=== PATIENT | female | born 1945 | race Caucasian/White ===

== ENCOUNTER 2018-01-18 20:08 | Emergency (ER) | payer MEDICARE, BC ==
[2018-01-18] MEDS ORDERED: diPHENhydraMINE IV* 50 MG/ML 1 ml VIAL (BENADRYL) IV ONE (20:34)
[2018-01-18] MEDS ORDERED: NS 0.9% 1000 ML* 1,000 ML IV ONE (20:34)
[2018-01-18] MEDS ORDERED: LORazepam INJ* 2 MG/ML 1 ML VIAL IV PUSH ONE (20:34)
[2018-01-18 21:08] LABS: ABS Basophils 0.1 10^3/ul (0-0.2); ABS Eosinophils 0.1 10^3/ul (0-0.6); ABS Lymphocytes 1.5 10^3/ul (1.0-4.8); ABS Monocytes 0.5 10^3/ul (0-0.8); ABS Neutrophils 5.7 10^3/ul (1.5-7.7); ABS Nucleated RBC 0 10^3/ul; Eosinophil % 0.8 % (0-6); Hematocrit 36 % (35-47); Hemoglobin 12.5 g/dl (12.0-16.0); Lymphocyte % 19.3 % (25-47); Mean Corpuscular HGB Conc 35 g/dl (31-36); Mean Corpuscular Hemoglobin 34 pg (27-31); Mean Corpuscular Volume 97 fL (80-97); Mean Platelet Volume 7.2 um3 (7.4-10.4); Nucleated Red Blood Cells % 0; Platelet Count 213 10^3/ul (150-450); Red Blood Count 3.68 10^6/ul (4.0-5.4); Red Cell Distribution Width 14 % (10.5-15); White Blood Count 7.8 10^3/ul (3.5-10.8)
[2018-01-18 21:24] LABS: EGFR Non-African American 44.7 (>60)
--- NOTE | 2018-01-18 22:50 | ED ---
Clarence Jones Jennifer, scribed for Masood Cesar MD on 01/18/18 at 203 . Neurological HPI - HPI Summary HPI Summary: The patient is a 72 year old female who presents with tremors for a while. The patient reports shes had tremors in her right arm, but she didnt think about it because she broke her right shoulder. However, the tremors have now spread to her left arm, legs, and entire body. She reports she was diagnosed with Parkinsons a couple months ago. She is able to walk but has been dropping things a lot. The patient denies any recent illness. - History of Current Complaint Stated Complaint: TREMORS Time Seen by Provider: 01/18/18 20:22 Hx Obtained From: Patient Onset/Duration: Gradual Onset, Still Present, Other - "for a while" Timing: Constant Onset Severity: Mild Current Severity: Mild Neurological Deficit Location: Generalized Character: Other: - Tremors Aggravating: Nothing Alleviating: Nothing Associated Signs and Symptoms: Positive: Negative - recent illness - Additional Pertinent History Primary Care Physician: CELINA - Allergy/Home Medications Allergies/Adverse Reactions: Allergies Allergy/AdvReac Type Severity Reaction Status Date / Time MS Atorvastatin Allergy Fatigue Verified 01/18/18 20:40 [Atorvastatin] High blood pressure med Allergy Unknown Unknown Uncoded 01/18/18 20:40 Reaction Details Home Medications: Home Medications Aspirin EC TAB* [Ecotrin EC Low Dose 81 MG*] 81 mg PO DAILY 01/18/18 [History Confirmed 01/18/18] Metoprolol Succinate XL TAB* [Toprol XL TAB*] 25 mg PO QAM 01/18/18 [History Confirmed 01/18/18] Valsartan/HCTZ 160/12.5(NF) [Diovan HCT 160/12.5 (NF)] 1 tab PO QAM 01/18/18 [ History Confirmed 01/18/18] metFORMIN* [Glucophage 850 MG TAB *] 850 mg PO BID 01/18/18 [History Confirmed 01/18/18] PMH/Surg Hx/FS Hx/Imm Hx Endocrine/Hematology History: Reports: Hx Diabetes Denies: Hx Anticoagulant Therapy, Hx Blood Disorders, Hx Blood Transfusions, Hx Bone Marrow Disease, Hx Systemic Lupus Erythematosus, Hx Sickle Cell Disease , Hx Thyroid Disease, Hx Anemia, Hx Unexplained Bleeding, Other Endocrine/ Hematological Disorders Cardiovascular History: Reports: Hx Hypercholesterolemia, Hx Hypertension Denies: Hx Aneurysm, Hx Angina, Hx Angioplasty, Hx Auto Implanted Cardiovert Defib, Hx Cardiac Arrest, Hx Cardiomegaly, Hx Congenital Heart Disease, Hx Congestive Heart Failure, Hx Coronary Artery Disease, Hx Deep Vein Thrombosis, Hx Embolism, Hx Hypotension, Hx Pacemaker/ICD, Hx Peripheral Vascular Disease, Hx Rheumatic Fever, Hx Syncope, Hx Valvular Heart Disease, Other Cardiovascular Problems/Disorders Respiratory History: Reports: Hx Pneumonia Denies: Hx Asthma, Hx Chronic Bronchitis, Hx Chronic Obstructive Pulmonary Disease (COPD), Hx Cystic Fibrosis, Hx Lung Cancer, Hx Pleural Effusion, Hx Pulmonary Edema, Hx Pulmonary Embolism, Hx Seasonal Allergies, Hx Sleep Apnea, Other Respiratory Problems/Disorders GI History: Denies: Hx Cirrhosis, Hx Crohn's Disease, Hx Diverticulosis, Hx Gall Bladder Disease, Hx Gastroesophageal Reflux Disease, Hx Gastrointestinal Bleed, Hx Hiatal Hernia, Hx Irritable Bowel, Hx Jaundice, Hx Obstructive Bowel, Hx Ileostomy, Hx Pyloric Stenosis, Hx Ulcer, Other GI Disorders Musculoskeletal History: Denies: Hx Arthritis Sensory History: Reports: Hx Cataracts, Hx Contacts or Glasses Denies: Hx Eye Injury, Hx Eye Prosthesis, Hx Glaucoma, Hx Legally Blind, Hx Macular Degeneration, Hx Vision Problem, Hx Deafness, Hx Hearing Aid, Hx Hearing Problem, Other Sensory Impairments Opthamlomology History: Reports: Hx Cataracts, Hx Contacts or Glasses Denies: Hx Eye Injury, Hx Eye Prosthesis, Hx Glaucoma, Hx Legally Blind, Hx Macular Degeneration, Hx Vision Problem, Other Sensory Impairments Neurological History: Reports: Other Neuro Impairments/Disorders - Parkinson's Denies: Hx Dementia, Hx Developmental Delay, Hx Headaches, Hx Migraine, Hx Nerve Disease, Hx Seizures, Hx Spinal Cord Injury, Hx Transient Ischemic Attacks (TIA) - Surgical History Surgery Procedure, Year, and Place: 2007 RIGHT shoulder repair, tonsilectomy, partial hip replacement Hx Anesthesia Reactions: No Infectious Disease History: Denies: Hx Hepatitis, Hx Human Immunodeficiency Virus (HIV), Hx of Known/ Suspected MRSA, Hx Tuberculosis - Family History Known Family History: Negative: Hypertension, Diabetes - Social History Alcohol Use: Rare Hx Substance Use: No Substance Use Type: Reports: None Hx Tobacco Use: Yes Smoking Status (MU): Heavy Every Day Tobacco Smoker Type: Cigarettes Amount Used/How Often: one pack a day Length of Time of Smoking/Using Tobacco: 40 years Have You Smoked in the Last Year: Yes Review of Systems Negative: Fever Neurological: Other - Tremors All Other Systems Reviewed And Are Negative: Yes Physical Exam - Summary Physical Exam Summary: Appearance: Well appearing, no pain distress, flat affect Skin: warm, dry, reflects adequate perfusion Head/face: flat facies Eyes: EOMI, [place] ENT: flat facies Neck: supple, non-tender Respiratory: CTA, breath sounds present Cardiovascular: RRR, pulses symmetrical Abdomen: non-tender, soft Bowel Sounds: present Musculoskeletal: normal, strength/ROM intact Neuro: Resting tremors noted mostly in RUE, mild tremor in LUE with intention, sensory motor intact, A&Ox3 Triage Information Reviewed: Yes Vital Signs On Initial Exam: Initial Vitals Temp Pulse Resp BP Pulse Ox 99 F 87 20 152/65 98 01/18/18 20:15 01/18/18 20:15 01/18/18 20:15 01/18/18 20:15 01/18/18 20:15 Vital Signs Reviewed: Yes Diagnostics - Vital Signs Vital Signs Temp Pulse Resp BP Pulse Ox 01/18/18 22:19 84 149/103 01/18/18 22:00 83 100 01/18/18 21:49 81 148/80 100 01/18/18 21:19 82 152/79 96 01/18/18 21:04 16 01/18/18 21:00 82 96 01/18/18 20:49 83 145/75 97 01/18/18 20:20 85 98 01/18/18 20:19 158/96 01/18/18 20:15 99 F 87 20 152/65 98 - Laboratory Lab Results: Lab Results 01/18/18 01/18/18 Range/Units 20:35 20:35 WBC 7.8 (3.5-10.8) 10^3/ul RBC 3.68 L (4.0-5.4) 10^6/ul Hgb 12.5 (12.0-16.0) g/dl Hct 36 (35-47) % MCV 97 (80-97) fL MCH 34 H (27-31) pg MCHC 35 (31-36) g/dl RDW 14 (10.5-15) % Plt Count 213 (150-450) 10^3/ul MPV 7.2 L (7.4-10.4) um3 Neut % (Auto) 72.9 (38-83) % Lymph % (Auto) 19.3 L (25-47) % [place] % (Auto) 6.1 (0-7) % Eos % (Auto) 0.8 (0-6) % Baso % (Auto) 0.9 (0-2) % Absolute Neuts (auto) 5.7 (1.5-7.7) 10^3/ul Absolute Lymphs (auto) 1.5 (1.0-4.8) 10^3/ul Absolute Monos (auto) 0.5 (0-0.8) 10^3/ul Absolute Eos (auto) 0.1 (0-0.6) 10^3/ul Absolute Basos (auto) 0.1 (0-0.2) 10^3/ul Absolute Nucleated RBC 0 10^3/ul Nucleated RBC % 0 Sodium 134 L (139-145) mmol/L Potassium 4.3 (3.5-5.0) mmol/L Chloride 97 L (101-111) mmol/L Carbon Dioxide 26 (22-32) mmol/L Anion Gap 11 (2-11) mmol/L BUN 27 H (6-24) mg/dL Creatinine 1.19 H (0.51-0.95) mg/dL Est GFR ( Amer) 57.5 (>60) Est GFR (Non-Af Amer) 44.7 (>60) BUN/Creatinine Ratio 22.7 H (8-20) Glucose 109 H (70-100) mg/dL Calcium 9.4 (8.6-10.3) mg/dL Result Diagrams: 01/18/18 20:35 01/18/18 20:35 Lab Statement: Any lab studies that have been ordered have been reviewed, and results considered in the medical decision making process. Re-Evaluation - Re-Evaluation First Eval Re-Evaluation Time: 21:32 Change: Improved Comment: Pt is improving, able to eat her sandwich. Course/Dx - Course Course Of Treatment: Patient with parkinsonism that is untreated as she will not take her medications due to side effects. She is here for other options. I treated her tremor with small doses of Ativan and Benadryl as well as IV hydration with success. She is feeling better. I have referred her to neurology which she states her doctor has been getting around to. Discharged to follow up with neurology, primary care physician. - Diagnoses Provider Diagnoses: Parkinsonism Discharge - Sign-Out/Discharge Documenting (check all that apply): Discharge/Admit/Transfer - Discharge Plan Condition: Improved Disposition: HOME Patient Education Materials: Parkinson Disease (ED), Tremors (ED) Referrals: Berhane Alex MD [Primary Care Provider] - Yaneth Odom MD [Medical Doctor] - Additional Instructions: Call for an appt with the neurologist in the morning. Benadryl can help, but it will make you drowsy. Talk to your doctor about other options for tremor. Modify your home with safety features to help prevent falls. Return if worse, new symptoms or other concerns. - Billing Disposition and Condition Condition: IMPROVED Disposition: HOME The documentation as recorded by the Clarence coombs Jennifer accurately reflects the service I personally performed and the decisions made by me, Masood Cesar MD.
[2018-01-18 23:19] VITALS: BP 133/72
== END 2018-01-18 23:30 | disposition home or self-care (01) ==
LOC: ED 20:08
DX: G20 Parkinson's disease (principal); Z88.8 Allergy status to other drugs, medicaments and biological substances; E11.9 Type 2 diabetes mellitus without complications; Z79.84 Long term (current) use of oral hypoglycemic drugs; I10 Essential (primary) hypertension; E78.00 Pure hypercholesterolemia, unspecified; F17.210 Nicotine dependence, cigarettes, uncomplicated
CPT/HCPCS: 36415; 80048; 85025; 96374; 96375; 99284; J1200; J2060

== ENCOUNTER 2018-05-02 02:51 | Inpatient (IN) | payer MEDICARE, BC ==
[2018-05-02] MEDS ORDERED: Tetan/Diph/Pertus SYR(Tdap)* 0.5 ML SYR(BOOSTRIX) use SYR IM ONE (03:03)
[2018-05-02] MEDS ORDERED: Acetaminophen TAB* 325 MG PO ONE ×2 (03:03→08:15)
[2018-05-02] MEDS ORDERED: NS 0.9% 1000 ML* 1,000 ML IV ONE (03:04)
[2018-05-02 03:26] LABS: ABS Basophils 0.1 10^3/ul (0-0.2); ABS Eosinophils 0.3 10^3/ul (0-0.6); ABS Lymphocytes 2.1 10^3/ul (1.0-4.8); ABS Monocytes 0.5 10^3/ul (0-0.8); ABS Neutrophils 6.3 10^3/ul (1.5-7.7); ABS Nucleated RBC 0 10^3/ul; Eosinophil % 2.9 % (0-6); Hematocrit 41 % (35-47); Hemoglobin 14.1 g/dl (12.0-16.0); Mean Corpuscular HGB Conc 35 g/dl (31-36); Mean Corpuscular Hemoglobin 34 pg (27-31); Mean Corpuscular Volume 99 fL (80-97); Mean Platelet Volume 7.7 um3 (7.4-10.4); Nucleated Red Blood Cells % 0; Platelet Count 216 10^3/ul (150-450); Red Blood Count 4.13 10^6/ul (4.00-5.40); Red Cell Distribution Width 15 % (10.5-15); White Blood Count 9.3 10^3/ul (3.5-10.8)
[2018-05-02] MEDS ORDERED: Lidocaine 2% EPI 1:200000 MPF*10-20 ML VIAL ONE (03:27)
--- NOTE | 2018-05-02 03:29 | ED ---
Head Injury - HPI Summary HPI Summary: This is corin Escamilla documenting for Dr. Ramirez Stiles MD. Pt is 72 y/o F BIBA to ED c/o head injury. She fell at home but isnt sure as to how. Notes multiple lacerations over arms and forehead. Rates her pain intensity as 3/10 in severity. Denies alcohol use. PMHx of Parkinson's Disease. - History Of Current Complaint Chief Complaint: EDHeadInjury Stated Complaint: FALL, HEAD LAC Time Seen by Provider: 05/02/18 03:01 Hx Obtained From: Patient Mechanism Of Injury: Fall From A Standing Position Onset/Duration: Started Hours Ago, Still Present Severity Currently: Mild Pain Intensity: 3 Pain Scale Used: 0-10 Numeric Location of Head Injury: Frontal - Allergies/Home Medications Allergies/Adverse Reactions: Allergies Allergy/AdvReac Type Severity Reaction Status Date / Time atorvastatin Allergy Fatigue Verified 05/02/18 03:01 High blood pressure med Allergy Unknown Unknown Uncoded 05/02/18 03:01 Reaction Details PMH/Surg Hx/FS Hx/Imm Hx Endocrine/Hematology History: Reports: Hx Diabetes Denies: Hx Anticoagulant Therapy, Hx Blood Disorders, Hx Blood Transfusions, Hx Bone Marrow Disease, Hx Systemic Lupus Erythematosus, Hx Sickle Cell Disease , Hx Thyroid Disease, Hx Anemia, Hx Unexplained Bleeding, Other Endocrine/ Hematological Disorders Cardiovascular History: Reports: Hx Hypercholesterolemia, Hx Hypertension Denies: Hx Aneurysm, Hx Angina, Hx Angioplasty, Hx Auto Implanted Cardiovert Defib, Hx Cardiac Arrest, Hx Cardiomegaly, Hx Congenital Heart Disease, Hx Congestive Heart Failure, Hx Coronary Artery Disease, Hx Deep Vein Thrombosis, Hx Embolism, Hx Hypotension, Hx Pacemaker/ICD, Hx Peripheral Vascular Disease, Hx Rheumatic Fever, Hx Syncope, Hx Valvular Heart Disease, Other Cardiovascular Problems/Disorders Respiratory History: Reports: Hx Pneumonia Denies: Hx Asthma, Hx Chronic Bronchitis, Hx Chronic Obstructive Pulmonary Disease (COPD), Hx Cystic Fibrosis, Hx Lung Cancer, Hx Pleural Effusion, Hx Pulmonary Edema, Hx Pulmonary Embolism, Hx Seasonal Allergies, Hx Sleep Apnea, Other Respiratory Problems/Disorders GI History: Denies: Hx Cirrhosis, Hx Crohn's Disease, Hx Diverticulosis, Hx Gall Bladder Disease, Hx Gastroesophageal Reflux Disease, Hx Gastrointestinal Bleed, Hx Hiatal Hernia, Hx Irritable Bowel, Hx Jaundice, Hx Obstructive Bowel, Hx Ileostomy, Hx Pyloric Stenosis, Hx Ulcer, Other GI Disorders History: Denies: Hx Renal Disease Musculoskeletal History: Denies: Hx Arthritis Sensory History: Reports: Hx Cataracts, Hx Contacts or Glasses Denies: Hx Eye Injury, Hx Eye Prosthesis, Hx Glaucoma, Hx Legally Blind, Hx Macular Degeneration, Hx Vision Problem, Hx Deafness, Hx Hearing Aid, Hx Hearing Problem, Other Sensory Impairments Opthamlomology History: Reports: Hx Cataracts, Hx Contacts or Glasses Denies: Hx Eye Injury, Hx Eye Prosthesis, Hx Glaucoma, Hx Legally Blind, Hx Macular Degeneration, Hx Vision Problem, Other Sensory Impairments Neurological History: Reports: Other Neuro Impairments/Disorders - Parkinson's Denies: Hx Dementia, Hx Developmental Delay, Hx Headaches, Hx Migraine, Hx Nerve Disease, Hx Seizures, Hx Spinal Cord Injury, Hx Transient Ischemic Attacks (TIA) Psychiatric History: Reports: Hx Panic Disorder - WITH TESTS/DRS - Surgical History Surgery Procedure, Year, and Place: 2007 RIGHT shoulder repair,. tonsilectomy, . partial hip replacement D/T FX, Hx Anesthesia Reactions: No Infectious Disease History: No Infectious Disease History: Denies: Hx Hepatitis, Hx Human Immunodeficiency Virus (HIV), Hx of Known/ Suspected MRSA, Hx Tuberculosis, Traveled Outside the [place] in Last 30 Days - Family History Known Family History: Negative: Hypertension, Diabetes - Social History Alcohol Use: Rare Hx Substance Use: No Substance Use Type: Reports: None Hx Tobacco Use: Yes Smoking Status (MU): Heavy Every Day Tobacco Smoker Type: Cigarettes Amount Used/How Often: one pack a day Length of Time of Smoking/Using Tobacco: 40 years Have You Smoked in the Last Year: Yes Review of Systems Negative: Fever Positive: Other - lacerations on arms and forehead All Other Systems Reviewed And Are Negative: Yes Physical Exam - Summary Physical Exam Summary: VITAL SIGNS: Reviewed. GENERAL: Patient is a well-developed and nourished female who is lying comfortable in the stretcher. Patient is not in any acute respiratory distress. HEAD AND FACE: 10 cm laceration over right forehead. No ecchymosis, hematomas or skull depressions. No sinus tenderness. EYES: PERRLA, EOMI x 2, No injected conjunctiva, no nystagmus. EARS: Hearing grossly intact. Ear canals and tympanic membranes are within normal limits. MOUTH: Oropharynx within normal limits. NECK: Supple, trachea is midline, no adenopathy, no JVD, no carotid bruit, no c- spine tenderness, neck with full ROM. CHEST: Symmetric, no tenderness at palpation LUNGS: Clear to auscultation bilaterally. No wheezing or crackles. CVS: Regular rate and rhythm, S1 and S2 present, no murmurs or gallops appreciated. ABDOMEN: Soft, non-tender. No signs of distention. No rebound no guarding, and no masses palpated. Bowel sounds are normal. EXTREMITIES: Multiple skin tears over both arms, tremors. FROM in all major joints, no edema, no cyanosis or clubbing. NEURO: Alert and oriented x 3. No acute neurological deficits. Speech is normal and follows commands. SKIN: Dry and warm Triage Information Reviewed: Yes Vital Signs On Initial Exam: Initial Vitals Temp Pulse Resp BP Pulse Ox 98.4 F 103 18 164/92 94 05/02/18 02:53 05/02/18 02:53 05/02/18 02:53 05/02/18 02:53 05/02/18 02:53 Vital Signs Reviewed: Yes Procedures - Laceration/Wound Repair 1 Location: face - right forehead Description: Linear Anesthesia: 2.0%, Lido Length, Depth and Shape: 10 cm Irrigated w/ Saline (ccs): 200 Laceration/Wound Explored: clean Suture Type: Nylon - 4-0 Number of Sutures: 22 Diagnostics - Vital Signs Vital Signs Temp Pulse Resp BP Pulse Ox 05/02/18 02:53 98.4 F 103 18 164/92 94 - Laboratory Result Diagrams: 05/02/18 03:14 05/02/18 03:14 Lab Statement: Any lab studies that have been ordered have been reviewed, and results considered in the medical decision making process. - Radiology CXR Radiology Interpretation Completed By: ED Physician - No acute pathology, pending official report. - CT CT Head CT Interpretation Completed By: Radiologist - IMPRESSION: Moderate volume loss and small vessel ischemic changes. No acute intracranial abnormality. Mild right frontal soft tissue swelling and punctate foci of air. ED Physician reviewed this report. CT Cervical Spine CT Interpretation Completed By: Radiologist - IMPRESSION: No acute findings. ED Physician reviewed this report. CT Maxillofacial CT Interpretation Completed By: Radiologist - IMPRESSION: No acute fracture or dislocation. Mild frontal soft tissue swelling, laceration, and foci of air. ED Physician reviewed this report. - EKG 4:12 Cardiac Rate: NL - 80 bpm EKG Rhythm: Sinus Rhythm EKG Interpretation: RBBB. Normal axis. Normal interval. No ischemic changes. Head Injury Course/Dx Course Of Treatment: Pt is 72 y/o F BIBA to ED c/o head injury. She fell at home but isnt sure as to how. Notes multiple lacerations over arms and forehead. Rates her pain intensity as 3/10 in severity. Denies alcohol use. PMHx of diabetes, HTN, and Parkinsons Disease. Physical exam revealed 10 cm laceration over right forehead, multiple skin tears over both arms, and tremors. EKG at 4:12 showed normal sinus rhythm at 80 bpm with normal axis, normal interval, no ischemic changes, and RBBB. CT Head showed moderate volume loss and small vessel ischemic changes, no acute intracranial abnormality, and mild right frontal soft tissue swelling and punctate foci of air. ED Physician reviewed this report and agrees. CT Cervical spine showed no acute findings. ED Physician reviewed this report and agrees. CT Maxillofacial shows no acute fracture or dislocation, mild frontal soft tissue swelling, laceration, and foci of air. ED Physician reviewed this report and agrees. CXR shows no acute pathology, pending official report. In ED course pt was given fluids, Boostrix, and Tylenol. Pt expressed suicidal ideation and depression, and found to be intoxicated. Pt will be evaluated by mental health when alcohol levels lower. Pt diagnosed with alcohol intoxication and depression. Pt signed out to Dr. Cortes awaiting mental health evaluation. - Diagnoses Provider Diagnoses: Alcohol intoxication, Depression Discharge - Sign-Out/Discharge Documenting (check all that apply): Sign-Out Patient Signing out patient TO: Bean Cortes - Discharge Plan Referrals: Berhane Alex MD [Primary Care Provider] -
[2018-05-02 03:37] LABS: INR 0.81 (0.77-1.02)
[2018-05-02 03:40] LABS: EGFR Non-African American 43.4 (>60)
--- OUTSIDE RECORDS SUMMARY | 2018-05-02 05:07 | XMS REPORT ---
:1945 External Reference #:[id number] Author Organization [employer] Address [address] [place] [address] [place] [address] Phone [phone] Care Team Providers Name Role Phone Berhane Alex MD Primary Care Physician Unavailable Payers Type Date Identification Numbers Payment Provider Subscriber Medicare Primary Effective: Policy Number: Medicare Radha Mckinney 2011 [id number] PayID: [id number] [address] [place] [address] Medigap Part B Effective: 2011 Policy Number: BS Merged With [facility] Radha Mckinney [id number] PayID: [id number] [address] [address] [place] [address] Medigap Part B Expires: 2013 Policy Number: BS [facility] Radha Mckinney [id number] PayID: [id number] [address] [address] [place] [address] Problems Date Description Provider Status Onset: 03/20/2016 Closed fracture of neck of femur Kasandra Pritchard M.D. Active Onset: 03/20/2016 Prosthetic arthroplasty of the hip Kasandra Pritchard M.D. Active Onset: 04/19/2018 Chronic fatigue syndrome Will Ace M.D. Active Onset: 04/19/2018 Essential tremor Will Ace M.D. Active Onset: 04/19/2018 Parkinson's disease Will Ace M.D. Active Family History Date Family Member(s) Problem(s) Comments General Diabetes General Cancer General Hypertension Father due to Diabetes () Mother due to Lung Cancer () Social History Type Date Description Comments Lives With Alone Occupation Retired Hand Dominance Left-handed ETOH Use Occasionally consumes alcohol Smoking Patient is a current smoker, smokes every day Exercise Type/Frequency Does not exercise Allergies, Adverse Reactions, Alerts Date Description Reaction Status Severity Comments 02/14/2016 Atorvastatin active 04/06/2016 Lipitor active Medications Medication Date Status Form Strength Qnty SIG Indications Ordering Provider Primidone 04/19 Active Tablets 50mg 60tab take 1 G20 s tablet Janet Ace by mouth twice a day Lovastatin Active Tablets 40mg 1 by Unknown /0000 mouth every night at bedtime Metformin HCL Active Tablets 850mg 1 by Unknown /0000 mouth twice a day Aspir-81 Active Tablets 81mg 1 by Unknown /0000 DR mouth every day Metoprolol Active Tablets 25mg Take 1 Unknown Succinate ER /0000 ER 24HR Tablet By Mouth Every Day Valsartan-Hydrochl Active Tablets 160-12.5m Take 1 Unknown orothiazide /0000 g Tablet By Mouth Every Day Chlordiazepoxide 00 Hx Capsules 25mg twice a Unknown HCL /0000 day - 04/17 Docusate Sodium 00 Hx Capsules 100mg 1 by Unknown /0000 mouth - twice a Omeprazole Hx Capsules 20mg 1 by Unknown /0000 DR mouth - every Zoloft Hx Tablets 25mg 1 by Unknown /0000 mouth - every Metoprolol Hx Tablets 25mg 1 by Unknown Tartrate /0000 mouth - twice a Vitamin D-3 Hx Capsules 1000Unit 1 by Unknown /0000 mouth - every Tamiflu Hx Capsules 75mg 1 by Unknown /0000 mouth - twice a 03/19 day x days Carbidopa-Levodopa Hx Tablets 25-100mg Take 1 Unknown /0000 Tablet - By Mouth 04/18 Twice Day Primidone Hx Tablets 50mg Take 1 Unknown /0000 Tablet - By Mouth 04/18 Every Hours Metoprolol 00 Hx Tablets 25mg Take 1 Unknown Succinate ER /0000 ER 24HR Tablet - By Mouth 04/18 Day Vital Signs Date Vital Result Comment 04/19/2018 Height 67 inches 5'7" Weight 130.00 lb Heart Rate 84 /min BP Systolic 112 mmHg BP Diastolic 78 mmHg Respiratory Rate 16 /min BMI (Body Mass Index) 20.4 kg/m2 09/14/2016 Height 67 inches 5'7" Heart Rate 83 /min BP Systolic 151 mmHg BP Diastolic 72 mmHg Pain Level 1 06/05/2016 Height 67 inches 5'7" Weight 130.00 lb Pain Level 0 BMI (Body Mass Index) 20.4 kg/m2 05/01/2016 Height 67 inches 5'7" Weight 130.00 lb Pain Level 1 BMI (Body Mass Index) 20.4 kg/m2 04/06/2016 Height 67 inches 5'7" Weight 130.00 lb Pain Level 2 BMI (Body Mass Index) 20.4 kg/m2 03/20/2016 Height 67 inches 5'7" Weight 130.00 lb Pain Level 3 BMI (Body Mass Index) 20.4 kg/m2 Results Description No Information Procedures Date CPT Code Description Status 01/19/2016 32620 Open TX Of Femoral FX,Promimal End,Neck Internal Completed Fixation 01/19/2016 30759 Open TX Of Femoral FX,Promimal End,Neck Internal Completed Fixation Encounters Type Date Location Provider CPT E/M Dx Office Visit 04/19/2018 [place] Christoph Ace M.D. 42006 G20 10:30a [facility] G25.0 R53.82 Office Visit 09/14/2016 2:45p [facility] Prit[facility] M.D. 33489 Z96.642 C.MJose Antonio T84.021D Office Visit 06/05/2016 2:00p [facility] P[facility] 94015 T84.021D Melodie Gonzales Z96.642 Office Visit 05/01/2016 2:00p [facility] 52314 T84.021D Melodie Gonzales Z96.642 Z47.1 Office Visit 04/06/2016 1:30p [facility] 91024 T84.021D Melodie Gonzales Z47.1 Z96.642 Office Visit 04/05/2016 9:59a [facility] Gisela Perry, 17874 S73.005A Assoc, Hospitalists Janet I10 Office Visit 04/04/2016 9:59a [facility] Crescencio Mart, 58393 E78.5 Hospitalists N.P. E11.9 S73.005A I10 Office Visit 02/03/2016 2:31p [facility] Jasvir Marvin M.D. 87269 E16.2 Hospitalists E11.9 S72.002D Office Visit 01/21/2016 1:49p [facility] [address], 30520 E11.9 Hospitalists Janet E78.0 S72.002A I10 Office Visit 01/20/2016 1:48p [facility] [address], [address]77 E11.9 Hospitalists Janet E78.0 S72.002A I10 Office Visit 01/19/2016 1:47p [facility] [place], [address] E11.9 Assoc, Hospitalists Janet E78.0 S72.002A I10 Office Visit 01/19/2016 7:00a [facility] [place] [address] S72.042A C.M.A. Office Visit 01/20/2010 12:45a [facility] Luigi Corcoran, 25690 780.97 Assoc, Hospitalists Janet 305.00 250.02 401.9 Office Visit 01/19/2010 3:45a [facility] Alec Zavala, 76030 305.00 Assoc, Hospitalists Janet 401.9 272.4 250.00 Plan of Care Future Appointment(s):06/07/2018 11:30 am - Will Ace M.D. at [place] [facility]04/19/2018 - Will Ace M.D.G20 Parkinson's diseaseNew Medication:Primidone 50 mgNew Xrays:MRI Brain W/OFollow up:Follow up in 6 weeksRecommendations:Call me in 4 weeks if no eqsjimT57.0 Essential ozvqrpE52.82 Chronic fatigue, unspecified
--- NOTE | 2018-05-02 07:10 | UC ---
- Progress Note Progress Note: This patient was signed out from Dr. Stiles to Dr. Cortes, awaiting MHE. Upon re- eval at 0830, the patient has a FREDERICK but is A&Ox3. She was given Toradol and Tylenol. MHE done by Dr. Benson at 0909. The patient was supposed to be discharged with dx of alcohol intoxication. Dr. Benson recommended a psychologist social consult. Patient understands and agrees. Upon re-eval at 1152 of [place] the psychologist social, the patient is very, very sad and depressed. Therefore, we will consult Dr. Benson for another re-eval of the patient for depression. Consulted Dr. Benson at 1219 who accepts the patient for admission with dx of alcohol intoxication, depression, and SI. Re-Evaluation - Re-Evaluation First Eval Re-Evaluation Time: 08:20 Change: Unchanged - Pt. is AOx3 and has a FREDERICK. She was given Toradol and Tylenol and waiting for a MHE. Course/Dx - Diagnoses Provider Diagnoses: Alcohol intoxication, Depression, Suicidal ideation Discharge - Sign-Out/Discharge Documenting (check all that apply): Patient Departure - Discharge Plan Condition: Stable Disposition: ADMITTED TO [facility] Referrals: Berhane Alex MD [Primary Care Provider] -
--- NOTE | 2018-05-02 07:40 | RAD ---
INDICATION: Fall COMPARISON: Most recent comparison chest x-rays dated January 20, 2016 TECHNIQUE: Single AP portable view of the chest was obtained. FINDINGS: Image quality is compromised due to the relative inferiority of a portable chest x-ray. The heart and mediastinum exhibit normal size and contour. The lungs are grossly clear. There is no evidence of a large pleural effusion. The right proximal humerus plate and screw fixator is anatomically aligned. There is evidence of bilateral healed rib fractures stable on the left and new on the right since the January 20, 2016 chest x-ray. IMPRESSION: 1. There are new chronic appearing rib fractures at the right posterior sixth, seventh and eighth ribs relative to the January 20, 2016 chest x-ray. 2. Otherwise no radiographic evidence for acute cardiopulmonary abnormality on this portable chest x-ray. R0
--- NOTE | 2018-05-02 07:59 | RAD ---
indication: For head laceration above the right eye after a fall COMPARISON: None A CT scan of the brain, maxillofacial bones and c-spine was performed without intravenous contrast enhancement. Contiguous axial sections were obtained from the lung apices through the vertex of the skull. BRAIN: The ventricles, cisterns and sulci exhibit symmetrical involutional changes. No significant focal abnormality or mass effect is seen. There is mild periventricular and subcortical white matter hypoattenuation most consistent with chronic microvascular disease. The austin-white differentiation is adequately maintained. There is no evidence for intracranial hemorrhage. The calvarium is intact without radiographically apparent fracture. The mastoid air cells are appropriately aerated. FACIAL BONES: There is mild infiltration and thickening of the soft tissues overlying the right frontal bone as well as several foci of gas consistent with soft tissue injury/laceration. Bones: There is no displaced fracture or dislocation. The orbital rim is intact. The zygomatic arch is intact. The pterygoid plates are intact Orbits: The globes are round. The optic nerves are symmetric. The extraocular musculature is normal. There is no post septal or intraconal inflammatory change. There is no retrobulbar hematoma. Paranasal Sinuses: There is very mild mucosal thickening of the right maxillary sinus and mild nodular mucosal thickening of the left maxillary sinus. The remaining visualized sinuses are clear. C-SPINE: On the sagittal view images the vertebral bodies and bilateral facet joints are correctly aligned. The dens is intact and the atlantoaxial interval is not widened. Degenerative changes include loss of intervertebral disc height and mild marginal osteophyte formation. The most severe degenerative changes are seen at C6/C7. There is uncovertebral hypertrophy at this same level. There is no prevertebral soft tissue swelling. There is no hyperdense material in the cervical canal to indicate hemorrhage. The visualized musculature and soft tissues are normal. There is no gross lymphadenopathy visualized. There is at least one 4 mm hypoattenuating focus in the right lobe of the thyroid. There is coarse calcification at the bilateral carotid bulbs and visualized portion of the left subclavian artery. The visualized portion of the lung apices are clear. IMPRESSION: 1. No calvarial fracture or acute intracranial hemorrhage. 2. There is evidence of superficial soft tissue injury overlying the right frontal bone without underlying facial bone fractures. 3. Degenerative changes of the cervical spine without acute fracture or dislocation. 4. Mild heterogeneity of the thyroid with 4 mm hypoattenuating in the right lobe. If clinically warranted superior characterization of the thyroid can be made with nonemergent ultrasound.
[2018-05-02] MEDS ORDERED: Ketorolac INJ* 30 MG/ML 1 ML VIAL IV PUSH ONE (08:15)
[2018-05-02 08:44] LABS: Urine Appearance Cloudy; Urine Blood Negative (Negative); Urine Color Yellow; Urine Ketones Negative (Negative); Urine Protein Negative (Negative); Urine Urobilinogen Negative (Negative)
[2018-05-02] MEDS ORDERED: Al Hydrox/Mg Hydrox/Simet LIQ* 30 ML UDC PO PRN (12:20)
[2018-05-02] MEDS ORDERED: Thiamine IV* 100 MG/ML 2 ML VIAL IM ONE (12:23)
[2018-05-02] MEDS ORDERED: LORazepam TAB(*) 1 MG PO SCH (13:00)
[2018-05-02] MEDS: Acetaminophen TAB* 325 MG PO PRN (21:09)
[2018-05-02] MEDS: metFORMIN* 850 MG TAB PO SCH (21:09)
[2018-05-02] MEDS: Aspirin EC TAB* 81 MG TAB.EC PO SCH (21:16)
[2018-05-02] MEDS: Valsartan TAB* 160 MG PO SCH (21:16)
[2018-05-02] MEDS: Metoprolol Succinate XL TAB* 25 MG PO SCH (21:16)
[2018-05-03] MEDS: Acetaminophen TAB* 325 MG PO PRN ×3 (02:15→22:54)
[2018-05-03] MEDS: Valsartan TAB* 160 MG PO SCH (08:20)
[2018-05-03] MEDS: Metoprolol Succinate XL TAB* 25 MG PO SCH (08:21)
[2018-05-03] MEDS: Hydrochlorothiazide TAB* 25 MG PO SCH (08:21)
[2018-05-03] MEDS: Thiamine TAB* 100 MG TAB PO SCH (08:22)
[2018-05-03] MEDS: Aspirin EC TAB* 81 MG TAB.EC PO SCH (08:22)
[2018-05-03] MEDS: metFORMIN* 850 MG TAB PO SCH ×2 (08:22→21:20)
[2018-05-03] MEDS: Folic Acid TAB* 1 MG PO SCH (08:23)
[2018-05-03] MEDS: Multivitamins/Minerals TAB PO SCH (08:23)
--- NOTE | 2018-05-03 13:01 | PN ---
[facility]HU: Group Therapy Note - Service Type Service Type: 68388 Group Psychotherapy - Cognitive Behavioral Group Therapy ( CBT):Patient was attentive and participatory in CBT programming this morning, and remained in good behavioral control. Patient expressed positive insights regarding relevant treatment interventions and goals.
[2018-05-03] MEDS: Primidone TAB(*) 50 MG PO SCH ×2 (13:31→21:19)
--- NOTE | 2018-05-03 15:42 | HP ---
HISTORY AND PHYSICAL: DATE OF ADMISSION: 05/02/18 PROVIDER: Brisa Pena NP in Psychiatry SUPERVISING PHYSICIAN: Fabian Benson MD * (DICTATED BY BRISA PENA NP ) JUSTIFICATION FOR ADMISSION: The patient is in need of 24-hour supervision and care secondary to suicidal ideation. CHIEF COMPLAINT: "This is all my fault. Never in a 100 years would I do anything." HISTORY OF PRESENT ILLNESS: The patient is a 72-year-old single female with no history of mental illness who arrives brought in by ambulance after falling and hitting her head and getting a large laceration on her forehead requiring 22 stitches as well as skin tears to lower left and right arms. Radha got a diagnosis of Parkinson's disease 3 months ago and since then has been drinking more and has been struggling with depression and anxiety. She states that she does not have a wish to , but she is depressed and she thinks that it is entirely linked to the diagnosis. She has not gotten any therapy for dealing with the stress of the diagnosis and she is not sure that she wants to. Another stressor is that she lives alone. She is afraid she is going to fall in the shover and not have anyone to help her get up and that she will there. She is sleeping alright. She feels guilt about coming to the hospital. She cannot concentrate here. She is a very slow walker, but I think that is to keep herself from falling. She denies suicidal ideation. PAST PSYCHIATRIC HISTORY: She denies any previous admissions. Denies previous suicide attempts or ideation. Denies access to weapons. Denies trauma. Denies TBI. Denies previous psychiatric meds. PAST MEDICAL HISTORY: Significant for this current fall and for Parkinson's disease, which she was diagnosed with by Dr. Will Ace, a Neurologist in [place], [place]. FAMILY HISTORY: She states there is no psychiatric history on either mom or dad 's side. SUBSTANCE ABUSE: She does smoke cigarettes and she does drink alcohol. She states she drinks more alcohol now that she has this diagnosis of Parkinsons, but in the past she drinks 3 to 5 drinks a week. SOCIAL HISTORY: She lives alone in [place], [place]. She denies history of abuse. She went to college for social science. She is not . 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 She has never been in , has no legal problems. REVIEW OF SYSTEMS: The patient reports feeling fatigued. She denies shortness of breath. She is cold, but the unit is chilly. She denies chest pain or abdominal pain. She has Parkinson's symptoms such as tremors and lack of balance. She denies fevers or changes in weight. It should be noted that she is quite slim with papery skin. PHYSICAL EXAMINATION On 05/03/18, at 07:44 in the morning her temperature was 97.7, pulse was 72, respirations 16, O2 sat on room air 98%, and blood pressure 149/63. For further exam data, please see emergency department records. LABORATORY DATA: Radha has elevated MCV and MCH. Lymph percentage is a little low, her sodium is low at 133, chloride is low at 98, carbon dioxide is low at 19, anion gap is high at 16, BUN is high at 31, and creatinine is high at 1.22. BUN and creatinine ratio is 25.4, glucose is 111. Hemoglobin A1c is 5.6, triglycerides 91, cholesterol 186, LDL cholesterol 93, HDL cholesterol 75.1. Urinalysis was negative toxicology. There is a presumptive positive on the barbiturates screen, which is due to her taking primidone and her serum alcohol level came back at 222. MENTAL STATUS EXAM: This is a woman who was once 5 feet 7 inches, is now shorter due to appearing to have shrunken a bit. She is quite skinny, weighing only about 130 pounds. She has white hair. She has a gash on her forehead requiring 22 stitches. She has wounds on her lower arms. She is hypokinetic. She is calm, but she is tearful. Her speech is normal rate, tone, and volume. She is dysthymic. She is crying throughout our interview. Her thought process, rate is normal and she is logical and not delusional. She is not homicidal, not suicidal. She is having no hallucinations. Her insight is good. Her judgement is good. She is alert and oriented x3. DIAGNOSES: [place] I: Adjustment disorder, depressive disorder. Rule out anxiety disorder. [place] II: Deferred. [place] III: Parkinson's and diabetes. IMPRESSION: Radha is a 72-year-old woman who has a recent diagnoses of Parkinson's disorder, which she is grieving. It appears that when she fell and was intoxicated, she made statements that indicated she might be considering suicide. In her more common movements of sobriety, she does not feel that way and would really like to leave the unit. PLAN: The patient is admitted to the Adult Behavioral Health Unit and placed on q.15 minute checks for her own safety. The patient is encouraged to participate in supportive milieu, individual, and group therapies. Estimated length of stay is 1 to 3 days. We will titrate medications to efficacy and monitor for mood and thought content. Discharge planning will include outpatient providers. BRISA PENA, AMAURY [id number]/[facility] #: [id number] VITALIY
[2018-05-04 07:57] VITALS: BP 150/66
[2018-05-04] MEDS: Folic Acid TAB* 1 MG PO SCH (09:26)
[2018-05-04] MEDS: Hydrochlorothiazide TAB* 25 MG PO SCH (09:26)
[2018-05-04] MEDS: metFORMIN* 850 MG TAB PO SCH (09:26)
[2018-05-04] MEDS: Metoprolol Succinate XL TAB* 25 MG PO SCH (09:26)
[2018-05-04] MEDS: Aspirin EC TAB* 81 MG TAB.EC PO SCH (09:26)
[2018-05-04] MEDS: Primidone TAB(*) 50 MG PO SCH (09:27)
[2018-05-04] MEDS: Thiamine TAB* 100 MG TAB PO SCH (09:27)
[2018-05-04] MEDS: Valsartan TAB* 160 MG PO SCH (09:27)
[2018-05-04] MEDS: Multivitamins/Minerals TAB PO SCH (09:27)
--- NOTE | 2018-05-05 03:51 | DS ---
DISCHARGE SUMMARY: DATE OF ADMISSION: 05/02/18 DATE OF DISCHARGE: 05/04/18 PROVIDER: Brisa Pena NP, in Psychiatry. SUPERVISING PHYSICIAN: Dr. Fabian Benson.* (DICTATED BY BRISA PENA NP ) DIAGNOSES: [place] I: Grieving and adjustment disorder. [place] II: Deferred. CONDITION AT THE TIME OF DISCHARGE: Improved. Psychiatrically cleared, stable. Participated in groups, social with peers. She has done well here psychiatrically. No new meds were started. She will attend treatment with an outpatient psychologist. MENTAL STATUS EXAM: At the time of discharge, Radha is calm, cooperative, makes good eye contact. She is alert and oriented x3. Her grooming is good. Her speech pace is normal. Thought processes are logical. She is not psychotic , delusional, and she denies AH, VH, SI, and HI. Her insight and judgment are good. She is willing to follow up. DISCHARGE INSTRUCTIONS TO THE PATIENT: A. Medications: There are no medications started but she came in on: 1. Aspirin 81 mg daily. 2. Folic acid 1 mg daily. 3. Hydrochlorothiazide 12.5 mg q.a.m. 4. Metformin 850 p.o. b.i.d. 5. Metoprolol XL 25 mg q.a.m. 6. Primidone 50 mg b.i.d. 7. Thiamine 100 mg daily. 8. Valsartan 160 mg q.a.m. B. Diet: Diabetic. C. Activities: As tolerated. She is a nonsmoker at this time. There are no studies pending at the time of discharge. D. Followup Care: She has appointments with Denise Ramírez, visiting nurse services, and Dr. Berhane Alex, her primary care physician. E. Substance abuse followup: Not indicated at this time. HOSPITAL COURSE: Part A. Chief complaint: "This is all my fault, never in one hundred years would I do anything." The patient is a 72-year-old single female with no history of mental illness, who arrived, brought in by ambulance after falling and hitting her head and getting a large laceration on her forehead requiring 22 stitches as well as skin tears to lower left and right arms. Radha got a diagnosis of Parkinson's disease 3 months ago and since then has been drinking more and has been struggling with depression and anxiety. She states that she does not have a wish to but she is depressed and she thinks that it is entirely linked to the diagnosis. She has not gotten any therapy for dealing with stress of the diagnosis and she is not sure that she wants to. Her another stressor is that she lives alone. She is afraid she is going to fall in the shower and not have anyone help her get up and that she will there. She is sleeping alright. She feels guilty about coming to the hospital. She cannot concentrate here. She is a very slow walker, but I think that is to keep herself from falling. She denies suicidal ideation. Part B. Psychiatric treatment was rendered. The patient was admitted to the adult behavioral unit and placed on 15-minute checks for safety. Radha was quite tearful throughout her visit as she did not want to be here and then once she found out that she was leaving, she was crying tears of happiness. There were no med changes made as she did not want to start any psychiatric meds. I did discuss with her the possibility of an SSRI and she said she would consider that for later. She does not have any family close by. No consults were entered. She is much improved. She still feels guilty about coming to the hospital and she feels foolish for drinking too much and falling. We did discuss her drinking and she agreed to drink less and she is happy to be having been assigned to visiting nurse services and she agrees to follow up with them. BRISA PENA, AMAURY [id number]/[facility] #: [id number] VITALIY
== END 2018-05-04 14:30 | disposition home or self-care (01) | DRG 881 ==
LOC: ED 02:51 → BSU 14:08
PROVIDERS: ADMIT Psychiatry & Neurology Psychiatry; ATTEND Psychiatry & Neurology Psychiatry
PROC: 0HQ1XZZ Repair Face Skin, External Approach (ICD-10-PCS; principal; 2018-05-02)
PROC: GZHZZZZ Group Psychotherapy (ICD-10-PCS; 2018-05-03)
DX: F43.21 Adjustment disorder with depressed mood (principal); R45.851 Suicidal ideations; G20 Parkinson's disease; E11.9 Type 2 diabetes mellitus without complications; H26.9 Unspecified cataract; E78.00 Pure hypercholesterolemia, unspecified; Y90.9 Presence of alcohol in blood, level not specified; I10 Essential (primary) hypertension; F10.929 Alcohol use, unspecified with intoxication, unspecified; Z96.649 Presence of unspecified artificial hip joint; F41.9 Anxiety disorder, unspecified; F17.210 Nicotine dependence, cigarettes, uncomplicated; S01.81XA Laceration without foreign body of other part of head, initial encounter; S51.812A Laceration without foreign body of left forearm, initial encounter; W19.XXXA Unspecified fall, initial encounter; S51.811A Laceration without foreign body of right forearm, initial encounter; I45.10 Unspecified right bundle-branch block; Z87.01 Personal history of pneumonia (recurrent); Z88.8 Allergy status to other drugs, medicaments and biological substances; Y92.009 Unspecified place in unspecified non-institutional (private) residence as the place of occurrence of the external cause; Z72.89 Other problems related to lifestyle; Z79.84 Long term (current) use of oral hypoglycemic drugs
CPT/HCPCS: 36415; 70450; 70486; 71045; 72125; 80053; 80061; 80307; 80320; 80329; 81003; 82550; 83036; 84443; 85025; 85610; 85730; 90715; 90853; 93005; 99222; 99238; 99283; A9270-GY; G0480; G8987-GO-CI; G8988-GO-CI; G8989-GO-CI; J1885

== ENCOUNTER → 2018-12-01 10:48 | Day surgery (SDC) | payer MEDICARE, BC ==
[~2018-12-01 10:48] MED LIST: Clopidogrel TAB* 300 MG PO ONE; Clopidogrel TAB* 75 MG PO SCH; Heparin 2 UNITS/ML IVPREMIX* 3,000 UNIT/1,500 ML BAG IV ONE; Heparin(*) 1000 UNIT/ML 10 ML VIAL CATH LAB IV ONE; Iodixanol 320 (CONTRAST) 100 ML SDV ONE; Ketorolac INJ* 30 MG/ML 1 ML VIAL ONE; LORazepam TAB(*) 1 MG ONE; Lidocaine 1% INJ* 10 MG/ML 30 ML SDV ONE; Midazolam* 1 MG/ML 5 ML VIAL (5 MG) ONE; fentaNYL* 50 MCG/ML 2 ML VIAL (100 MCG VIAL) ONE
[2018-12-01 12:06] LABS: ABS Basophils 0.1 10^3/ul (0-0.2); ABS Eosinophils 0.3 10^3/ul (0-0.6); ABS Lymphocytes 2.1 10^3/ul (1.0-4.8); ABS Monocytes 0.4 10^3/ul (0-0.8); ABS Neutrophils 6.2 10^3/ul (1.5-7.7); ABS Nucleated RBC 0 10^3/ul; Eosinophil % 3.5 %; Hematocrit 37 % (35-47); Hemoglobin 12.6 g/dl (12.0-16.0); Lymphocyte % 22.9 %; Mean Corpuscular HGB Conc 34 g/dl (31-36); Mean Corpuscular Hemoglobin 32 pg (27-31); Mean Corpuscular Volume 94 fL (80-97); Mean Platelet Volume 7.9 fL (7.4-10.4); Nucleated Red Blood Cells % 0.1; Platelet Count 268 10^3/ul (150-450); Red Blood Count 3.96 10^6/ul (4.00-5.40); Red Cell Distribution Width 16 % (10.5-15); White Blood Count 9.1 10^3/ul (3.5-10.8)
[2018-12-01 12:13] LABS: Activated Partial Thrombo Time 26.1 seconds (26.0-36.3); INR 0.9 (0.77-1.02)
[2018-12-01 12:22] LABS: BUN/Creatinine Ratio 34.5 (8-20); Calcium 9.7 mg/dL (8.6-10.3); EGFR Non-African American 44.6 (>60)
[2018-12-01 12:23] LABS: Potassium 5.1 mmol/L (3.5-5.0)
[2018-12-01 16:17] VITALS: BP 141/75
--- NOTE | 2018-12-01 18:05 | PN ---
Progress Note - Progress Note Date of Service: 12/01/18 SOAP: Subjective: Dougie pain or nausea. No SOB. Objective: Selected Entries 12/01/18 12/01/18 12/01/18 11:36 12:00 15:53 Temperature 99.3 F Temperature Temporal Artery Source Scan Pulse Rate Heart Rate 64 Blood Pressure 173/78 (mmHg) Blood Pressure 99 Mean O2 Sat by Pulse Oximetry 12/01/18 12/01/18 15:56 16:00 Temperature Temperature Source Pulse Rate 69 61 Heart Rate Blood Pressure 141/75 (mmHg) Blood Pressure 83 Mean O2 Sat by Pulse 97 Oximetry NAD, AAO x 3 Left groin is soft, nontender Dressing is CDI 2+ pulse at left BRICK UNLOADER TENDER 1+ pulse at left pop, DPA and THERAPY COORDINATOR Neuromuscular function of left leg and foot is grossly intact Assessment: 73 YOF with left forefoot critical limb ischemia (CLI), s/p LLE arteriogram from ipsilateral left CF arteriotomy, catheter & wire revascularization of occluded distal left SFA and balloon angioplasty of the entire left SFA and proxmial popliteal artery. Patient received loading dose of Plavix 300 mg at 1700 hours. Plan: 1. Plavix 75 mg PO daily x 3-6 months (start 12/02/18). 2. Routine IR follow will include RN call 12/04/18. 3. DAJUAN and clinic follow up in ~1 month. 4. Patient advised to adhere to strict wound care to her left forefoot. 5. Relationship between smoking and PAD/CLI was again emphasized and patient encouraged to quit.
== END | disposition home or self-care (01) ==
LOC: CHICATH 10:48
PROVIDERS: ATTEND Radiology Diagnostic Radiology
DX: I70.262 Atherosclerosis of native arteries of extremities with gangrene, left leg (principal); Z72.0 Tobacco use; E11.9 Type 2 diabetes mellitus without complications; Z79.84 Long term (current) use of oral hypoglycemic drugs; I10 Essential (primary) hypertension; G20 Parkinson's disease
CPT/HCPCS: 36415; 76937; 80048; 85025; 85347; 85610; 85730; 99156; 99157; A9270-GY; C1725; C1769; C1887; C1894; J1644; J1885; J2250; J3010

== ENCOUNTER 2019-04-12 20:39 | Emergency (ER) | payer MEDICARE, BC ==
--- OUTSIDE RECORDS SUMMARY | 2019-04-12 21:31 | XMS REPORT | Continuity of Care Document ---
:1945 External Reference #:[id number] Author Name mihaela Nola Care Team Providers Name Role Phone Berhane Moore MD Primary Care Physician Unavailable Payers Date Identification Numbers Payment Provider Subscriber Effective: 2011 Policy Number: [id number] Medicare Radha Mckinney PayID: [id number] [address] [place] [address] Effective: 2011 Policy Number: [id number] Facets Radha Mckinney PayID: [id number] [address] [address] [place] [address] Effective: 2011 Policy Number: [id number] Medicare Radha Mckinney Expires: 2018 PayID: [id number] [address] [place] [address] Expires: 2013 Policy Number: [id number] BS Of [facility] Radha Mckinney PayID: [id number] [address] [address] [place] [address] Problems Active Problems Provider Date Closed fracture of neck of femur Kasandra Pritchard M.D. Onset: 03/20/2016 Prosthetic arthroplasty of the hip Kasandra Pritcahrd M.D. Onset: 03/20/2016 Parkinson's disease Will Ace M.D. Onset: 04/19/2018 Essential tremor Will Ace M.D. Onset: 04/19/2018 Chronic fatigue syndrome Will Ace M.D. Onset: 04/19/2018 Atherosclerosis of arteries of the Abdirizak Chela Maddox M.D. Onset: 09/07/2018 extremities Family History Date Family Member(s) Observation Comments General Diabetes General Cancer General Hypertension Father due to Diabetes () Mother due to Lung Cancer () Social History Type Date Description Comments Sex Unknown Lives With Alone Occupation Retired Hand Dominance Left-handed Tobacco Use Start: Unknown current cigarette smoker Smoking Status Reviewed: 03/17/19 current cigarette smoker ETOH Use Denies alcohol use quit 04/2018 Tobacco Use Start: Unknown Patient is a current smoker, smokes every day Recreational Drug Use Denies Drug Use Exercise Type/Frequency Does not exercise Allergies, Adverse Reactions, Alerts Active Allergies Reaction Severity Comments Date Lipitor 04/06/2016 Medications Active Medications SIG Qnty Indications Ordering Provider Date Primidone take 4 tablets 240tabs G25.0 Will Ace, 03/17/2019 50mg twice a day M.D. Tablets Plavix 1 by mouth 90tabs Abdirizak Maddox, 12/02/2018 75mg Tablets every day M.D. Lovastatin 1 by mouth Unknown 40mg every night at Tablets bedtime Metformin HCL 1 by mouth Unknown 850mg twice a day Tablets Aspir-81 1 by mouth Unknown 81mg Tablets every day Metoprolol Succinate Take 1 Tablet Unknown ER By Mouth Every 25mg Tablets ER Day 24HR Valsartan-Hydrochlor Take 1 Tablet Unknown othiazide By Mouth Every 160-12.5mg Day Tablets Vitamin Deficiency once monthly at Unknown Injectable doctor's System-B12 1000mcg/ML Kit Wellbutrin SR take two Unknown 150mg tablets by Tablets ER 12HR mouth daily. Amoxicillin 1 tab twice a Unknown 125mg day for 10 days Chewtabs History Medications Daptomycin iv every day x Geremias Amaya 07/11/2018 - 500mg Solution 42 days at [facility] Janet Hyde 08/21/2018 Rec (started 07/11/18 - end date 08/21/18) Primidone take 3 tablet by 180tabs G25.0 Crescencio Mart, 06/07/2018 - 50mg Tablets mouth twice a N.P. 03/17/2019 day Primidone take 1 tablet by 60tabs G25.0 Will Ace, 04/19/2018 - 50mg Tablets mouth twice a M.D. 06/07/2018 day Chlordiazepoxide HCL twice a day Unknown - 25mg 04/17/2018 Capsules Docusate Sodium 1 by mouth twice Unknown - 100mg a day 04/17/2018 Capsules Omeprazole 1 by mouth every Unknown - 20mg Capsules DR day 04/17/2018 Zoloft 1 by mouth every Unknown - 25mg Tablets day 03/19/2016 Metoprolol Tartrate 1 by mouth twice Unknown - 25mg a day 04/18/2018 Tablets Vitamin D-3 1 by mouth every Unknown - 1000Unit day 04/17/2018 Capsules Tamiflu 1 by mouth twice Unknown - 75mg Capsules a day x 5 days 03/19/2016 Carbidopa-Levodopa Take 1 Tablet By Unknown - 25-100mg Mouth Twice A 04/18/2018 Tablets Day Primidone Take 1 Tablet By Unknown - 50mg Tablets Mouth Every 6 04/18/2018 Hours Metoprolol Succinate ER Take 1 Tablet By Unknown - Mouth Every Day 04/18/2018 25mg Tablets ER 24HR Doxycycline Hyclate Take 1 Capsule Unknown - 100mg By Mouth Twice A 07/11/2018 Capsules Day Vital Signs Date Vital Result Comment 03/17/2019 1:25pm Height 67 inches 5'7" Weight 110.00 lb Heart Rate 72 /min BP Systolic 128 mmHg BP Diastolic 70 mmHg BMI (Body Mass Index) 17.2 kg/m2 01/11/2019 10:50am Height 67 inches 5'7" Weight 110.00 lb Heart Rate 76 /min BP Systolic Sitting 130 mmHg BP Diastolic Sitting 70 mmHg Respiratory Rate 18 /min BMI (Body Mass Index) 17.2 kg/m2 11/21/2018 1:39pm Height 67 inches 5'7" Weight 108.00 lb Heart Rate 88 /min BP Systolic 126 mmHg BP Diastolic 68 mmHg BMI (Body Mass Index) 16.9 kg/m2 10/24/2018 1:52pm Height 67 inches 5'7" Weight 114.00 lb Heart Rate 84 /min BP Systolic Sitting 122 mmHg BP Diastolic Sitting 78 mmHg Respiratory Rate 14 /min Body Temperature 98.0 F BMI (Body Mass Index) 17.9 kg/m2 09/07/2018 10:41am Height 67 inches 5'7" Weight 109.00 lb Heart Rate 86 /min BP Systolic Sitting 104 mmHg BP Diastolic Sitting 76 mmHg Respiratory Rate 16 /min BMI (Body Mass Index) 17.1 kg/m2 08/22/2018 2:51pm Height 67 inches 5'7" Weight 110.00 lb Heart Rate 92 /min BP Systolic Sitting 110 mmHg BP Diastolic Sitting 62 mmHg Respiratory Rate 14 /min Body Temperature 98.1 F BMI (Body Mass Index) 17.2 kg/m2 08/19/2018 2:41pm Height 67 inches 5'7" Weight 110.00 lb BP Systolic Sitting 112 mmHg BP Diastolic Sitting 64 mmHg Respiratory Rate 16 /min Pain Level 0 BMI (Body Mass Index) 17.2 kg/m2 08/04/2018 2:21pm Height 67 inches 5'7" Weight 112.12 lb Heart Rate 84 /min BP Systolic Sitting 124 mmHg BP Diastolic Sitting 64 mmHg Respiratory Rate 14 /min Body Temperature 97.3 F BMI (Body Mass Index) 17.6 kg/m2 07/21/2018 3:14pm Height 67 inches 5'7" Weight 110.12 lb Heart Rate 84 /min BP Systolic Sitting 124 mmHg BP Diastolic Sitting 58 mmHg Respiratory Rate 14 /min Body Temperature 97.6 F BMI (Body Mass Index) 17.2 kg/m2 07/07/2018 3:07pm Height 67 inches 5'7" Weight 112.12 lb Heart Rate 92 /min BP Systolic Sitting 98 mmHg BP Diastolic Sitting 60 mmHg Respiratory Rate 14 /min Body Temperature 96.9 F BMI (Body Mass Index) 17.6 kg/m2 06/07/2018 11:34am Height 67 inches 5'7" Weight 118.00 lb Heart Rate 108 /min BP Systolic 110 mmHg BP Diastolic 66 mmHg Respiratory Rate 20 /min BMI (Body Mass Index) 18.5 kg/m2 04/19/2018 10:41am Height 67 inches 5'7" Weight 130.00 lb Heart Rate 84 /min BP Systolic 112 mmHg BP Diastolic 78 mmHg Respiratory Rate 16 /min BMI (Body Mass Index) 20.4 kg/m2 09/14/2016 3:19pm Height 67 inches 5'7" Heart Rate 83 /min BP Systolic 151 mmHg BP Diastolic 72 mmHg Pain Level 1 06/05/2016 2:05pm Height 67 inches 5'7" Weight 130.00 lb Pain Level 0 BMI (Body Mass Index) 20.4 kg/m2 05/01/2016 2:08pm Height 67 inches 5'7" Weight 130.00 lb Pain Level 1 BMI (Body Mass Index) 20.4 kg/m2 04/06/2016 1:19pm Height 67 inches 5'7" Weight 130.00 lb Pain Level 2 BMI (Body Mass Index) 20.4 kg/m2 03/20/2016 1:57pm Height 67 inches 5'7" Weight 130.00 lb Pain Level 3 BMI (Body Mass Index) 20.4 kg/m2 Results Test Date Facility Test Result H/L Range Note Laboratory test 12/01/2018 [facility] Poc Activated 172 seconds [address] [address] [phone] CBC Auto Diff 12/01/2018 [facility] White Blood 9.1 10^3/uL N 3.5-10.[address] [place] [address] [phone] Red Blood Count 3.96 10^6/uL Low 4.00-5.40 Hemoglobin 12.6 g/dL N 12.0-16.0 Hematocrit 37 % N 35-47 Mean Corpuscular Volume 94 fL N 80-97 Mean Corpuscular Hemoglobin 32 pg High 27-31 Mean Corpuscular HGB Conc 34 g/dL N 31-36 Red Cell Distribution Width 16 % High 10.5-15 Platelet Count 268 10^3/uL N 150-450 Mean Platelet Volume 7.9 fL N 7.4-10.4 Abs Neutrophils 6.2 10^3/uL N 1.5-7.7 Abs Lymphocytes 2.1 10^3/uL N 1.0-4.8 Abs Monocytes 0.4 10^3/uL N 0-0.8 Abs Eosinophils 0.3 10^3/uL N 0-0.6 Abs Basophils 0.1 10^3/uL N 0-0.2 Abs Nucleated RBC 0 10^3/uL Granulocyte % 67.9 % Lymphocyte % 22.9 % Monocyte % 4.7 % Eosinophil % 3.5 % Basophil % 1.0 % Nucleated Red Blood Cells % 0.1 Inr/Protime 12/01/2018 [facility] Inr 0.90 N 0.77-1.[address] [place] [address] [phone] Laboratory test 12/01/2018 [facility] Partial 26.1 seconds N 26.0-36.[address] [place] [address] PTT [phone] Basic Metabolic 12/01/2018 [facility] Sodium 135 mmol/L N 135- [address] [place] [address] [phone] Chloride 104 mmol/L N 101-111 Co2 Carbon Dioxide 26 mmol/L N 22-32 Glucose 129 mg/dL High 70-100 Blood Urea Nitrogen 41 mg/dL High 6-24 Creatinine 1.19 mg/dL High 0.51-0.95 BUN/Creatinine Ratio 34.5 High 8-20 Calcium 9.7 mg/dL N 8.6-10.3 Egfr Non- 44.6 >60 Egfr 54.0 >60 2 Potassium 5.1 mmol/L High 3.5-5.0 Anion Gap 5 mmol/L N 2-11 CBC Auto Diff 10/27/2018 [facility] White Blood 9.8 10^3/uL N 3.5-10.[address] [place] [address] [phone] Red Blood Count 4.00 10^6/uL N 4.00-5.40 Hemoglobin 12.8 g/dL N 12.0-16.0 Hematocrit 38 % N 35-47 Mean Corpuscular Volume 95 fL N 80-97 Mean Corpuscular Hemoglobin 32 pg High 27-31 Mean Corpuscular HGB Conc 34 g/dL N 31-36 Red Cell Distribution Width 17 % High 10.5-15 Platelet Count 252 10^3/uL N 150-450 Mean Platelet Volume 7.9 fL N 7.4-10.4 Abs Neutrophils 7.1 10^3/uL N 1.5-7.7 Abs Lymphocytes 2.0 10^3/uL N 1.0-4.8 Abs Monocytes 0.5 10^3/uL N 0-0.8 Abs Eosinophils 0.1 10^3/uL N 0-0.6 Abs Basophils 0.1 10^3/uL N 0-0.2 Abs Nucleated RBC 0 10^3/uL Granulocyte % 72.1 % Lymphocyte % 20.5 % Monocyte % 5.1 % Eosinophil % 1.4 % Basophil % 0.9 % Nucleated Red Blood Cells % 0 Inr/Protime 10/27/2018 [facility] Inr 0.86 N 0.77-1.[address] [place] [address] [phone] Laboratory test 10/27/2018 [facility] Partial 26.3 seconds N 26.0-36.[address] [place] [address] PTT [phone] Comp Metabolic 10/27/2018 [facility] Sodium 138 mmol/L N 135- [address] [place] [address] [phone] Potassium 4.9 mmol/L N 3.5-5.0 Chloride 103 mmol/L N 101-111 Co2 Carbon Dioxide 25 mmol/L N 22-32 Anion Gap 10 mmol/L N 2-11 Glucose 124 mg/dL High 70-100 Blood Urea Nitrogen 34 mg/dL High 6-24 Creatinine 1.19 mg/dL High 0.51-0.95 BUN/Creatinine Ratio 28.6 High 8-20 Calcium 9.9 mg/dL N 8.6-10.3 Total Protein 7.2 g/dL N 6.4-8.9 Albumin 4.1 g/dL N 3.2-5.2 Globulin 3.1 g/dL N 2-4 Albumin/Globulin Ratio 1.3 N 1-3 Total Bilirubin 0.20 mg/dL N 0.2-1.0 Alkaline Phosphatase 109 U/L High 34-104 Alt 31 U/L N 7-52 Ast 19 U/L N 13-39 Egfr Non- 44.6 >60 Egfr 54.0 >60 3 Basic Metabolic Panel 10/04/2018 [facility] Sodium 138 mmol/L N 135-[address] [place] [address] [phone] Chloride 106 mmol/L N 101-111 Co2 Carbon Dioxide 25 mmol/L N 22-32 Glucose 94 mg/dL N 70-100 Blood Urea Nitrogen 31 mg/dL High 6-24 Creatinine 1.26 mg/dL High 0.51-0.95 BUN/Creatinine Ratio 24.6 High 8-20 Calcium 9.7 mg/dL N 8.6-10.3 Egfr Non- 41.7 >60 Egfr 50.5 >60 4 Potassium 5.5 mmol/L High 3.5-5.0 Anion Gap 7 mmol/L N 2-11 Laboratory test 08/16/2018 [facility] Creatine 78 U/L N 10- [address] Kinase(CK) [place] [address] [phone] C Reactive Protein 13.13 mg/L High <8.01 Comp Metabolic Panel 08/16/2018 [facility] Sodium 136 mmol/L N 135-[address] [place] [address] [phone] Potassium 4.5 mmol/L N 3.5-5.0 Chloride 103 mmol/L N 101-111 Co2 Carbon Dioxide 26 mmol/L N 22-32 Anion Gap 7 mmol/L N 2-11 Glucose 109 mg/dL High 70-100 Blood Urea Nitrogen 30 mg/dL High 6-24 Creatinine 1.28 mg/dL High 0.51-0.95 BUN/Creatinine Ratio 23.4 High 8-20 Calcium 9.3 mg/dL N 8.6-10.3 Total Protein 6.9 g/dL N 6.4-8.9 Albumin 3.5 g/dL N 3.2-5.2 Globulin 3.4 g/dL N 2-4 Albumin/Globulin Ratio 1.0 N 1-3 Total Bilirubin 0.30 mg/dL N 0.2-1.0 Alkaline Phosphatase 86 U/L N 34-104 Alt 12 U/L N 7-52 Ast 16 U/L N 13-39 Egfr Non- 41.1 >60 Egfr 49.7 >60 5 CBC Auto 08/16/2018 [facility] White Blood 11.1 10^3/uL High 3.5-10.[address] [place] [address] [phone] Red Blood Count 3.49 10^6/uL Low 4.00-5.40 Hemoglobin 10.8 g/dL Low 12.0-16.0 Hematocrit 32 % Low 35-47 Mean Corpuscular Volume 91 fL N 80-97 Mean Corpuscular Hemoglobin 31 pg N 27-31 Mean Corpuscular HGB Conc 34 g/dL N 31-36 Red Cell Distribution Width 16 % High 10.5-15 Platelet Count 375 10^3/uL N 150-450 Mean Platelet Volume 7.3 fL Low 7.4-10.4 Abs Neutrophils 8.2 10^3/uL High 1.5-7.7 Abs Lymphocytes 1.9 10^3/uL N 1.0-4.8 Abs Monocytes 0.7 10^3/uL N 0-0.8 Abs Eosinophils 0.2 10^3/uL N 0-0.6 Abs Basophils 0.1 10^3/uL N 0-0.2 Abs Nucleated RBC 0 10^3/uL Granulocyte % 73.5 % N 38-83 Lymphocyte % 17.3 % Low 25-47 Monocyte % 6.0 % N 0-7 Eosinophil % 2.2 % N 0-6 Basophil % 1.0 % N 0-2 Nucleated Red Blood Cells % 0 CBC Auto 08/09/2018 [facility] White Blood 11.5 10^3/uL High 3.5-10.[address] [place] [address] [phone] Red Blood Count 3.51 10^6/uL Low 4.00-5.40 Hemoglobin 10.9 g/dL Low 12.0-16.0 Hematocrit 32 % Low 35-47 Mean Corpuscular Volume 91 fL N 80-97 Mean Corpuscular Hemoglobin 31 pg N 27-31 Mean Corpuscular HGB Conc 34 g/dL N 31-36 Red Cell Distribution Width 15 % N 10.5-15 Platelet Count 442 10^3/uL N 150-450 Mean Platelet Volume 6.7 fL Low 7.4-10.4 Abs Neutrophils 8.4 10^3/uL High 1.5-7.7 Abs Lymphocytes 2.1 10^3/uL N 1.0-4.8 Abs Monocytes 0.5 10^3/uL N 0-0.8 Abs Eosinophils 0.4 10^3/uL N 0-0.6 Abs Basophils 0.2 10^3/uL N 0-0.2 Abs Nucleated RBC 0 10^3/uL Granulocyte % 72.9 % N 38-83 Lymphocyte % 18.1 % Low 25-47 Monocyte % 4.2 % N 0-7 Eosinophil % 3.4 % N 0-6 Basophil % 1.4 % N 0-2 Nucleated Red Blood Cells % 0 Comp Metabolic Panel 08/09/2018 [facility] Sodium 139 mmol/L N 135-[address] [place] [address] [phone] Potassium 4.2 mmol/L N 3.5-5.0 Chloride 101 mmol/L N 101-111 Co2 Carbon Dioxide 29 mmol/L N 22-32 Anion Gap 9 mmol/L N 2-11 Glucose 111 mg/dL High 70-100 Blood Urea Nitrogen 21 mg/dL N 6-24 Creatinine 1.21 mg/dL High 0.51-0.95 BUN/Creatinine Ratio 17.4 N 8-20 Calcium 9.2 mg/dL N 8.6-10.3 Total Protein 6.8 g/dL N 6.4-8.9 Albumin 3.3 g/dL N 3.2-5.2 Globulin 3.5 g/dL N 2-4 Albumin/Globulin Ratio 0.9 Low 1-3 Total Bilirubin 0.20 mg/dL N 0.2-1.0 Alkaline Phosphatase 89 U/L N 34-104 Alt 10 U/L N 7-52 Ast 15 U/L N 13-39 Egfr Non- 43.9 >60 Egfr 53.1 >60 6 Laboratory test 08/09/2018 [facility] Creatine 39 U/L N 10- [address] Kinase(CK) [place] [address] [phone] C Reactive Protein 31.94 mg/L High <8.01 CBC Auto Diff 08/02/2018 [facility] White Blood 9.9 10^3/uL N 3.5-10.[address] [place] [address] [phone] Red Blood Count 3.25 10^6/uL Low 4.00-5.40 Hemoglobin 10.1 g/dL Low 12.0-16.0 Hematocrit 30 % Low 35-47 Mean Corpuscular Volume 91 fL N 80-97 Mean Corpuscular Hemoglobin 31 pg N 27-31 Mean Corpuscular HGB Conc 34 g/dL N 31-36 Red Cell Distribution Width 14 % N 10.5-15 Platelet Count 286 10^3/uL N 150-450 Mean Platelet Volume 7.7 fL N 7.4-10.4 Abs Neutrophils 7.6 10^3/uL N 1.5-7.7 Abs Lymphocytes 1.4 10^3/uL N 1.0-4.8 Abs Monocytes 0.5 10^3/uL N 0-0.8 Abs Eosinophils 0.3 10^3/uL N 0-0.6 Abs Basophils 0.1 10^3/uL N 0-0.2 Abs Nucleated RBC 0 10^3/uL Granulocyte % 77.0 % N 38-83 Lymphocyte % 14.6 % Low 25-47 Monocyte % 4.6 % N 0-7 Eosinophil % 3.2 % N 0-6 Basophil % 0.6 % N 0-2 Nucleated Red Blood Cells % 0 Comp Metabolic Panel 08/02/2018 [facility] Sodium 137 mmol/L N 135-[address] [place] [address] [phone] Potassium 4.1 mmol/L N 3.5-5.0 Chloride 102 mmol/L N 101-111 Co2 Carbon Dioxide 26 mmol/L N 22-32 Anion Gap 9 mmol/L N 2-11 Glucose 135 mg/dL High 70-100 Blood Urea Nitrogen 23 mg/dL N 6-24 Creatinine 1.27 mg/dL High 0.51-0.95 BUN/Creatinine Ratio 18.1 N 8-20 Calcium 8.9 mg/dL N 8.6-10.3 Total Protein 6.5 g/dL N 6.4-8.9 Albumin 3.2 g/dL N 3.2-5.2 Globulin 3.3 g/dL N 2-4 Albumin/Globulin Ratio 1.0 N 1-3 Total Bilirubin 0.40 mg/dL N 0.2-1.0 Alkaline Phosphatase 82 U/L N 34-104 Alt 11 U/L N 7-52 Ast 15 U/L N 13-39 Egfr Non- 41.5 >60 Egfr 50.2 >60 7 Laboratory test 08/02/2018 [facility] Creatine 123 U/L N 10- [address] Kinase(CK) [place] [address] [phone] C Reactive Protein 151.75 mg/L High <8.01 Laboratory test 07/27/2018 [facility] Creatine 196 U/L N 10- [address] Kinase(CK) [place] [address] [phone] Comp Metabolic 07/26/2018 [facility] Sodium 137 N 135-[address] mmol/[place] [address] [phone] Potassium 4.4 mmol/L N 3.5-5.0 Chloride 103 mmol/L N 101-111 Co2 Carbon Dioxide 23 mmol/L N 22-32 Anion Gap 11 mmol/L N 2-11 Glucose 124 mg/dL High 70-100 Blood Urea Nitrogen 20 mg/dL N 6-24 Creatinine 1.32 mg/dL High 0.51-0.95 BUN/Creatinine Ratio 15.2 N 8-20 Calcium 8.9 mg/dL N 8.6-10.3 Total Protein 6.3 g/dL Low 6.4-8.9 Albumin 3.4 g/dL N 3.2-5.2 Globulin 2.9 g/dL N 2-4 Albumin/Globulin Ratio 1.2 N 1-3 Total Bilirubin 0.30 mg/dL N 0.2-1.0 Alkaline Phosphatase 95 U/L N 34-104 Alt 23 U/L N 7-52 Ast 24 U/L N 13-39 Egfr Non- 39.7 >60 Egfr 48.0 >60 8 Laboratory test 07/26/2018 [facility] Creatine 236 U/L High 10 -[address] Kinase(CK) [place] [address] [phone] C Reactive Protein 6.48 mg/L N <8.01 CBC Auto Diff 07/26/2018 [facility] White Blood 9.4 10^3/uL N 3.5-10.[address] [place] [address] [phone] Red Blood Count 3.66 10^6/uL Low 4.00-5.40 Hemoglobin 11.4 g/dL Low 12.0-16.0 Hematocrit 34 % Low 35-47 Mean Corpuscular Volume 93 fL N 80-97 Mean Corpuscular Hemoglobin 31 pg N 27-31 Mean Corpuscular HGB Conc 34 g/dL N 31-36 Red Cell Distribution Width 14 % N 10.5-15 Platelet Count 324 10^3/uL N 150-450 Mean Platelet Volume 7.4 um3 N 7.4-10.4 Abs Neutrophils 6.7 10^3/uL N 1.5-7.7 Abs Lymphocytes 2.0 10^3/uL N 1.0-4.8 Abs Monocytes 0.5 10^3/uL N 0-0.8 Abs Eosinophils 0.1 10^3/uL N 0-0.6 Abs Basophils 0.1 10^3/uL N 0-0.2 Abs Nucleated RBC 0 10^3/uL Granulocyte % 71.8 % N 38-83 Lymphocyte % 21.0 % Low 25-47 Monocyte % 4.9 % N 0-7 Eosinophil % 0.9 % N 0-6 Basophil % 1.4 % N 0-2 Nucleated Red Blood Cells % 0 CBC Auto Diff 07/19/2018 [facility] White Blood 7.9 10^3/uL N 3.5-10.[address] [place] [address] [phone] Red Blood Count 3.69 10^6/uL Low 4.00-5.40 Hemoglobin 11.4 g/dL Low 12.0-16.0 Hematocrit 34 % Low 35-47 Mean Corpuscular Volume 93 fL N 80-97 Mean Corpuscular Hemoglobin 31 pg N 27-31 Mean Corpuscular HGB Conc 34 g/dL N 31-36 Red Cell Distribution Width 14 % N 10.5-15 Platelet Count 205 10^3/uL N 150-450 Mean Platelet Volume 9.9 um3 N 7.4-10.4 Abs Neutrophils 4.9 10^3/uL N 1.5-7.7 Abs Lymphocytes 2.2 10^3/uL N 1.0-4.8 Abs Monocytes 0.4 10^3/uL N 0-0.8 Abs Eosinophils 0.2 10^3/uL N 0-0.6 Abs Basophils 0.1 10^3/uL N 0-0.2 Abs Nucleated RBC 0 10^3/uL Granulocyte % 62.7 % N 38-83 Lymphocyte % 28.1 % N 25-47 Monocyte % 5.6 % N 0-7 Eosinophil % 2.4 % N 0-6 Basophil % 1.2 % N 0-2 Nucleated Red Blood Cells % 0 Comp Metabolic Panel 07/19/2018 [facility] Sodium 138 mmol/L N 135-[address] [place] [address] [phone] Potassium 4.3 mmol/L N 3.5-5.0 Chloride 104 mmol/L N 101-111 Co2 Carbon Dioxide 23 mmol/L N 22-32 Anion Gap 11 mmol/L N 2-11 Glucose 122 mg/dL High 70-100 Blood Urea Nitrogen 31 mg/dL High 6-24 Creatinine 1.30 mg/dL High 0.51-0.95 BUN/Creatinine Ratio 23.8 High 8-20 Calcium 9.0 mg/dL N 8.6-10.3 Total Protein 6.4 g/dL N 6.4-8.9 Albumin 3.2 g/dL N 3.2-5.2 Globulin 3.2 g/dL N 2-4 Albumin/Globulin Ratio 1.0 N 1-3 Total Bilirubin 0.30 mg/dL N 0.2-1.0 Alkaline Phosphatase 100 U/L N 34-104 Alt 36 U/L N 7-52 Ast 27 U/L N 13-39 Egfr Non- 40.4 >60 Egfr 48.9 >60 9 Laboratory test 07/19/2018 [facility] Creatine 29 U/L N 10- [address] Kinase(CK) [place] [address] [phone] C Reactive Protein 13.92 mg/L High <8.01 Laboratory test 07/11/2018 [facility] C Reactive 4.66 mg/L N < 8.[address] [place] [address] [phone] Creatine Kinase(CK) 17 U/L N 10-223 Comp Metabolic Panel 07/11/2018 [facility] Sodium 136 mmol/L N 135-[address] [place] [address] [phone] Potassium 4.4 mmol/L N 3.5-5.0 Chloride 104 mmol/L N 101-111 Co2 Carbon Dioxide 19 mmol/L Low 22-32 Anion Gap 13 mmol/L High 2-11 Glucose 133 mg/dL High 70-100 Blood Urea Nitrogen 77 mg/dL High 6-24 Creatinine 1.87 mg/dL High 0.51-0.95 BUN/Creatinine Ratio 41.2 High 8-20 Calcium 8.9 mg/dL N 8.6-10.3 Total Protein 5.9 g/dL Low 6.4-8.9 Albumin 3.1 g/dL Low 3.2-5.2 Globulin 2.8 g/dL N 2-4 Albumin/Globulin Ratio 1.1 N 1-3 Total Bilirubin 0.50 mg/dL N 0.2-1.0 Alkaline Phosphatase 98 U/L N 34-104 Alt 42 U/L N 7-52 Ast 29 U/L N 13-39 Egfr Non- 26.5 >60 Egfr 32.1 >60 10 CBC Auto Diff 07/11/2018 [facility] White Blood 8.4 10^3/uL N 3.5-10.[address] [place] [address] [phone] Red Blood Count 4.03 10^6/uL N 4.00-5.40 Hemoglobin 12.8 g/dL N 12.0-16.0 Hematocrit 38 % N 35-47 Mean Corpuscular Volume 93 fL N 80-97 Mean Corpuscular Hemoglobin 32 pg High 27-31 Mean Corpuscular HGB Conc 34 g/dL N 31-36 Red Cell Distribution Width 14 % N 10.5-15 Platelet Count 108 10^3/uL Low 150-450 Mean Platelet Volume 10.7 um3 High 7.4-10.4 Abs Neutrophils 5.8 10^3/uL N 1.5-7.7 Abs Lymphocytes 2.1 10^3/uL N 1.0-4.8 Abs Monocytes 0.3 10^3/uL N 0-0.8 Abs Eosinophils 0.1 10^3/uL N 0-0.6 Abs Basophils 0.1 10^3/uL N 0-0.2 Abs Nucleated RBC 0 10^3/uL Granulocyte % 68.6 % N 38-83 Lymphocyte % 25.3 % N 25-47 Monocyte % 4.0 % N 0-7 Eosinophil % 1.1 % N 0-6 Basophil % 1.0 % N 0-2 Nucleated Red Blood Cells % 0.1 Pthi 06/07/2018 [facility] Calcium (PTH Intact) 9.7 mg/dL N 8.6-10.[address] [place] [address] [phone] PTH Intact 3.0 pmol/L N 1.3-9.3 Laboratory test 06/07/2018 [facility] Calcium 4.86 mg/dL N 4.65-5.[address] [place] [address] [phone] Vitamin B12 And 04/19/2018 [facility] Vitamin B12 75 pg/mL Low 180-914 11 Folate Serum [address] [place] [address] [phone] Folic Acid (Folate) 12.00 ng/mL >3.99 12 Laboratory test 04/19/2018 [facility] TSH (Thyroid 2.68 mcIU/mL N 0.34-5.[address] Stim [place]) [place] [address] [phone] Free T4 (Free Thyroxine) 0.83 ng/dL N 0.61-1.12 14 1 Network Designer: [id number] Reference Range: 74-125 seconds 2 Because ethnic data is not always readily available, this report includes an eGFR for both -Americans and non- Americans. The National Kidney Disease Education Program (NKDEP) does not endorse the use of the MDRD equation for patients that are not between the ages of 18 and 70, are , have extremes of body size, muscle mass, or nutritional status, or are non- or non-. According to the National Kid[employer] Foundation, irrespective of diagnosis, the stage of the disease is based on the level of kidney function: Stage Description GFR(mL/min/1.73 m(2)) 1 Kidney damage with normal or decreased GFR 90 2 Kidney damage with mild decrease in GFR 60-89 3 Moderate decrease in GFR 30-59 4 Severe decrease in GFR 15-29 5 Kidney failure <15 (or dialysis) 3 Because ethnic data is not always readily available, this report includes an eGFR for both -Americans and non- Americans. The National Kidney Disease Education Program (NKDEP) does not endorse the use of the MDRD equation for patients that are not between the ages of 18 and 70, are , have extremes of body size, muscle mass, or nutritional status, or are non- or non-. According to the National Kidney Foundation, irrespective of diagnosis, the stage of the disease is based on the level of kidney function: Stage Description GFR(mL/min/1.73 m(2)) 1 Kidney damage with normal or decreased GFR 90 2 Kidney damage with mild decrease in GFR 60-89 3 Moderate decrease in GFR 30-59 4 Severe decrease in GFR 15-29 5 Kidney failure <15 (or dialysis) 4 Because ethnic data is not always readily available, this report includes an eGFR for both -Americans and non- Americans. The National Kidney Disease Education Program (NKDEP) does not endorse the use of the MDRD equation for patients that are not between the ages of 18 and 70, are , have extremes of body size, muscle mass, or nutritional status, or are non- or non-. According to the National Kidney Foundation, irrespective of diagnosis, the stage of the disease is based on the level of kidney function: Stage Description GFR(mL/min/1.73 m(2)) 1 Kidney damage with normal or decreased GFR 90 2 Kidney damage with mild decrease in GFR 60-89 3 Moderate decrease in GFR 30-59 4 Severe decrease in GFR 15-29 5 Kidney failure <15 (or dialysis) 5 Because ethnic data is not always readily available, this report includes an eGFR for both -Americans and non- Americans. The National Kidney Disease Education Program (NKDEP) does not endorse the use of the MDRD equation for patients that are not between the ages of 18 and 70, are , have extremes of body size, muscle mass, or nutritional status, or are non- or non-. According to the National Kidney Foundation, irrespective of diagnosis, the stage of the disease is based on the level of kidney function: Stage Description GFR(mL/min/1.73 m(2)) 1 Kidney damage with normal or decreased GFR 90 2 Kidney damage with mild decrease in GFR 60-89 3 Moderate decrease in GFR 30-59 4 Severe decrease in GFR 15-29 5 Kidney failure <15 (or dialysis) 6 Because ethnic data is not always readily available, this report includes an eGFR for both -Americans and non- Americans. The National Kidney Disease Education Program (NKDEP) does not endorse the use of the MDRD equation for patients that are not between the ages of 18 and 70, are , have extremes of body size, muscle mass, or nutritional status, or are non- or non-. According to the National Kidney Foundation, irrespective of diagnosis, the stage of the disease is based on the level of kidney function: Stage Description GFR(mL/min/1.73 m(2)) 1 Kidney damage with normal or decreased GFR 90 2 Kidney damage with mild decrease in GFR 60-89 3 Moderate decrease in GFR 30-59 4 Severe decrease in GFR 15-29 5 Kidney failure <15 (or dialysis) 7 Because ethnic data is not always readily available, this report includes an eGFR for both -Americans and non- Americans. The National Kidney Disease Education Program (NKDEP) does not endorse the use of the MDRD equation for patients that are not between the ages of 18 and 70, are , have extremes of body size, muscle mass, or nutritional status, or are non- or non-. According to the National Kidney Foundation, irrespective of diagnosis, the stage of the disease is based on the level of kidney function: Stage Description GFR(mL/min/1.73 m(2)) 1 Kidney damage with normal or decreased GFR 90 2 Kidney damage with mild decrease in GFR 60-89 3 Moderate decrease in GFR 30-59 4 Severe decrease in GFR 15-29 5 Kidney failure <15 (or dialysis) 8 Because ethnic data is not always readily available, this report includes an eGFR for both -Americans and non- Americans. The National Kidney Disease Education Program (NKDEP) does not endorse the use of the MDRD equation for patients that are not between the ages of 18 and 70, are , have extremes of body size, muscle mass, or nutritional status, or are non- or non-. According to the National Kidney Foundation, irrespective of diagnosis, the stage of the disease is based on the level of kidney function: Stage Description GFR(mL/min/1.73 m(2)) 1 Kidney damage with normal or decreased GFR 90 2 Kidney damage with mild decrease in GFR 60-89 3 Moderate decrease in GFR 30-59 4 Severe decrease in GFR 15-29 5 Kidney failure <15 (or dialysis) 9 Because ethnic data is not always readily available, this report includes an eGFR for both -Americans and non- Americans. The National Kidney Disease Education Program (NKDEP) does not endorse the use of the MDRD equation for patients that are not between the ages of 18 and 70, are , have extremes of body size, muscle mass, or nutritional status, or are non- or non-. According to the National Kidney Foundation, irrespective of diagnosis, the stage of the disease is based on the level of kidney function: Stage Description GFR(mL/min/1.73 m(2)) 1 Kidney damage with normal or decreased GFR 90 2 Kidney damage with mild decrease in GFR 60-89 3 Moderate decrease in GFR 30-59 4 Severe decrease in GFR 15-29 5 Kidney failure <15 (or dialysis) 10 Because ethnic data is not always readily available, this report includes an eGFR for both -Americans and non- Americans. The National Kidney Disease Education Program (NKDEP) does not endorse the use of the MDRD equation for patients that are not between the ages of 18 and 70, are , have extremes of body size, muscle mass, or nutritional status, or are non- or non-. According to the National Kidney Foundation, irrespective of diagnosis, the stage of the disease is based on the level of kidney function: Stage Description GFR(mL/min/1.73 m(2)) 1 Kidney damage with normal or decreased GFR 90 2 Kidney damage with mild decrease in GFR 60-89 3 Moderate decrease in GFR 30-59 4 Severe decrease in GFR 15-29 5 Kidney failure <15 (or dialysis) 11 Normal Range 180 to 914 Indeterminate Range 145 to 180 Deficient Range <145 12 Copy Result to: BERHANE MOORE ([id number]) 13 Copy Result to: BERHANE MOORE ([id number]) 14 Copy Result to: BERHANE MOORE ([id number]) Procedures Date Code Description Status 01/24/2019 90362 Removal Devitalization Tissue Wound Less Than Equal 20 Completed Square CM 01/10/2019 49571 Removal Devitalization Tissue Wound Less Than Equal 20 Completed Square CM 12/27/2018 08585 Removal Devitalization Tissue Wound Less Than Equal 20 Completed Square CM 12/01/2018 10466 Moderate Sedation Services; Same Phys Intl 15 Mins; PT >=5 Completed Years 12/01/2018 01914 Ultrasound Guidance For Vascular Access Completed 12/01/2018 10999 Hswue-Impsbjiyo-Rzypgmvncu Completed 12/01/2018 46990 Revascularization,Endovascular,Transluminal Angioplasty Completed 10/27/2018 44920 Moderate Sedation Services; Same Phys Intl 15 Mins; PT >=5 Completed Years 10/27/2018 74609 Ultrasound Guidance For Vascular Access Completed 10/27/2018 48149 Angio Extremity, Bilateral Completed 10/27/2018 03127 Catheter Placement Arterial System Init 3RD Order Completed Abdom/Pelv/Low 09/06/2018 74924 Removal Devitalization Tissue Wound Less Than Equal 20 Completed Square CM 08/02/2018 38340 Removal Devitalization Tissue Wound Less Than Equal 20 Completed Square CM 07/26/2018 48683 Removal Devitalization Tissue Wound Less Than Equal 20 Completed Square CM 07/08/2018 82194 Hyperbaric Oxygen Therapy By Physician Completed 07/07/2018 84847 Hyperbaric Oxygen Therapy By Physician Completed 07/07/2018 21528 Removal Devitalization Tissue Wound Less Than Equal 20 Completed Square CM 07/06/2018 36577 Hyperbaric Oxygen Therapy By Physician Completed 07/05/2018 62572 Hyperbaric Oxygen Therapy By Physician Completed 06/30/2018 30916 Removal Devitalization Tissue Wound Less Than Equal 20 Completed Square CM 06/23/2018 97012 Removal Devitalization Tissue Wound Less Than Equal 20 Completed Square CM 06/16/2018 81843 Removal Devitalization Tissue Wound Less Than Equal 20 Completed Square CM 01/19/2016 45415 Open TX Of Femoral FX,Promimal End,Neck Internal Fixation Completed 01/19/2016 68931 Open TX Of Femoral FX,Promimal End,Neck Internal Fixation Completed Encounters Type Date Location Provider Dx Diagnosis Office Visit 02/07/2019 [facility] Jayme Marin, L97.528 Non- prs chronic 1:00p AT [facility] Janet ulcer oth prt left foot with oth severity E11.621 Type 2 diabetes mellitus with foot ulcer B95.62 Methicillin resis staph infct causing diseases classd elswhr I10 Essential (primary) hypertension R09.89 Oth symptoms and signs involving the circ and resp systems Office Visit 01/11/2019 11:00a [facility] Abdirizak York I70.262 [facility] Markus Maddox M.D. arteries of extremities w gangrene, left leg Office Visit 12/13/2018 12:45p Wound Care Jayme Stone L97.512 Non-prs chronic Center AT [facility] Janet Marin ulcer oth prt right foot w fat layer exposed E11.621 Type 2 diabetes mellitus with foot ulcer B95.62 Methicillin resis staph infct causing diseases classd elswhr R09.89 Oth symptoms and signs involving the circ and resp systems M86.672 Other chronic osteomyelitis, left ankle and foot Office Visit 11/21/2018 1:45p [facility] Will Ace, G2Js [facility] Janet disease G25.0 Essential tremor Office Visit 11/15/2018 2:00p Wound Care Jayme Stone L97.513 Non-prs chronic Center AT [facility] Janet Marin ulcer oth prt right foot w necros muscle E11.621 Type 2 diabetes mellitus with foot ulcer M86.672 Other chronic osteomyelitis, left ankle and foot B95.62 Methicillin resis staph infct causing diseases classd elswhr I10 Essential (primary) hypertension Office Visit 10/25/2018 1:30p Wound Care Jayme Stone E11.621 Type 2 diabetes Center AT [facility] Janet Marin mellitus with foot ulcer B95.62 Methicillin resis staph infct causing diseases classd elswhr I10 Essential (primary) hypertension Office Visit 10/24/2018 2:00p [facility] Kate Amaya I73.9 Peripheral Infectious Janet Hyde vascular disease, Diseases unspecified E10.51 Type 1 diabetes w diabetic peripheral 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 Z71.6 Tobacco abuse counseling Office Visit 10/04/2018 1:30p Wound Care Jayme Stone L97.525 [facility]s [facility] Janet Marin oth prt l foot with msl invl w/o evd of necr E11.621 Type 2 diabetes mellitus with foot ulcer B95.62 Methicillin resis staph infct causing diseases classd elswhr I10 Essential (primary) hypertension M86.672 Other chronic osteomyelitis, left ankle and foot Office Visit 09/13/2018 2:15p Wound Care Jayme Stone L97.525 Non-prs [facility] Janet Marin oth prt l foot with msl invl w/o evd of necr E11.621 Type 2 diabetes mellitus with foot ulcer B95.62 Methicillin resis staph infct causing diseases classd elswhr I10 Essential (primary) hypertension M86.672 Other chronic osteomyelitis, left ankle and foot Office Visit 09/07/2018 11:30a [facility] Abdirizak York I70.262 [facility] Markus Maddox M.D. arteries of extremities w gangrene, left leg Office Visit 08/23/2018 2:00p Wound Care Jayme Stone E11.9 Type 2 diabetes Center AT [facility] Janet Marin mellitus without complications B95.62 Methicillin resis staph infct causing diseases classd elswhr I10 Essential (primary) hypertension Office Visit 08/22/2018 3:00p [facility] Geremias Amaya B95.62 Methicillin resis For Infectious Janet Hyde staph infct Diseases causing diseases classd elswhr M86.672 Other chronic osteomyelitis, left ankle and foot Z71.6 Tobacco abuse counseling I73.9 Peripheral vascular disease, unspecified L97.521 Non-prs chronic ulcer oth prt l foot limited to brkdwn skin E10.69 Type 1 diabetes mellitus with other specified complication E10.621 Type 1 diabetes mellitus with foot ulcer Office Visit 08/19/2018 3:00p [facility] Will Ace, G25.0 Essential Services Of Markus Gonzales tremor G20 Parkinson's disease Office Visit 08/09/2018 2:30p Wound Care Jayme Stone E11.621 Type 2 diabetes Center AT [facility] Janet Marin mellitus with foot ulcer L97.521 Non-prs chronic ulcer oth prt l foot limited to brkdwn skin B95.62 Methicillin resis staph infct causing diseases classd elswhr M86.672 Other chronic osteomyelitis, left ankle and foot I10 Essential (primary) hypertension Office Visit 08/04/2018 3:20p [facility] Kate Amaya I73.9 Peripheral Infectious Janet Hyde vascular disease, Diseases unspecified M86.672 Other chronic osteomyelitis, left ankle and foot R79.82 Elevated C-reactive protein (CRP) E10.69 Type 1 diabetes mellitus with other specified complication E10.51 Type 1 diabetes w diabetic peripheral 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 Office Visit 07/13/2018 11:30a [facility] Genaro Ray E11.621 Type 2 AT [facility] MD Shayy diabetes mellitus with foot ulcer Office Visit 07/07/2018 3:20p [facility] Geremias Amaya M86.672 Other chronic Infectious Janet Hyde osteomyelitis, Diseases left ankle and foot B95.62 Methicillin resis staph infct causing diseases classd elsr I73.9 Peripheral vascular disease, unspecified E10.69 Type 1 diabetes mellitus with other specified complication E10.621 Type 1 diabetes mellitus with foot ulcer L97.529 Non-pressure chronic ulcer oth prt left foot w unsp severity Office Visit 06/07/2018 11:30a [facility] Heaven Hillman [facility] MGiftyDGifty disease G25.0 Essential tremor R53.82 Chronic fatigue, unspecified Office Visit 04/19/2018 10:30a [facility] Heaven Hillman [facility] MGiftyDGifty disease G25.0 Essential tremor R53.82 Chronic fatigue, unspecified Office Visit 09/14/2016 2:45p [facility] Kasandra Pritchard Z96.642 Presence of left Services Of Janet artificial hip C.M.A. joint T84.021D Dislocation of internal left hip prosthesis, subs encntr Office Visit 06/05/2016 2:00p [facility]opedic Kasandra T84.021D Dislocation of Services Of Janet Pritchard internal left hip C.M.A. prosthesis, subs encntr Z96.642 Presence of left artificial hip joint Office Visit 05/01/2016 2:00p Orthopedic Kasandra T84.021D Dislocation of Services Of Janet Pritchard internal left hip C.M.A. prosthesis, subs encntr Z96.642 Presence of left artificial hip joint Z47.1 Aftercare following joint replacement surgery Office Visit 04/06/2016 1:30p Orthopedic Kasandra T84.021D Dislocation of Services Of Janet Pritchard internal left hip C.M.A. prosthesis, subs encntr Z47.1 Aftercare following joint replacement surgery Z96.642 Presence of left artificial hip joint Office Visit 04/05/2016 [facility] Gisela S73.005A Unspecified 9:59a [place] M.D. dislocation of Hospitalists left hip, initial encounter I10 Essential (primary) hypertension Office Visit 04/04/2016 [facility] Crescencio E78.5 Hyperlipidemia, 9:59a Assoc,[place] Mart N.PGifty unspecified Hospitalists E11.9 Type 2 diabetes mellitus without complications S73.005A Unspecified dislocation of left hip, initial encounter I10 Essential (primary) hypertension Office Visit 02/03/2016 [facility] Jasvir Marvin, E16.2 Hypoglycemia, 2:31p [facility] M.D. unspecified Hospitalists E11.9 Type 2 diabetes mellitus without complications S72.002D Fx unsp part of nk of l femr, subs for clos fx w routn heal Office Visit 01/21/2016 [facility] E11.9 Type 2 diabetes 1:49p [place] M.D. mellitus without Hospitalists complications E78.0 Pure hypercholesterolemia S72.002A Fracture of unsp part of neck of left femur, init I10 Essential (primary) hypertension Office Visit 01/20/2016 [facility] E11.9 Type 2 diabetes 1:48p Assoc,sonia Lane M.D. mellitus without Hospitalists complications E78.0 Pure hypercholesterolemia S72.002A Fracture of unsp part of neck of left femur, init I10 Essential (primary) hypertension Office Visit 01/19/2016 [facility] Jamaal Perez E11.9 Type 2 diabetes 1:47p Assoc,[place] AGUILAR M.D. mellitus without Hospitalists complications E78.0 Pure hypercholesterolemia S72.002A Fracture of unsp part of neck of left femur, init I10 Essential (primary) hypertension Office Visit 01/19/2016 7:00a [facility] Brook Hoang, S72.042A Disp fx of Of Melodie ROJAS base of neck of left femur, init for clos fx Office Visit 01/20/2010 12:45a [facility] Luigi Corcoran, 780.97 Altered Assoc,pc M.D. Mental Status Hospitalists 305.00 Alcohol Abuse Unspec 250.02 Diabetes Mellitus W/O Compl Type II Or Unspec Type Uncontrol 401.9 Hypertension Unspec Office Visit 01/19/2010 3:45a [facility] Alec Zavala, 305.00 Alcohol Abuse Assoc,pc M.D. Unspec Hospitalists 401.9 Hypertension Unspec 272.4 Hyperlipidemia Other Unspec 250.00 Diabetes Mellitus W/O Compl Type II Or Unspec Controlled Plan of Treatment Future Appointment(s):06/22/2019 1:45 pm - Will Ace M.D. at [facility]03/17/2019 - Will Ace M.D.G25.0 Essential tremorNew Medication:Primidone 50 mg - take 4 tablets twice a dayFollow up: Follow up in [id number] Parkinson's disease
[2019-04-12] MEDS ORDERED: NS 0.9% 1000 ML** 1,000 ML IV ONE ×2 (21:46→22:45)
[2019-04-12] MEDS ORDERED: Morphine 4 MG/ML VIAL (1 ml) 4 MG/ML VIAL IV ONE (21:47)
[2019-04-12] MEDS ORDERED: Ondansetron INJ* 2 MG/ML VIAL IV ONE (21:48)
--- NOTE | 2019-04-12 21:57 | ED ---
Abdominal Pain/Female - HPI Summary HPI Summary: Patient is a 73 year old F brought by EMS to [facility] with a chief complaint of constant abdominal pain since this morning, 04/12/19, at around 1000. Pain is rated pain 4/10 in severity, per triage. Patient reports that her abdominal area has been hurting all day across her lower abdomen since waking up. Patient reports nausea but denies vomiting. Patient denies fever and chills, per triage. Patient denies past abdomen surgeries and denies taking medications at home for symptoms. Patient reports her last bowel movement was yesterday and that she has constipation which she blames on her medications. Symptoms aggravated by nothing. Symptoms alleviated by nothing. - History of Current Complaint Chief Complaint: EDAbdPain Stated Complaint: ABD PAIN PER EMS Time Seen by Provider: 04/12/19 20:56 Hx Obtained From: Patient Onset/Duration: Sudden Onset - this morning, Still Present Timing: Constant Pain Intensity: 4 Pain Scale Used: 0-10 Numeric Aggravating Factor(s): Nothing Alleviating Factor(s): Nothing Associated Signs and Symptoms: Positive: Constipation, Nausea, Other: - negative - chills. Negative: Fever, Vomiting Allergies/Adverse Reactions: Allergies Allergy/AdvReac Type Severity Reaction Status Date / Time atorvastatin Allergy Fatigue/ Verified 04/12/19 20:50 WEAK Home Medications: Home Medications buPROPion HCl [Bupropion HCl Sr] 150 mg PO BID 04/12/19 [History Confirmed 04/12] PMH/Surg Hx/FS Hx/Imm Hx Endocrine/Hematology History: Reports: Hx Diabetes Denies: Hx Anticoagulant Therapy, Hx Blood Disorders, Hx Blood Transfusions, Hx Bone Marrow Disease, Hx Systemic Lupus Erythematosus, Hx Sickle Cell Disease , Hx Thyroid Disease, Hx Anemia, Hx Unexplained Bleeding, Other Endocrine/ Hematological Disorders Cardiovascular History: Reports: Hx Hypercholesterolemia, Hx Hypertension Denies: Hx Aneurysm, Hx Angina, Hx Angioplasty, Hx Auto Implanted Cardiovert Defib, Hx Cardiac Arrest, Hx Cardiomegaly, Hx Congenital Heart Disease, Hx Congestive Heart Failure, Hx Coronary Artery Disease, Hx Deep Vein Thrombosis, Hx Embolism, Hx Hypotension, Hx Myocardial Infarction, Hx Pacemaker/ICD, Hx Peripheral Vascular Disease, Hx Rheumatic Fever, Hx Syncope, Hx Valvular Heart Disease, Other Cardiovascular Problems/Disorders Respiratory History: Reports: Hx Pneumonia Denies: Hx Asthma, Hx Chronic Bronchitis, Hx Chronic Obstructive Pulmonary Disease (COPD), Hx Cystic Fibrosis, Hx Lung Cancer, Hx Pleural Effusion, Hx Pulmonary Edema, Hx Pulmonary Embolism, Hx Seasonal Allergies, Hx Sleep Apnea, Other Respiratory Problems/Disorders GI History: Denies: Hx Cirrhosis, Hx Crohn's Disease, Hx Diverticulosis, Hx Gall Bladder Disease, Hx Gastroesophageal Reflux Disease, Hx Gastrointestinal Bleed, Hx Hiatal Hernia, Hx Irritable Bowel, Hx Jaundice, Hx Obstructive Bowel, Hx Ileostomy, Hx Pyloric Stenosis, Hx Ulcer, Other GI Disorders History: Denies: Hx Renal Disease Musculoskeletal History: Denies: Hx Arthritis Sensory History: Reports: Hx Contacts or Glasses Denies: Hx Cataracts, Hx Eye Injury, Hx Eye Prosthesis, Hx Glaucoma, Hx Legally Blind, Hx Macular Degeneration, Hx Vision Problem, Hx Deafness, Hx Hearing Aid, Hx Hearing Problem, Other Sensory Impairments Opthamlomology History: Reports: Hx Contacts or Glasses Denies: Hx Cataracts, Hx Eye Injury, Hx Eye Prosthesis, Hx Glaucoma, Hx Legally Blind, Hx Macular Degeneration, Hx Vision Problem, Other Sensory Impairments Neurological History: Reports: Other Neuro Impairments/Disorders - Parkinson's Denies: Hx Dementia, Hx Developmental Delay, Hx Headaches, Hx Migraine, Hx Nerve Disease, Hx Seizures, Hx Spinal Cord Injury, Hx Transient Ischemic Attacks (TIA) Psychiatric History: Reports: Hx Depression Denies: Hx Panic Disorder, Hx of Violent Episodes Against Others - Surgical History Surgery Procedure, Year, and Place: 2008 RIGHT shoulder repair,. tonsilectomy, . LT hip replacement - HEMIARTHROPLASTY D/T FX, - [facility] Hx Anesthesia Reactions: No Infectious Disease History: No Infectious Disease History: Denies: Hx Hepatitis, Hx Human Immunodeficiency Virus (HIV), Hx of Known/ Suspected MRSA, Hx Tuberculosis, Traveled Outside the [place] in Last 30 Days - Family History Known Family History: Negative: Hypertension, Diabetes - Social History Alcohol Use: None Alcohol Amount: unknown Hx Substance Use: No Substance Use Type: Reports: None Hx Tobacco Use: Yes Smoking Status (MU): Former Smoker Type: Cigarettes Amount Used/How Often: one pack a day Length of Time of Smoking/Using Tobacco: 40 years Have You Smoked in the Last Year: Yes Review of Systems Negative: Fever, Chills Gastrointestinal: Other - positive - constipation Positive: Abdominal Pain, Nausea. Negative: Vomiting All Other Systems Reviewed And Are Negative: Yes Physical Exam - Summary Physical Exam Summary: VITAL SIGNS: Reviewed. GENERAL: Patient is a well-developed and nourished FEMALE who is lying comfortable in the stretcher. Patient is not in any acute respiratory distress. HEAD AND FACE: No signs of trauma. No ecchymosis, hematomas or skull depressions. No sinus tenderness. EYES: PERRLA, EOMI x 2, No injected conjunctiva, no nystagmus. EARS: Hearing grossly intact. Ear canals and tympanic membranes are within normal limits. MOUTH: Oropharynx within normal limits. NECK: Supple, trachea is midline, no adenopathy, no JVD, no carotid bruit, no c- spine tenderness, neck with full ROM CHEST: Symmetric, no tenderness at palpation LUNGS: Clear to auscultation bilaterally. No wheezing or crackles. CVS: Regular rate and rhythm, S1 and S2 present, no murmurs or gallops appreciated. ABDOMEN: abdomen distended with hypoactive bowel sounds Rectal: normal rectal tone, no masses, brown stool, send for occult blood EXTREMITIES: FROM in all major joints, no edema, no cyanosis or clubbing. NEURO: Alert and oriented x 3. No acute neurological deficits. Speech is normal and follows commands. SKIN: Dry and warm Triage Information Reviewed: Yes Vital Signs On Initial Exam: Initial Vitals Temp Pulse Resp BP Pulse Ox 98.5 F 72 16 175/84 98 04/12/19 20:47 04/12/19 20:47 04/12/19 20:47 04/12/19 20:47 04/12/19 20:47 Vital Signs Reviewed: Yes Diagnostics - Vital Signs Vital Signs Temp Pulse Resp BP Pulse Ox 04/12/19 20:47 98.5 F 72 16 175/84 98 - Laboratory Result Diagrams: 04/12/19 22:09 04/12/19 23:05 Lab Statement: Any lab studies that have been ordered have been reviewed, and results considered in the medical decision making process. - Radiology Chest X-Ray Radiology Interpretation Completed By: ED Physician Summary of Radiographic Findings: Chest X-Ray shows poor inspiratory effort and no acute process. Pending offical report. - CT Abdomen/Pelvis CTA CT Interpretation Completed By: Radiologist Summary of CT Findings: Per radiologist,. 1. There is an 2.6 cm left adrenal nodule which is incompletely characterized. on this exam. May be more accurately characterized with dedicated CT or MRI. adrenal mass protocol on a nonurgent basis. 2. There is nonobstructive left nephrolithiasis. 3. No CT signs of bowel inflammatory change or ischemia. ED physician has reviewed this imaging report. - EKG 2151 Cardiac Rate: NL - rate of 66 BPM EKG Rhythm: Sinus Rhythm Summary of EKG Findings: EKG showed sinus rhythm with rate of 66 BPM, RBBB. Abdominal Pain Fem Course/Dx - Course Course Of Treatment: Patient is a 73 year old F brought by EMS to [facility] with a chief complaint of constant abdominal pain since this morning, 04/12/19, at around 1000. Pain is rated pain 4/10 in severity, per triage. Patient reports that her abdominal area has been hurting all day across her lower abdomen since waking up. Patient reports nausea but denies vomiting. Patient denies fever and chills, per triage. Patient denies past abdomen surgeries and denies taking medications at home for symptoms. Patient reports her last bowel movement was yesterday and that she has constipation which she blames on her medications. Physical exam shows no abnormalities except for abdomen distended with hypoactive bowel sounds. Rectal exam showed normal rectal tone no masses, brown stool, and send for occult blood. Blood work shows no abnormalities except INR 3.18 H, APTT 44.6 H, Sodium 132 L, Chloride 100 L, BUN 32 H, Creatinine 1.25 H, BUN/Creatinine Ratio 25.6 H, Glucose 187 H, Albumin 3.0 L, and Albumin/Globulin Ratio 0.8 L. Urinalysis shows no abnormalities except for Urine Protein 1+ (30 mg/dl) A, Urine Ketones Trace A, and Ur Squamous Epith Cells Present A. No medications were given in the ED. Abdomen/Pelvis CTA reveals. 1. There is an 2.6 cm left adrenal nodule which is incompletely characterized. on this exam. May be more accurately characterized with dedicated CT or MRI. adrenal mass protocol on a nonurgent basis. 2. There is nonobstructive left nephrolithiasis. 3. No CT signs of bowel inflammatory change or ischemia. Chest X-Ray shows poor inspiratory effort and no acute process. EKG reveals Atrial fibrillation, 83 BPM, Non specific ST changes, and No specific changes from 01/19/19. Physician discusses discharge with patient who agrees with plan. Patient is discharged. Patient intends to follow up with primary care provider within 3 days. - Diagnoses Provider Diagnoses: Nonspecific abdominal pain Discharge - Sign-Out/Discharge Documenting (check all that apply): Patient Departure - discharge Patient Received Moderate/Deep Sedation with Procedure: No - Discharge Plan Condition: Stable Disposition: HOME Patient Education Materials: Abdominal Pain (ED) Referrals: Berhane Alex MD [Primary Care Provider] - 3 Days Additional Instructions: Follow up with primary care provider within 3 days. PLEASE RETURN TO THE ED IMMEDIATELY FOR WORSENING OR CONCERNING SYMPTOMS. - Attestation Statements Document Initiated by Scribe: Yes Documenting Scribe: Gabriella Foss Provider For Whom Ginaibe is Documenting (Include Credential): Ramirez Stiles MD Scribe Attestation: I, Gabriella Foss, scribed for Ramirez Stiles MD on 04/13/19 at 0705. Status of Scribe Document: Ready
[2019-04-12 22:15] LABS: ABS Basophils 0.1 10^3/ul (0-0.2); ABS Eosinophils 0.6 10^3/ul (0-0.6); ABS Lymphocytes 0.8 10^3/ul (1.0-4.8); ABS Monocytes 0.3 10^3/ul (0-0.8); ABS Neutrophils 8.7 10^3/ul (1.5-7.7); Eosinophil % 5.3 %; Hematocrit 36 % (35-47); Lymphocyte % 7.7 %; Mean Corpuscular HGB Conc 33 g/dL (31-36); Mean Corpuscular Hemoglobin 32 pg (27-31); Mean Corpuscular Volume 96 fL (80-97); Mean Platelet Volume 7.9 fL (7.4-10.4); Platelet Count 185 10^3/uL (150-450); Red Blood Count 3.74 10^6 /uL (3.70-4.87); Red Cell Distribution Width 16 % (10-15); White Blood Count 10.4 10^3/uL (3.5-10.8)
[2019-04-12 22:24] LABS: Activated Partial Thrombo Time 30.6 seconds (26.0-38.0); INR 0.97 (0.82-1.09)
[2019-04-12 22:32] LABS: Albumin 3.9 g/dL (3.2-5.2); Albumin/Globulin Ratio 1.3 (1-3); BUN/Creatinine Ratio 24.7 (8-20); C Reactive Protein 1.36 mg/L (<8.01); Calcium 9.7 mg/dL (8.6-10.3); EGFR African American 41.3 (>60); EGFR Non-African American 34.1 (>60); Magnesium 1.7 mg/dL (1.9-2.7); Total Bilirubin 0.3 mg/dL (0.2-1.0); Total Protein 6.9 g/dL (6.4-8.9)
[2019-04-12 22:35] LABS: Potassium 6.5 mmol/L (3.5-5.0)
[2019-04-12] MEDS ORDERED: Iodixanol* (CONTRAST) 320 MG/ML 100 ML SDV IV ONE (22:46)
[2019-04-12 23:31] LABS: BUN/Creatinine Ratio 25.4 (8-20); Calcium 8.5 mg/dL (8.6-10.3); EGFR African American 45.5 (>60); EGFR Non-African American 37.6 (>60)
[2019-04-12 23:40] LABS: Potassium 5.1 mmol/L (3.5-5.0)
[2019-04-13 01:07] VITALS: BP 141/77
[2019-04-13] MEDS ORDERED: NS 0.9% 1000 ML** 1,000 ML IV ONE (01:26)
== END 2019-04-13 02:32 | disposition home or self-care (01) ==
LOC: ED 20:39
DX: R10.9 Unspecified abdominal pain (principal); E11.9 Type 2 diabetes mellitus without complications; E78.00 Pure hypercholesterolemia, unspecified; I10 Essential (primary) hypertension; Z87.891 Personal history of nicotine dependence; Z88.8 Allergy status to other drugs, medicaments and biological substances; Z79.899 Other long term (current) drug therapy; N28.9 Disorder of kidney and ureter, unspecified; N20.0 Calculus of kidney
CPT/HCPCS: 36415; 74019; 74174; 80048; 80053; 82150; 82270; 83605; 83690; 83735; 85025; 85610; 85730; 86140; 93005; 96361; 96374; 96375; 99283; J2270; J2405; Q9967

== ENCOUNTER 2019-08-08 16:23 | Inpatient (IN) | payer MEDICARE, BC ==
--- NOTE | 2019-08-08 17:06 | ED ---
Adult Trauma - HPI Summary HPI Summary: Patient presents with right hip pain status post mechanical fall while climbing stairs. Patient also states she noticed some bleeding from her right elbow and right knee, but states she has no pain in either joint. Patient denies LOC, Head Injury, Headache, N/V, Vision Change, any other symptoms, pain or injury. Patient states she ambulated for a few steps with EMS assistance. Patient on Plavix. Medical history is DM 2, HTN, Parkinson's, HDL. - History of Current Complaint Chief Complaint: EDFall Stated Complaint: FALL-RIGHT HIP PAIN PER EMS Time Seen by Provider: 08/08/19 16:51 Hx Obtained From: Patient Mechanism of Injury: Fall Ambulatory at the Scene: Yes Loss of Consciousness: no loss of consciousness Onset Severity: Moderate Current Severity: Moderate Pain Intensity: 4 Pain Scale Used: 0-10 Numeric Location: Extremities Character: Aching Aggravating Factor(s): Movement Alleviating Factor(s): Rest Associated Signs & Symptoms: Positive: Negative - Additional Pertinent History Primary Care Physician: CELINA - Allergy/Home Medications Allergies/Adverse Reactions: Allergies Allergy/AdvReac Type Severity Reaction Status Date / Time atorvastatin Allergy Fatigue/ Verified 08/08/19 16:26 WEAK Home Medications: Home Medications Aspirin EC TAB* [Ecotrin EC Low Dose 81 MG*] 81 mg PO DAILY 08/08/19 [History Confirmed 08/08/19] Calcium Carbonate/Vitamin D3 [Calcium 600 + Vit D Tablet] 1 tab PO DAILY [History Confirmed 08/08/19] Cyanocobalamin INJ * [Vitamin B12 INJ *] 1,000 mcg IM MONTHLY 08/08/19 [History Confirmed 08/08/19] Lovastatin (NF) [Mevacor (NF)] 40 mg PO BEDTIME 08/08/19 [History Confirmed 09/14] Primidone TAB(*) [Mysoline TAB(*)] 250 mg PO BID 08/08/19 [History Confirmed 09/14] buPROPion SR TAB* [Wellbutrin SR TAB*] 150 mg PO BID 08/08/19 [History Confirmed 08/08/19] PMH/Surg Hx/FS Hx/Imm Hx Endocrine/Hematology History: Reports: Hx Diabetes Denies: Hx Anticoagulant Therapy, Hx Blood Disorders, Hx Blood Transfusions, Hx Bone Marrow Disease, Hx Systemic Lupus Erythematosus, Hx Sickle Cell Disease , Hx Thyroid Disease, Hx Anemia, Hx Unexplained Bleeding, Other Endocrine/ Hematological Disorders Cardiovascular History: Reports: Hx Hypercholesterolemia, Hx Hypertension Denies: Hx Aneurysm, Hx Angina, Hx Angioplasty, Hx Auto Implanted Cardiovert Defib, Hx Cardiac Arrest, Hx Cardiomegaly, Hx Congenital Heart Disease, Hx Congestive Heart Failure, Hx Coronary Artery Disease, Hx Deep Vein Thrombosis, Hx Embolism, Hx Hypotension, Hx Myocardial Infarction, Hx Pacemaker/ICD, Hx Peripheral Vascular Disease, Hx Rheumatic Fever, Hx Syncope, Hx Valvular Heart Disease, Other Cardiovascular Problems/Disorders Respiratory History: Reports: Hx Pneumonia Denies: Hx Asthma, Hx Chronic Bronchitis, Hx Chronic Obstructive Pulmonary Disease (COPD), Hx Cystic Fibrosis, Hx Lung Cancer, Hx Pleural Effusion, Hx Pulmonary Edema, Hx Pulmonary Embolism, Hx Seasonal Allergies, Hx Sleep Apnea, Other Respiratory Problems/Disorders GI History: Denies: Hx Cirrhosis, Hx Crohn's Disease, Hx Diverticulosis, Hx Gall Bladder Disease, Hx Gastroesophageal Reflux Disease, Hx Gastrointestinal Bleed, Hx Hiatal Hernia, Hx Irritable Bowel, Hx Jaundice, Hx Obstructive Bowel, Hx Ileostomy, Hx Pyloric Stenosis, Hx Ulcer, Other GI Disorders History: Denies: Hx Renal Disease Musculoskeletal History: Denies: Hx Arthritis Sensory History: Reports: Hx Contacts or Glasses Denies: Hx Cataracts, Hx Eye Injury, Hx Eye Prosthesis, Hx Glaucoma, Hx Legally Blind, Hx Macular Degeneration, Hx Vision Problem, Hx Deafness, Hx Hearing Aid, Hx Hearing Problem, Other Sensory Impairments Opthamlomology History: Reports: Hx Contacts or Glasses Denies: Hx Cataracts, Hx Eye Injury, Hx Eye Prosthesis, Hx Glaucoma, Hx Legally Blind, Hx Macular Degeneration, Hx Vision Problem, Other Sensory Impairments Neurological History: Reports: Other Neuro Impairments/Disorders - Parkinson's Denies: Hx Dementia, Hx Developmental Delay, Hx Headaches, Hx Migraine, Hx Nerve Disease, Hx Seizures, Hx Spinal Cord Injury, Hx Transient Ischemic Attacks (TIA) Psychiatric History: Reports: Hx Depression Denies: Hx Panic Disorder, Hx of Violent Episodes Against Others - Surgical History Surgery Procedure, Year, and Place: 2008 RIGHT shoulder repair,. tonsilectomy, . LT hip replacement - HEMIARTHROPLASTY D/T FX, - [facility] Hx Anesthesia Reactions: No Infectious Disease History: No Infectious Disease History: Denies: Hx Hepatitis, Hx Human Immunodeficiency Virus (HIV), Hx of Known/ Suspected MRSA, Hx Tuberculosis, Traveled Outside the [place] in Last 30 Days - Family History Known Family History: Negative: Hypertension, Diabetes - Social History Alcohol Use: None Alcohol Amount: unknown Hx Substance Use: No Substance Use Type: Reports: None Hx Tobacco Use: Yes Smoking Status (MU): Former Smoker Type: Cigarettes Amount Used/How Often: one pack a day Length of Time of Smoking/Using Tobacco: 40 years Have You Smoked in the Last Year: Yes Review of Systems Constitutional: Negative Eyes: Negative ENT: Negative Cardiovascular: Negative Respiratory: Negative Gastrointestinal: Negative Genitourinary: Negative Musculoskeletal: Other Skin: Other Neurological: Negative Psychological: Normal All Other Systems Reviewed And Are Negative: Yes Physical Exam - Summary Physical Exam Summary: Full range of motion of bilateral upper extremities and left lower extremity without pain. No evidence of intraoral, facial trauma. No pain with palpation of head, neck, back, chest wall, abdomen. Neuro exam normal. Full range of motion of neck and jaw. PMS intact distally on all 4 extremities. No pain with palpation of right hip. Legs of equal length bilaterally, no external or internal rotation of right foot. Patient moves right leg and small motions without apparent pain. Triage Information Reviewed: Yes Vital Signs On Initial Exam: Initial Vitals Temp Pulse Resp BP Pulse Ox 97.8 F 78 16 178/95 98 08/08/19 16:24 08/08/19 16:24 08/08/19 16:24 08/08/19 16:24 08/08/19 16:24 Vital Signs Reviewed: Yes Appearance: Positive: Well-Appearing Skin: Positive: Warm Head/Face: Positive: Normal Head/Face Inspection Eyes: Positive: Normal ENT: Positive: Normal ENT inspection Dental: Negative: Dental Fracture @, Bleeding Neck: Positive: Supple Respiratory/Lung Sounds: Positive: Clear to Auscultation Cardiovascular: Positive: Normal Abdomen Description: Positive: Nontender Musculoskeletal: Positive: Normal Neurological: Positive: Normal Psychiatric: Positive: Normal AVPU Assessment: Alert - Jamin Coma Scale Best Eye Response: 4 - Spontaneous Best Motor Response: 6 - Obeys Commands Best Verbal Response: 5 - Oriented Coma Scale Total: 15 Procedures - Sedation Patient Received Moderate/Deep Sedation with Procedure: No Diagnostics - Vital Signs Vital Signs Temp Pulse Resp BP Pulse Ox 08/08/19 16:24 97.8 F 78 16 178/95 98 - Laboratory Lab Statement: Any lab studies that have been ordered have been reviewed, and results considered in the medical decision making process. Adult Trauma Course/Dx - Course Course Of Treatment: Patient presents with right hip pain status post mechanical fall while climbing stairs. Patient also states she noticed some bleeding from her right elbow and right knee, but states she has no pain in either joint. Patient denies LOC, Head Injury, Headache, N/V, Vision Change, any other symptoms, pain or injury. Patient states she ambulated for a few steps with EMS assistance. Patient on Plavix. Medical history is DM 2, HTN, Parkinson's, HDL. Vital signs within normal limits. Positive for right lateral neck fracture. Discussed patient with orthopedics Dr. Huffman who recommended admission to hospitalist. Patient admitted to hospitalist. Dr. Macias - Diagnoses Provider Diagnoses: Closed right hip fracture Discharge ED - Sign-Out/Discharge Documenting (check all that apply): Patient Departure - Discharge Plan Condition: Stable Disposition: ADMITTED TO [facility] Referrals: Berhane Alex MD [Primary Care Provider] - - Billing Disposition and Condition Condition: STABLE Disposition: Admitted to [facility]
--- OUTSIDE RECORDS SUMMARY | 2019-08-08 17:15 | XMS REPORT | Continuity of Care Document ---
:1945 External Reference #:[id number] Author Name Abdirizak Maddox M.D. 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 Onset: 03/20/2016 Prosthetic arthroplasty of the hip Kasandra Pritchard M.D. Onset: 03/20/2016 Parkinson's disease Will Ace M.D. Onset: 04/19/2018 Essential tremor Will Ace M.D. Onset: 04/19/2018 Chronic fatigue syndrome Will Ace M.D. Onset: 04/19/2018 Atherosclerosis of arteries of the Abdirizak Maddox M.D. Onset: 09/07/2018 extremities Social History Type Date Description Comments Sex Unknown ETOH Use Denies alcohol use quit 04/2018 Recreational Drug Use Denies Drug Use Tobacco Use Start: Unknown End: Patient is a former stopped February Unknown smoker Smoking Status Reviewed: 05/31/19 Patient is a former stopped February smoker Exercise Type/Frequency Does not exercise Allergies, Adverse [...] tablets by Tablets ER 12HR mouth daily. Immunizations Description No Information Available Vital Signs Date Vital Result Comment 05/31/2019 10:55am Height 67 inches 5'7" Weight 114.00 lb with shoes Heart Rate 78 /min radial BP Systolic Sitting 142 mmHg Lue reg cuff BP Diastolic Sitting 70 mmHg Lue reg cuff BP Systolic Standing 138 mmHg Lue reg cuff BP Diastolic Standing 70 mmHg Lue reg cuff BMI (Body Mass Index) 17.9 kg/m2 03/17/2019 1:25pm Height 67 inches 5'7" Weight 110.00 lb Heart Rate 72 /min BP Systolic 128 mmHg BP Diastolic 70 mmHg BMI (Body Mass Index) 17.2 kg/m2 Results Description No Information Available Procedures Date Code Description Status 01/24/2019 13686 Removal Devitalization Tissue Wound Less Than Equal 20 Completed Square CM 01/10/2019 98848 Removal Devitalization Tissue Wound Less Than Equal 20 Completed Square CM 12/27/2018 13346 Removal Devitalization Tissue Wound Less Than Equal 20 Completed Square CM Medical Devices Description No Information Available Encounters Type Date Location Provider Dx Diagnosis Office Visit 05/31/2019 [facility] Abdirizak Maddox, I70.202 Unsp athscl 11:00a [facility] [place] arteries of extremities, left leg Office Visit 03/17/2019 [facility] Will Ace, G25.0 Essential tremor 1:30p [facility] G20 Parkinson's disease Office Visit 02/07/2019 1:00p Wound Care Jayme Stone L97.528 [place] [facility] [place] ulcer oth prt left foot with oth severity E11.621 Type 2 diabetes mellitus with foot ulcer B95.62 Methicillin resis staph infct causing diseases classd elswhr I10 Essential (primary) hypertension R09.89 Oth symptoms and signs involving the circ and resp systems Office Visit 01/11/2019 11:00a [facility] Abdirizak [place] I70.262 [facility] [place] [facility] Maddox M.D. arteries of extremities w gangrene, left leg Office Visit 12/13/2018 12:45p Wound Care Jayme Stone L97.512 [place]-pr[place] [facility] [place] ulcer oth prt right foot w fat layer exposed E11.621 Type 2 diabetes mellitus with foot ulcer B95.62 Methicillin resis staph infct causing diseases classd elswhr R09.89 Oth symptoms and signs involving the circ and resp systems M86.672 Other chronic osteomyelitis, left ankle and foot Assessments Date Code Description Provider 05/31/2019 I70.202 Unspecified atherosclerosis of [place] Abdirizak Maddox M.D. arteries of extremities, left leg 03/17/2019 G25.0 Essential tremor Will Ace M.D. 03/17/2019 G20 Parkinson's disease Will Ace M.D. 02/07/2019 L97.528 Non-prs chronic ulcer oth prt left foot Jayme Marin M.D. with oth severity 02/07/2019 E11.621 Type 2 diabetes mellitus with foot ulcer Jayme Marin M.D. 02/07/2019 B95.62 Methicillin resistant Staphylococcus aureus Jayme Marin M.D. infection as the 02/07/2019 I10 Essential (primary) hypertension Jayme Marin M.D. 02/07/2019 R09.89 Other specified symptoms and signs Jayme Marin M.D. involving the circulatory 01/24/2019 L97.521 Non-prs chronic ulcer oth prt l foot Jayme Marin M.D. limited to brkdwn skin 01/24/2019 E11.621 Type 2 diabetes mellitus with foot ulcer Jayme Marin M.D. 01/24/2019 B95.62 Methicillin resistant Staphylococcus aureus Jayme Marin M.D. infection as the 01/24/2019 M86.672 Other chronic osteomyelitis, left ankle and Jayme Marin M.D. foot 01/24/2019 R09.89 Other specified symptoms and signs Jayme Marin M.D. involving the circulatory 01/11/2019 I70.262 Atherosclerosis of [place] arteries of Abdirizak Maddox M.D. extremities with gangr 01/10/2019 L97.521 Non-prs chronic ulcer oth prt l foot Jayme Marin M.D. limited to brkdwn skin 01/10/2019 E11.621 Type 2 diabetes mellitus with foot ulcer Jayme Marin M.D. 01/10/2019 B95.62 Methicillin resistant Staphylococcus aureus Jayme Marin M.D. infection as the 01/10/2019 M86.672 Other chronic osteomyelitis, left ankle and Jayme Marin M.D. foot 01/10/2019 R09.89 Other specified symptoms and signs Jayme Marin M.D. involving the circulatory 12/27/2018 L97.522 Non-prs chronic ulcer oth prt left foot w Jayme Marin M.D. fat layer exposed 12/27/2018 E11.621 Type 2 diabetes mellitus with foot ulcer Jayme Marin M.D. 12/27/2018 B95.62 Methicillin resistant Staphylococcus aureus Jayme Marin M.D. infection as the 12/27/2018 R09.89 Other specified symptoms and signs Jayme Marin M.D. involving the circulatory 12/13/2018 L97.512 Non-prs chronic ulcer oth prt right foot w Jayme Marin M.D. fat layer exposed 12/13/2018 E11.621 Type 2 diabetes mellitus with foot ulcer Jayme Marin M.D. 12/13/2018 B95.62 Methicillin resistant Staphylococcus aureus Jayme Marin M.D. infection as the 12/13/2018 R09.89 Other specified symptoms and signs Jayme Marin M.D. involving the circulatory 12/13/2018 M86.672 Other chronic osteomyelitis, left ankle and Jayme Marin M.D. foot Plan of Treatment Future Appointment(s):06/22/2019 1:45 pm - [facility] at [facility]05/31/2019 - Abdirizak Maddox M.D.I70.202 Unspecified atherosclerosis of [place] arteries of extremities, left legComments:The following was discussed with Radha at the time of her clinic visit:The most recent DAJUAN as well as physical exam findings indicate that the previously occluded left superficial femoral artery has re-occluded since revascularization on 12/01/2018. In the interval, the left second toe wound has healed. The patient continues to not have claudication or rest pain symptoms. She has a small erythematous spot on the dorsal left fourth toe. 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 There are further endovascular options including atherectomy, drug-coated angioplasty and/or stenting that remain available should the indication exists to revascularize the left SFA a second time.The patient was advised to finish the Plavix regimen that she currently has filled and then she can stop Plavix. She was advised to walk and exercise daily.Radha was commended on 2 months without smoking and encouraged to continue tonot smoke.Routine vascular follow- up will occur late November or early December 2019, but Radha at was encouraged to contact our clinic should she develop any new foot wounds or symptoms characteristic of arterial insufficiency. Functional Status Description No Information Available Mental Status Description No Information Available Referrals Description No Information Available
--- OUTSIDE RECORDS SUMMARY | 2019-08-08 17:15 | XMS REPORT | Continuity of Care Document ---
:1945 External Reference #:[id number] Author Name Will Ace M.D. (transmitted by agent of provider James Lindo) Address [address], [place] [address] Care Team Providers Name Role Phone Berhane Alex MD - Family Medicine Care Team Information Supervisor [employer] [phone] Problems Active Problems Provider Date Closed fracture [...] stopped February Unknown smoker Smoking Status Reviewed: 06/22/19 Patient is a former stopped February smoker Exercise Type/Frequency Does not exercise Allergies, Adverse Reactions, Alerts Active Allergies Reaction Severity Comments Date Lipitor 04/06/2016 Medications Active Medications SIG Qnty Indications Ordering Provider Date Primidone 500mg 1 tab in 60tabs G25.0 Will Ace, 06/22/2019 250mg am 1 tab in pm M.D. Tablets Plavix 1 by mouth every 90tabs Abdirizak Maddox, 12/02/2018 75mg Tablets day M.D. Lovastatin 1 by mouth every Unknown 40mg night at bedtime Tablets Metformin HCL 1 by mouth twice Unknown 850mg a day Tablets Aspir-81 1 by mouth every Unknown 81mg Tablets day DR Metoprolol Succinate Take 1 Tablet By Unknown ER Mouth Every Day 25mg Tablets ER 24HR Valsartan-Hydrochlor Take 1 Tablet By Unknown othiazide Mouth Every Day 160-12.5mg Tablets Vitamin Deficiency once monthly at Unknown Injectable doctor's System-B12 1000mcg/ML Kit Wellbutrin SR take two tablets Unknown 150mg by mouth daily. Tablets ER 12HR History Medications Primidone take 4 tablets 240tabs G25.0 Will Ace, 03/17/2019 - 50mg twice a day M.DGifty 06/22/2019 Tablets Immunizations Description No Information Available Vital Signs Date Vital Result Comment 06/22/2019 1:54pm Height 67 inches 5'7" Weight 114.00 lb Heart Rate 60 /min BP Systolic 100 mmHg BP Diastolic 62 mmHg BMI (Body Mass Index) 17.9 kg/m2 05/31/2019 10:55am Height 67 inches 5'7" Weight 114.00 lb with shoes Heart Rate 78 /min radial BP Systolic Sitting 142 mmHg Lue reg cuff BP Diastolic Sitting 70 mmHg Lue reg cuff BP Systolic Standing 138 mmHg Lue reg cuff BP Diastolic Standing 70 mmHg Lue reg cuff BMI (Body Mass Index) 17.9 kg/m2 Results Description No Information Available Procedures Date Code Description Status 01/24/2019 94179 Removal Devitalization Tissue Wound Less Than Equal 20 Completed Square CM 01/10/2019 16508 Removal Devitalization Tissue Wound Less Than Equal 20 Completed Square CM 12/27/2018 69092 Removal Devitalization Tissue Wound Less Than Equal 20 Completed Square CM Medical Devices Description No Information Available Encounters Type Date Location Provider Dx Diagnosis Office Visit 06/22/2019 [facility] Will Ace G25.0 Essential tremor 1:45p [facility] G20 Parkinson's disease Office Visit 05/31/2019 [facility] Abdirizak Maddox, I70.202 Unsp athscl 11:00a [facility] [place] arteries of extremities, left leg Office Visit 03/17/2019 [facility] Solis G25.0 Essential tremor 1:30p Neurologic Janet Ace [facility] G20 Parkinson's disease Office Visit 02/07/2019 1:00p Wound Care Jayme Stone L97.528 Non-prs chronic Center [facility] [place] Janet Marin ulcer oth prt left foot with oth severity E11.621 Type 2 diabetes mellitus with foot ulcer B95.62 Methicillin resis staph infct causing diseases classd elswhr I10 Essential (primary) hypertension R09.89 Oth symptoms and signs involving the circ and resp systems Office Visit 01/11/2019 11:00a [facility] Abdirizak [place] I70.262 Ath[facility] [place] [facility] Maddox M.D. arteries of extremities w gangrene, left leg Assessments Date Code Description Provider 06/22/2019 G25.0 Essential tremor Will Ace M.D. 06/22/2019 G20 Parkinson's disease Will Ace M.D. 05/31/2019 I70.202 Unspecified atherosclerosis of [place] Abdirizak Maddox M.D. arteries of extremities, left [...] involving the circulatory 01/11/2019 I70.262 Atherosclerosis of [place] arteries of Abdirizak Maddox M.D. extremities with [...] signs Jayme Marin M.D. involving the circulatory Plan of Treatment Future Appointment(s):09/22/2019 1:45 pm - [facility] at [facility]06/22/2019 - Will Ace M.D.G25.0 Essential tremorNew Medication:Primidone 250 mg - 500mg 1 tab in am 1 tab in pmFollow up: Follow up in 3 monthsRecommendations:Look online for weighted utensils and pens. These can be found at [place] Parkinson's disease Functional Status Description No Information Available Mental Status Description No Information Available Referrals Description No Information Available
--- OUTSIDE RECORDS SUMMARY | 2019-08-08 17:15 | XMS REPORT | Summary of Care ---
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 Reason for Visit Reason Comments Follow Up pt presents for follow up Encounter Details Date Type Department Care Team Description 06/30/2019 Office Visit [facility] Berhane Alex MD Diabetic ulcer of toe of left foot associated with type 2 diabetes mellitus, with fat layer exposed (HCC) (Primary Dx); Practice [address] [facility] B12 deficiency; [address] [place] [address] Essential hypertension [place], [place] [id number] Allergies Active Allergy Reactions Severity Noted Date Comments Fosamax Rash 03/22/2013 Atorvastatin Calcium GI Reaction 04/02/2010 Losartan 05/22/2008 Nausea documented as of this encounter (statuses as of 07/02/2019) Medications Medication Sig Dispensed Refills Start Date End Date Status CALCIUM 600/VITAMIN D DAILY. 0 Active (CALCIUM 600 + D) 600-200 MG-UNIT Oral Tab ASPIRIN 81 MG Oral Tab Take 1 Tab by 0 Active mouth DAILY. primidone (MYSOLINE) 50 Take 1 Tab by 120 Tab 1 12/29/2017 Active MG Oral Tab mouth EVERY SIX HOURS. Additional information Patient taking differently: 250 mg Oral BID, Reported on 06/30/2019 1:08 PM cyanocobalamin (VITAMIN B12) Inject 1 mL within a 5 mL 0 05/26/2018 Active 1000 MCG/ML Injection Solution muscle DIRECTED for 1 dose. 1 ml a day for a week then 1 ml a week for a month then 1 a month Valsartan-hydroCHLOROthiazide TAKE 1 TABLET BY MOUTH 30 Tab 5 02/01/2019 Active 160-12.5 MG Oral Tab EVERY DAY metFORMIN (GLUCOPHAGE) 850 MG TAKE 1 TABLET BY MOUTH 60 Tab 5 02/01/2019 Active Oral Tab TWICE A DAY metoprolol succinate (TOPROL TAKE 1 TABLET BY MOUTH 30 Tab 5 02/06/2019 Active XL) 25 MG Oral TABLET SR 24 HR EVERY DAY clopidogrel (PLAVIX) 75 MG Oral Take 75 mg by mouth 0 Active Tab DAILY. 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 documented as of this encounter (statuses as of 07/02/2019) Resolved Problems Problem Noted Date Resolved Date History of High Triglycerides 05/22/2008 08/21/2014 Hypothyroidism 05/22/2008 04/02/2010 Tobacco user 06/30/2019 Overview: tobacco user Osteopenia 07/11/2013 Overview: hi risk Frax 2.4 major 36% hip 7.3% documented as of this encounter (statuses as of 07/02/2019) Immunizations Name Administration Dates Next Due Influenza (IM) Preservative Free 07/11/2013, 06/16/2011, 08/30/2008 Influenza Vaccine 65 Yrs + 06/30/2019 Influenza Vaccine High Dose 06/08/2018, 10/29/2017, 06/15/2016, 09/24/2015, 08/28/2014 PNEUMOCOCCAL POLYSACCHARIDE VACCINE 12/12/2012 Pneumococcal Conjugate(13 Valent) 06/15/2016 Vitamin B12 (1,000 mcg) 06/10/2018, 01/08/2014, 10/25/2013, 10/24/2013, 08/03/2013 dT Vaccine 09/17/2005 documented as of this encounter Social History Tobacco Use Types Packs/Day Years Used Date Former Smoker Cigarettes 0.5 50 Quit: 03/16/2019 Smokeless Tobacco: Never Used Alcohol Use Drinks/Week oz/Week Comments Yes 0 Standard drinks or equivalent 0.0 rare Sex Assigned at Date Recorded Not on file Job Start Date Occupation Industry Not on file Not on file Not on file Travel History Travel Start Travel End No recent travel history available. documented as of this encounter Last Filed Vital Signs Vital Sign Reading Time Taken Comments Blood Pressure 112/62 06/30/2019 1:09 PM EDT Pulse 70 06/30/2019 1:09 PM EDT Temperature 35.9 06/30/2019 1:09 PM EDT C (96.6 F) Respiratory Rate - - Oxygen Saturation 98% 06/30/2019 1:09 PM EDT Inhaled Oxygen Concentration - - Weight 50.2 kg (110 lb 9.6 oz) 06/30/2019 1:09 PM EDT Height 162.6 cm (5' 4") 06/30/2019 1:09 PM EDT Body Mass Index 18.98 06/30/2019 1:09 PM EDT documented in this encounter Progress Notes Berhane Alex MD - 06/30/2019 1:00 PM EDT PATIENT: Radha Mckinney : 1945 DATE OF SERVICE: 06/30/2019 CHIEF COMPLAINT: Chief Complaint Patient presents with Follow Up pt presents for follow up Subjective HISTORY OF PRESENT ILLNESS: Radha Mckinney is a 73-y.o. female. in for follow up of diabetes mellitus. She /is not checking their sugars Not eat much . Sometimesfruit and vegetables, craves candy /She denies hypoglycemic symptoms. 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 In for follow up of hypertension. Is not checking home BP . no side effects to medicines Dr Ace has not said she has Parkinsons yet , she is on B12 injectionsmonthly last one 2 weeks ago She quit smoking 3 months ago with wellbutrin , she said mood is ok but she misses the cigarettes She has cravings. She is fighting gaining weight Past Medical History: Diagnosis Date B12 deficiency Blepharitis 05/22/2008 Diabetes mellitus type II 09/15/2006 Diabetic retinopathy 09/03 arleo but 2011 exam was negative History of High Triglycerides 05/22/2008 Hyperlipidemia 05/22/2008 Hypertension 05/22/2008 Hypothyroidism 05/22/2008 appears resolved Osteopenia 2010 hi risk Frax 2.4 major 36% hip 7.3% med made ill PAD (peripheral artery disease) ([facility]) 2017 left=0.57 S/p left hip fracture 2016 repaired SHOULDER FRACTURE right ORIF vianey Tobacco user Vitamin D deficiency Family History Problem Relation Age of Onset Diabetes Father Hypertension Mother Current Outpatient Medications Medication Sig ASPIRIN 81 MG Oral Tab Take 1 Tab by mouth DAILY. buPROPion (WELLBUTRIN SR) 150 MG Oral TABLET SR 12 HR TAKE 1 TABLET BY MOUTH TWICE A DAY CALCIUM 600/VITAMIN D (CALCIUM 600 + D) 600-200 MG-UNIT Oral Tab DAILY. clopidogrel (PLAVIX) 75 MG Oral Tab Take 75 mg by mouth DAILY. cyanocobalamin (VITAMIN B12) 1000 MCG/ML Injection Solution Inject 1 mL within a muscle DIRECTED for 1 dose. 1 ml a day for a week then 1 ml a week for a month then 1 a month Lovastatin 40 MG Oral Tab TAKE 1 TABLET BY MOUTH EVERYDAY AT BEDTIME metFORMIN (GLUCOPHAGE) 850 MG Oral Tab TAKE 1 TABLET BY MOUTH TWICE A DAY metoprolol succinate (TOPROL XL) 25 MG Oral TABLET SR 24 HR TAKE 1 TABLET BY MOUTH EVERY DAY primidone (MYSOLINE) 50 MG Oral Tab Take 1 Tab by mouth EVERY SIX HOURS. (Patient taking differently: Take 250 mg by mouth TWICE DAILY.) Valsartan-hydroCHLOROthiazide 160-12.5 MG Oral Tab TAKE 1 TABLET BY MOUTH EVERY DAY No current facility-administered medications for this visit. Allergies Allergen Reactions Fosamax Rash Lipitor [Atorvastatin Calcium] GI Reaction Losartan Nausea Social History Socioeconomic History Marital status: Single Spouse name: Not on file Number of children: Not on file Years of education: Not on file Highest education level: Not on file Occupational History Not on file Social Needs Financial resource strain: Not on file Food insecurity: Worry: Not on file Inability: Not on file Transportation needs: Medical: Not on file Non-medical: Not on file Tobacco Use Smoking status: Former Smoker Packs/day: 0.50 Years: 50.00 Pack years: 25.00 Types: Cigarettes Last attempt to quit: 03/16/2019 Years since quittin.2 Smokeless tobacco: Never Used Substance and Sexual Activity Alcohol use: Yes Alcohol/week: 0.0 standard drinks Comment: rare Drug use: Not on file Sexual activity: Not on file Lifestyle Physical activity: Days per week: Not on file Minutes per session: Not on file Stress: Not on file Relationships Social connections: Talks on phone: Not on file Gets together: Not on file Attends mandaeism service: Not on file Active member of club or organization: Not on file Attends meetings of clubs or organizations: Not on file Relationship status: Not on file Intimate partner violence: Fear of current or ex partner: Not on file Emotionally abused: Not on file Physically abused: Not on file Forced sexual activity: Not on file Other Topics Concern Not on file Social History Narrative Not on file REVIEW OF SYSTEMS: ROS Objective PHYSICAL EXAM: VITALS: BP 112/62 (BP Location: Left arm, Patient Position: Sitting) | Pulse 70 | Temp 96.6 F(35.9 C) | Ht 5' 4" (1.626 m) | Wt 110 lb 9.6 oz ( 50.2 kg) | SpO2 98% | BMI 18.98 kg/m Body mass index is 18.98 kg/m. Physical Exam Vitals signs reviewed. Constitutional: Appearance: Normal appearance. HENT: Mouth/Throat: Pharynx: Oropharynx is clear. Cardiovascular: Rate and Rhythm: Normal rate and regular rhythm. Heart sounds: Normal heart sounds. Pulmonary: Effort: Pulmonary effort is normal. No respiratory distress. Breath sounds: Normal breath sounds. Musculoskeletal: Right lower leg: No edema. Left lower leg: No edema. Comments: Kyphotic Hammertoes 1 red spot on 4th toe is from rubbing, not a breakdown Psychiatric: Comments: Dress and hygiene good Good eye contact Thoughts and speech normal Affect Appropriate Mood normal ASSESSMENT / IMPRESSION: ICD-9-CM ICD-10-CM 1. Diabetic ulcer of toe of left foot associated with type 2 diabetes mellitus, with fat layer exposed (HCC) is healed but hammer toe is at risk due to friction recommend using the pad for protection and look at feet daily and assess for color change , temp change 250.80 E11.621 COMPREHENSIVE METABOLIC PANEL 707.15 L97.522 GLYCOHEMOGLOBIN A1C 2. B12 deficiency been on monthly injections , check levels see if can go q 2 mo 266.2 E53.8 [id number] / FOLATE 3. Essential hypertension 401.9 I10 BP good, try cut toprol in half Plan Flu shot today follow up 6 mo Author: Berhane Alex MD 06/30/2019 13:18 documented in this encounter Plan of Treatment Date Type Specialty Care Team Description 07/20/2019 Nurse/Clinical Support Internal Medicine 01/23/2020 Office Visit Family Practice Berhane Alex MD [address] [place] [address] [phone] Health Maintenance Due Date Last Done Comments MEDICARE ANNUAL WELLNESS 1945 VISIT MAMMOGRAM (SCREENING) 1986 ZOSTER IMMUNIZATION SERIES 1996 (1 of 2) FALL RISK ASSESSMENT 2011 HEMOGLOBIN A1C 12/30/2019 06/30/2019, 12/07/2018, 05/13/2018, Additional history exists DEPRESSION SCREENING 03/15/2020 03/15/2019 FOOT EXAM 03/29/2020 03/29/2019, 03/29/2019, 10/29/2017, Additional history exists LIPID DISORDER SCREENING 06/12/2020 06/12/2019, 12/07/2018, 12/06/2017, Additional history exists OSTEOPOROSIS SCREENING 01/08/2021 01/08/2011 Diabetic Eye Exam 06/08/2021 06/08/2019, 12/14/2017, 12/14/2017, Additional history exists COLONOSCOPY SCREENING 07/11/2023 07/11/2013 (Declined) PNEUMOCOCCAL 65+YRS Completed 06/15/2016, 12/12/2012 INFLUENZA VACCINE Completed 06/30/2019, 06/08/2018, 10/29/2017, Additional history exists HPV IMMUNIZATION SERIES Aged Out No longer eligible based on patient's age to complete this topic MENINGOCOCCAL VACCINE IMM Aged Out No longer eligible based on patient's age to complete this topic documented as of this encounter Goals Goal Patient Goal Associated Recent Patient-Stated? Author Type Problems Progress Blood Pressure Blood Pressure Hypertension 112/62 No Isai, < 140/90 (06/30/2019 MD Berhane 1:09 PM EDT) Note: Hypertension Care Plan Based on the patient's clinical history and according to JNC 8 guidelines target blood pressure goal is less than 140/90. Based on the patient's last blood pressure of BP: 160/82 mmHg the patient is at above goal. As your provider, it is important that I advise you regarding: your current medications and help you with any challenges you may face taking your medications as directed (ex. instructions, cost, side effects, and interactions). lifestyle changes: exercise, dietary sodium reduction and smoking cessation your clinical goals and how you can achieve success: exercise plan, diet improvements and smoking cessation medication management: adjusted medications as appropriate patient education/self-management tools provided: Current self-management tools adequate To successfully manage my Hypertension I will: monitor my blood pressure daily, understanding that my goal is less than 140/ 90 per my healthcare provider's recommendation. I will schedule an appointment with my provider if consistent abnormal readings greater than 160/100. take medications every day as prescribed by my healthcare provider and if unable to take them I will discuss with my provider. monitor for symptoms of chest pain, chest tightness/pressure, irregular heartbeat, persistent dizziness, radiating arm pain, and neck or jaw pain. If any of these symptoms are noticed I will seek medical attention immediately by calling 911 exercise/walk 15 minutes 4 day(s) per week. If I experience chest pain, chest tightness, or shortness of breath, I will seek medical attention immediately. follow a diet rich in fruits, vegetables, and low-fat dairy products with reduced content of saturated & total fat. I will reduce my sodium intake daily. An example is the DASH diet. To obtain more information please refer to the DASH Eating Plan listed in Educational Resources. record my blood pressure results. Qomutye is safe and secure way for you to do this in your medical record online. try to obtain an ideal body weight. My recent weight was Weight: 147 lb 3.2 oz (66.769 kg). My weight loss goal for my next office visit is zero. limit alcohol consumption. For men two drinks per day and women one drink per day. if currently smoking, will discuss how to quit smoking with my healthcare provider and work towards quitting. Educational Resources: National Heart, Lung, & Blood [place] http://nhlbi.nih.gov/hbp/index.html The DASH Diet Eating Plan http://www.nhlbi.nih.gov/health/health-topics/ topics/dash/ Academy of Nutrition & DIetetics http://eatright.org National Smoking Cessation Site http://smokefree.gov Blood Pressure < 140/90 Blood Pressure 112/62 (06/30/2019 1:09 No Berhane Alex MD PM EDT) Note: This is an individualized treatment (blood pressure) goal for Radha L Hank: Displayed above (on the left) is your goal for blood pressure control. Your most recent blood pressure is also shown above, on the right. You should try to achieve blood pressures that are lower than your goal listed above (on the left). Depression screen (PHQ-9) total score < 5 Depression No Berhane Alex MD Note: This is an individualized treatment (depression) goal for Radha Mckinney: Displayed above is your goal for a depression screening (PHQ-9) score that would indicate good control of your depression. Diabetes < 7.0 Diabetes Diabetes mellitus, 5.6 (06/30/2019 2:00 No Berhane Alex MD type 2 PM EDT) Note: Diabetes Care Plan According to current 2014 ADA guidelines the patient A1C goal is less than 7. The patient's last A1C was Lab Results Lab Results Value Date/Time GLYCO 5.3 08/28/2014 1351 GLYCO 5.4 10/17/2013 1302 The patient is:at goal . As your provider, it is important that I advise you regarding: your current medications and help you with any challenges you may face taking your medications as directed (ex. instructions, cost, side effects, and interactions). Important lifestyle changes:exercise, diet, glucose monitoring and smoking cessation your clinical goals and how you can achieve success:weight reduction, exercise plan, diet management, glucose monitoring and smoking cessation medication management: adjusted medications as appropriate patient education/self-management tools provided: Current self-management tools adequate To successfully manage my Diabetes I will: have lab work every six months if my previous A1c was 7 or less. If my results were greater than 7, I will have lab work every three months. My goal is to control my diabetes by keeping A1c below 7.0 take medications every day as prescribed by my healthcare provider and if unable to take them I will discuss with my provider. exercise/walk 30 minutes 5 day(s) per week. If I experience chest pain, chest tightness, or shortness of breath, I will seek medical attention immediately. check feet daily. If sores or irritation are noticed, will seek medical attention. follow a low carbohydrate and low fat diet. My goal is an LDL (bad cholesterol) number less than 100 when I have my routine lab work. check blood sugar as instructed and will call my healthcare provider if the results are consistently below 70 or above 300. I will monitor for symptoms of low blood sugar (feeling faint, dizzy, lig htheaded, jittery, sweaty, or hungry), if symptoms are noticed, I will eat or drink something (glucose tabs, orange juice, candy) to help raise sugar. record my blood sugar results (including dextrose sticks). Qomutye is safe and secure way for you to do this in your medical record online. try to obtain an ideal body weight. My recent weight was Weight: 134 lb ( 60.782 kg). My weight loss goal for my next office visit is 130lbs. to prevent kidney problems common to people with diabetes I will complete a yearly Microalbumin to check for protein in urine. I will talk with my healthcare provider about medications to prevent diabetic renal disease. to prevent diabetic retinopathy I will see an eye doctor yearly. A yearly dilated eye exam helps prevent blindness. if currently smoking, will discuss how to quit smoking with my healthcare provider and work towards quitting. Glycohemoglobin A1c < 7.0 Diabetes 5.6 (06/30/2019 2:00 PM Berhane Lowe MD EDT) Note: This is an individualized treatment (diabetes control, HgbA1C) goal for Radha Mckinney: Displayed above is your progress towards your HgbA1C goal. Your goal is shown above (on the left); your most recent HgbA1C is shown on the right. Note that lower numbers are better. Keep immunizations current Lifestyle No Berhane Alex MD Note: This is an individualized lifestyle goal for Radha Butcher Hank: Please be sure to keep up-to-date on recommended immunizations. For example, this would include a yearly influenza vaccine. Immunization status can be seen by looking at the Health Maintenance sections of your e[facility], Plan of Care, and any After Visit Summaries. Keep a regular sleep schedule Lifestyle No Berhane Alex MD Note: This is an individualized lifestyle goal for Radha Butcher Hank: Please maintain a regular sleep schedule. This may help with some symptoms of depression. Take all prescribed medications as directed Self-management No Berhane Alex MD Note: This is an individualized self-management goal for Radha Butcher [place]: Please take all prescribed medications as directed. 1. Do not skip doses. If you cannot afford your medications, talk with your doctor. 2. Use a pill reminder system such as a pill box if needed. Your pharmacist can help you with this. 3. Contact your Pharmacy 5 days before your medication runs out. If you cannot take your medications for any reasons, talk with your doctor. 4. Please bring all of your medication bottles and inhalers (or a list of all your medications/inhalers) with you to every visit. Potential barriers to meeting all of your care plan goals will continue to be addressed on an ongoing basis. documented as of this encounter Procedures Procedure Name Priority Date/Time Associated Comments Diagnosis VITAMIN B12 / FOLATE Routine 06/30/2019 2:00 B12 deficiency Results for this PM EDT procedure are in the results section. GLYCOHEMOGLOBIN A1C Routine 06/30/2019 2:00 Diabetic ulcer of Results for this PM EDT toe of left foot procedure are in associated with the results type 2 diabetes section. mellitus, with fat layer exposed (HCC) COMPREHENSIVE METABOLIC Routine 06/30/2019 2:00 Diabetic ulcer of Results for this PANEL PM EDT toe of left foot procedure are in associated with the results type 2 diabetes section. mellitus, with fat layer exposed (HCC) DIABETES OPH EXAM Routine 06/08/2019 documented in this encounter Results GLYCOHEMOGLOBIN A1C (06/30/2019 2:00 PM EDT) Glycohemoglobin A1C 5.6 <=5.6 % [facility] Comment: [facility] Normal*: <=5.6% Pre Diabetes* Risk: 5.7-6.4% Diabetes* Risk: >=6.5% Glycemic Goals for Adult Diabetes*: <7.0% *(Adult Ranges)[place] Diabetes Association, Standards of Medical Care in Diabetes, 2018 Specimen Blood - Blood specimen (specimen) Performing Organization Address [facility] Phone Number [facility] [address] [place] [address] VITAMIN B12 / FOLATE (06/30/2019 2:00 PM EDT) Vitamin B12 818 239 - 931 pg/ml [facility] Folate 5.8 2.8 - 20.0 ng/ml [facility] Specimen Blood - Blood specimen (specimen) Performing Organization Address [facility] Phone Number [facility] [address] [place] [address] [phone] COMPREHENSIVE METABOLIC PANEL (06/30/2019 2:00 PM EDT) Sodium 139 134 - 145 mmol/L [facility] Potassium 5.2 (H) 3.5 - 5.1 mmol/L [facility] Chloride 101 98 - 107 mmol/L [facility] CO2 24 22 - 30 mmol/L [facility] Calcium 9.6 8.3 - 10.1 mg/dl [facility] Albumin 4.2 3.5 - 5.0 g/dl [facility] BUN 33 (H) 7 - 17 mg/dl [facility] Creatinine 1.3 (H) 0.7 - 1.2 mg/dl [facility] Glucose 94 70 - 99 mg/dl [facility] Total Protein 7.9 6.3 - 8.2 g/dl [facility] Total Bilirubin 0.2 0.0 - 1.1 MG/DL [facility] AST 29 15 - 46 U/L [facility] ALT 35 9 - 52 U/L [facility] Alkaline 92 40 - 150 U/L [facility] Phosphatase [facility] eGFR 40 See Interpretation [facility] Comment: Below ml/min/1.73ml GROUP Estimated GFR Interpretation: Sq LABORATORY Above 60ml/min/1.73m2 = Normal Renal Function 30-59 ml/min/1.73m2 = Stage 3 Chronic Kidney Disease 15-29 ml/min/1.73m2 = Stage 4 Chronic Kidney Disease Less than 15 ml/min/1.73m2 = Stage 5 Chronic Kidney Disease The GFR value is calculated using the Modification of Diet in Renal Disease ( MDRD) Study Equation which can be found at: https://www.kidney.org/content/lkje-fggzw-ycizsdyx BUN/Creatinine 25 (H) 6 - 22 RATIO [facility] Anion Gap 14 (H) 3 - 11 mmol/L [facility] A/G Ratio 1.1 0.8 - 2.0 ratio [facility] Specimen Blood - Blood specimen (specimen) Performing Organization Address City/[facility]/Zipcode Phone Number [facility] [address] [place] [address] DIABETES OPH EXAM (06/08/2019) Pathologist [facility] OPHTHALMOLOGY Retinopathy (A) No retinopathy [facility] EXAM POCT Performing Organization Address City/[facility] Phone Number [facility] POCT [address] [place] [address] documented in this encounter Visit Diagnoses Diagnosis Diabetic ulcer of toe of left foot associated with type 2 diabetes mellitus, with fat layer exposed (HCC) - Primary B12 deficiency Other B-complex deficiencies Essential hypertension Unspecified essential hypertension documented in this encounter Insurance Payer Benefit Plan / Subscriber ID Effective Dates Phone Address Type Group [employer] [id number] 2014-Present [employer] Name Account Type Relation to Date of Phone Billing Patient Address Radha Mckinney Personal/Family [address] (Home) [address] [phone] [place], [place] (Work) [id number] documented as of this encounter
[2019-08-08] MEDS ORDERED: Ondansetron INJ* 2 MG/ML VIAL IV ONE ×2 (18:41→20:44)
[2019-08-08] MEDS ORDERED: Morphine 4 MG/ML VIAL (1 ml) 4 MG/ML VIAL IV ONE ×3 (18:41→22:25)
[2019-08-08] MEDS ORDERED: Acetaminophen TAB* 325 MG PO PRN (19:38)
[2019-08-08 19:50] LABS: ABS Basophils 0.1 10^3/ul (0-0.2); ABS Eosinophils 0.3 10^3/ul (0-0.6); ABS Lymphocytes 1.1 10^3/ul (1.0-4.8); ABS Monocytes 0.5 10^3/ul (0-0.8); ABS Neutrophils 8.5 10^3/ul (1.5-7.7); Eosinophil % 2.5 %; Hematocrit 34 % (35-47); Hemoglobin 11.8 g/dL (12.0-16.0); Lymphocyte % 10.9 %; Mean Corpuscular HGB Conc 35 g/dL (31-36); Mean Corpuscular Hemoglobin 34 pg (27-31); Mean Corpuscular Volume 97 fL (80-97); Mean Platelet Volume 8.1 fL (7.4-10.4); Platelet Count 134 10^3/uL (150-450); Red Blood Count 3.51 10^6 /uL (3.70-4.87); Red Cell Distribution Width 16 % (10-15); White Blood Count 10.5 10^3/uL (3.5-10.8)
[2019-08-08 19:56] LABS: INR 0.98 (0.82-1.09)
[2019-08-08 20:09] LABS: BUN/Creatinine Ratio 27.8 (8-20); Calcium 9.4 mg/dL (8.6-10.3); EGFR African American 50.5 (>60); EGFR Non-African American 41.7 (>60)
[2019-08-08 20:20] LABS: Potassium 5.7 mmol/L (3.5-5.0)
[2019-08-08] MEDS ORDERED: Dextrose 50% VIAL 50 ml IV PUSH PRN (20:45)
[2019-08-08] MEDS ORDERED: NS 0.9% 1000 ML** 1,000 ML IV SCH (21:15)
--- NOTE | 2019-08-08 23:34 | HP ---
CC: Dr. Alex; Dr. Wallis * HISTORY AND PHYSICAL: DATE OF ADMISSION: 08/08/19. PROVIDER: Meg Garcia NP. ATTENDING PHYSICIAN WHILE IN THE HOSPITAL: Dr. Isabel Blanchard * (dictated by Meg Garcia NP). CHIEF COMPLAINT: Fall, right hip pain. HISTORY OF PRESENT ILLNESS: Ms. Mckinney is a 73-year-old female with a past medical history significant for type 2 diabetes, hypertension, hyperlipidemia, history of left hip fracture, Parkinson's, and depression, who presented to the emergency room after a fall at home. The patient reports that she was walking up the stairs to go into her apartment when she lost her balance falling on her button. She denied any head injury, denies any neck pain. She denied any loss of consciousness, dizziness, due to the patient reports that she crawled and got pulled herself up into the chair and that she had pain in her hips, so she was brought to the emergency room for further evaluation. While in the emergency room, the patient had an x-ray of her hip, which showed a right subcapital fracture of the femoral neck. Due to her hip fracture, Hospital Medicine was asked to see and evaluate her for admission. The patient denies any chest pain or shortness of breath. Denies any loss of consciousness. Denies any neck pain. Denies any nausea, vomiting or diarrhea. Denies any fever or chills. Denies any urinary frequency, urgency or pain with urination. Denies any weakness or sensory loss. Denies any rashes, lesions or open sores, psychosis or anxiety. Due to her right hip fracture, she will be admitted under observation. PAST MEDICAL HISTORY: 1. Type 2 diabetes. 2. Hypertension. 3. Hyperlipidemia. 4. History of left hip fracture. 5. Parkinson's. 6. Depression. PAST SURGICAL HISTORY: ORIF of left hip, ORIF of the right shoulder and humerus , angioplasty of the left leg on 12/01/18, and tonsillectomy. HOME MEDICATIONS: Include: 1. Valsartan/hydrochlorothiazide 160/12.5 one tablet p.o. daily. 2. Primidone 250 mg p.o. b.i.d. 3. Metformin 850 mg p.o. b.i.d. 4. Metoprolol 12.5 mg p.o. daily. 5. Lovastatin 40 mg at bedtime. 6. Vitamin B12 injection 1000 mcg q.2 months. 7. Clopidogrel 75 mg p.o. daily. 8. Wellbutrin 150 mg p.o. b.i.d. 9. Aspirin 81 mg p.o. daily. ALLERGIES: ATORVASTATIN. FAMILY HISTORY: Mother had lung cancer, at the age of 96 of old age. Father was a diabetic. Maternal grandmother with an SC. SOCIAL HISTORY: The patient reports she quit smoking in February of 2019. Prior to that, she smoked a half a pack to pack a day for 50 years. She used to drink 3 to 4 glasses of alcohol daily. She quit drinking appropriately 1 year ago. She denies any current alcohol use. Denies any illicit drug use. She is single. She lives alone. Surrogate decision maker in the event she is unable to make her own decision is her cousin, Ryan Putnam. REVIEW OF SYSTEMS: A 14-point review of systems was completed. All pertinent positives were mentioned in the HPI. PHYSICAL EXAMINATION GENERAL: At this time, Ms. Mckinney is a 73-year-old female. She is alert and oriented, resting on the stretcher in the emergency room. She is tearful and upset about her fall and broken hip. She is in no acute distress. VITAL SIGNS: Blood pressure 122/71, heart rate 88, respirations 16, O2 saturation 97%, temperature was 97.8. HEENT: Head is atraumatic, normocephalic. Eyes: EOMs are intact. Sclerae anicteric, and not pale. Oral mucosa appeared to be moist. NECK: Supple. No C-spine tenderness. LUNGS: Clear to auscultation bilaterally. No wheezes, rales or rhonchi. CARDIAC: S1, S2. Regular rate and rhythm. No murmurs, rubs or gallops ABDOMEN: Soft and nontender. Bowel sounds are present x4. EXTREMITIES: She is able to move all 4 extremities. There is no clubbing or cyanosis. Pedal pulses are +2 bilaterally. NEUROLOGIC: She is awake, alert, oriented x3. There is no gross focal deficits. SKIN: Grossly intact. DIAGNOSTIC STUDIES/LAB DATA: WBCs are 10.5, RBCs 3.51, hemoglobin 11.8, hematocrit 34, platelet count 134. INR 0.98. Sodium 140, potassium 5.7, chloride 105, carbon dioxide was 28, anion gap was 7, BUN 35, creatinine 1.26, calcium was 9.4. TSH is pending. She had a hip and pelvis x-ray. Radiologist impression: Right subcapital femoral neck fracture impacted. She had electrocardiogram, which showed sinus rhythm at a rate of 91 with a right bundle-branch block consistent with prior EKGs. No ST or T wave changes. ASSESSMENT AND PLAN: Ms. Mckinney is a 73-year-old female with a past medical history significant for diabetes, high blood pressure, hyperlipidemia, Parkinson 's, and depression, who presented to the emergency room with complaints of right hip pain after a fall. She was found to have subcapital impacted right hip fracture. She will be admitted inpatient for: 1. Fall/Right hip fracture. This is a mechanical fall. The patient reports she lost her balance and fell sustaining a right subcapital hip fracture. I did speak to Dr. Wallis from Orthopedics, who will see and evaluate the patient in the morning. She will be n.p.o. after midnight for possible pinning in the OR. The patient reports that she is able to walk up stairs and carry in her groceries without the development of chest pain. She denies any associated shortness of breath with activity or chest pain with activity. She has an RCRI score of 0 giving her 3.9%, 30-day risk of , SC or cardiac arrest. The patient does have an elevated potassium level of 5.7. We will give her IV fluids of overnight and repeat a BMP in the a.m. 2. Hyperkalemia. The patient will have normal saline IV at 75 cc per hour. We will repeat a BMP in the a.m. I suspect this is related to her valsartan/ hydrochlorothiazide in combination with being a diabetic and chronic renal insufficiency. 3. Chronic kidney disease. The patient does have an elevated BUN and creatinine, which is at her baseline. We will continue to monitor her BUN and creatinine. Avoid nephrotoxic medications. 4. Diabetes. I will hold her metformin and I will place her on lispro sliding scale with Accu-Cheks a.c. 5. Hypertension. I will hold her valsartan/hydrochlorothiazide. I will continue her on metoprolol 12.5 mg p.o. daily. 6. Hyperlipidemia. She can continue lovastatin as previously prescribed. 7. FEN. She can have a regular diet. She will be n.p.o. after midnight for possible OR in the morning. 8. DVT prophylaxis. I will place her on SCDs as the patient will be going to the OR in the a.m. 9. Peripheral vascular disease. The patient has been seen by Dr. Maddox. She had an angioplasty of the left leg in November of 2018. At that time, she was placed on Plavix 75 mg po daily for 3 months and she will be on lifetime aspirin 81 mg p.o. daily. I will hold her Plavix at this time, for possible OR in the a.m. TIME SPENT: Time spent on this admission was 60 minutes, greater than half that time was spent at the bedside reviewing events leading thus far to her hospitalization, performing physical exam, and reviewing my plan of care. I have discussed this with my attending physician. MEG GARCIA, AMAURY [id number]/[facility] #: [id number]
[2019-08-09] MEDS: Primidone TAB(*) 250 MG PO SCH ×3 (00:04→21:03)
[2019-08-09] MEDS: Docusate CAP* 100 MG PO SCH ×3 (00:04→21:04)
[2019-08-09] MEDS: CMCS: Lovastatin (NF) 10 MG TAB PO SCH ×2 (00:04→21:02)
[2019-08-09] MEDS: buPROPion SR TAB.SR* 150 MG PO SCH ×4 (00:07→21:03)
[2019-08-09 01:10] LABS: Urine Appearance Clear; Urine Bilirubin Negative (Negative); Urine Blood Negative (Negative); Urine Color Yellow; Urine Glucose Negative (Negative); Urine Ketones Negative (Negative); Urine Nitrite Negative (Negative); Urine Protein Negative (Negative); Urine Specific Gravity 1.015 (1.010-1.030); Urine Urobilinogen Negative (Negative)
[2019-08-09] MEDS: Acetaminophen TAB* 325 MG PO SCH ×4 (01:15→21:05)
[2019-08-09 02:09] LABS: Urine Appearance Clear; Urine Bilirubin Negative (Negative); Urine Blood Negative (Negative); Urine Color Yellow; Urine Glucose Negative (Negative); Urine Ketones Negative (Negative); Urine Nitrite Negative (Negative); Urine Protein Negative (Negative); Urine Specific Gravity 1.014 (1.010-1.030); Urine Urobilinogen Negative (Negative)
--- NOTE | 2019-08-09 04:30 | HP ---
H&P (Free Text) History and Physical: Orthopedic Surgery Consultation H&P Date: 08/09/2019 Requesting Service: ER and hospitalist medicine Chief Complaint: Right hip pain. History: A 73-year-old female who sustained a mechanical fall while walking up the front stairs at her apartment. She denies head strike or LOC. Endorses isolated right hip pain. Denies any prior problems with the right hip. He does have a history of a left hip fracture treated with a hemiarthroplasty in 2016. She does not use any assistive ambulatory devices at baseline. The pain is located at the right hip and is constant, moderate, sharp. Pain worse with hip ROM and lessened when rested. Review of Systems: Negative for fever, recent visual changes, difficulty swallowing, chest pain, shortness of breath, abdominal pain, hematuria, easy bruising, diffuse weakness or lack of coordination, and diffuse rash. PMH: Type 2 diabetes, hypertension, hyperlipidemia, Parkinson's, depression PSH: Left hip hemiarthroplasty, right proximal humerus ORIF, left lower extremity angioplasty, tonsillectomy Medications: Valsartan/hydrochlorothiazide, primidone, metformin, metoprolol, lovastatin, Plavix, vitamin B12, baby aspirin Allergies: Atorvastatin SH: Recently quit smoking. Drinks 3-4 glasses of alcohol daily. She lives alone in an apartment. FH: Cancer, diabetes, CAD Physical Examination: Constitutional: Temp Pulse Resp BP Pulse Ox 99.2 F 99 16 100/57 96 08/09/19 04:13 08/09/19 04:13 08/09/19 04:13 08/09/19 04:13 08/09/19 04:13 General appearance is healthy and non-septic in no acute distress. Cardiovascular: Pulse examination demonstrates positive pedal pulses with brisk capillary refill. There are no varicosities. Abdomen: Soft and nontender Lymphatic: No lymphadenopathy appreciated. Skin: Bilateral upper and lower extremity examination demonstrates no ulcerative lesions. Psychiatric / Neurological: Appropriate affect. Alert and oriented to person, place and time. There is no significant abnormality in coordination appreciated. Normoreflexive deep tendon reflex of the affected extremity. Musculoskeletal: Bilateral upper extremities and contralateral lower extremity show full range of motion with no evidence of instability and no tenderness with palpation and 5 /5 strength. There is no gross deformity. RLE: Skin intact 5/5 motor strength distally with intact sensation to light touch There is no global swelling, edema, or varicosities. Pain with logroll and heel strike No TTP at knee, lower leg, ankle, foot Palpable DP pulse. Flexes and extends ankle and toes. Imaging: X-rays were obtained, and independently interpreted and shows a right valgus impacted subcapital femoral neck fracture. Left hemiarthroplasty without obvious complication. Labs: WBC 10.5 HCT 34 Platelets 134 Cr 1.26 INR 0.98 UA negative Impression and Plan: 73-year-old woman status post mechanical fall with a right valgus impacted femoral neck fracture. We discussed both nonoperative and operative treatment options. My recommendation is surgical intervention when medically cleared with closed reduction and placement of percutaneous screws. We discussed the risks/ benefits and pros/cons of both options. After this discussion, we came to the decision that we would move forward with surgery. For now, nonweightbearing in the affected extremity. NPO. Appreciate medical clearance. I recommend chemical and mechanical DVT prophylaxis. Rony Wallis MD
[2019-08-09] MEDS: Morphine INJ* 4 MG/ML 1 ML SYRINGE (NEW SYRINGE VERSION) IV PRN ×2 (05:23→12:26)
[2019-08-09 06:27] LABS: ABS Basophils 0.1 10^3/ul (0-0.2); ABS Eosinophils 0.1 10^3/ul (0-0.6); ABS Lymphocytes 1.3 10^3/ul (1.0-4.8); ABS Monocytes 0.7 10^3/ul (0-0.8); ABS Neutrophils 5.8 10^3/ul (1.5-7.7); Eosinophil % 1.3 %; Hematocrit 31 % (35-47); Lymphocyte % 16.9 %; Mean Corpuscular HGB Conc 35 g/dL (31-36); Mean Corpuscular Hemoglobin 34 pg (27-31); Mean Corpuscular Volume 97 fL (80-97); Mean Platelet Volume 7.9 fL (7.4-10.4); Platelet Count 121 10^3/uL (150-450); Red Blood Count 3.23 10^6 /uL (3.70-4.87); Red Cell Distribution Width 15 % (10-15)
[2019-08-09 06:43] LABS: BUN/Creatinine Ratio 25.2 (8-20); Calcium 8.6 mg/dL (8.6-10.3); EGFR African American 45.1 (>60); EGFR Non-African American 37.3 (>60)
[2019-08-09 06:45] LABS: Potassium 5.1 mmol/L (3.5-5.0)
[2019-08-09 07:31] LABS: TSH (Thyroid Stimulating Horm) 6.54 mcIU/mL (0.34-5.60)
[2019-08-09] MEDS: Calcium/Vitamin D TAB 250/125* TAB PO SCH (08:48)
[2019-08-09] MEDS: Metoprolol Succinate XL TAB* 25 MG PO SCH ×2 (08:48→12:25)
--- NOTE | 2019-08-09 10:40 | PN ---
Subjective Date of Service: 08/09/19 Interval History: Labs reviewed - TSH is mildly elevated Patient denies chest pain or shortness of breath. Denies abd pain, n/v/d. Denies fever or chills. Reports right hip pain is mild and controlled with pain medications Will go to the OR tomorrow for repair Family History: Unchanged from Admission Social History: Unchanged from Admission Past Medical History: Unchanged from Admission Objective Active Medications: Acetaminophen (Tylenol Tab*) 650 mg PO Q4H PRN PRN Reason: MILD PAIN or TEMP > 100.4 Acetaminophen (Tylenol Tab*) 975 mg PO TID [facility] Last Admin: 08/09/19 08:47 Dose: Not Given Bupropion HCl (Wellbutrin Sr Tab*) 150 mg PO BID [facility] Last Admin: 08/09/19 08:48 Dose: Not Given Calcium/Vitamin D (Oscal D Tab 250/125*) 2 tab PO DAILY [facility] Last Admin: 08/09/19 08:48 Dose: Not Given Dextrose (Dextrose 50% Vial 50 Ml*) 25 ml IV PUSH .FOR FS < 60 - SS PRN PRN Reason: FS < 60 Docusate Sodium (Colace Cap*) 100 mg PO BID [facility] Last Admin: 08/09/19 08:48 Dose: Not Given Heparin Sodium (Porcine) (Heparin Vial(*)) 5,000 units SUBCUT Q12H [facility] Stop: 08/09/19 23:59 Sodium Chloride (Ns 0.9% 1000 Ml) 1,000 mls @ 75 mls/hr IV PER RATE [facility] Stop: 08/09/19 10:34 Last Admin: 08/08/19 23:11 Dose: 75 mls/hr Insulin Human Lispro (Humalog*) 0 units SUBCUT AC [facility]; Protocol Lovastatin (Mevacor (Nf)) 40 mg PO BEDTIME [facility]; Protocol Last Admin: 08/09/19 00:04 Dose: 40 mg Magnesium Hydroxide (Milk Of Magnesia Liq*) 30 ml PO BID PRN PRN Reason: CONSTIPATION Metoprolol Succinate (Toprol Xl Tab*) 12.5 mg PO DAILY [facility] Last Admin: 08/09/19 08:48 Dose: Not Given Morphine Sulfate (Morphine Inj (Syringe)*) 4 mg IV Q6H PRN PRN Reason: PAIN - SEVERE Last Admin: 08/09/19 05:23 Dose: 4 mg Polyethylene Glycol/Electrolytes (Miralax*) 17 gm PO DAILY PRN PRN Reason: CONSTIPATION Primidone (Mysoline Tab(*)) 250 mg PO BID [place] Last Admin: 08/09/19 08:48 Dose: Not Given Senna (Senokot 8.6 Mg Tab*) 1 tab PO BEDTIME PRN PRN Reason: CONSTIPATION Vital Signs - 8 hr 08/09/19 08/09/19 08/09/19 04:13 05:23 06:36 Temperature 99.2 F Pulse Rate 99 Respiratory 16 18 16 Rate Blood Pressure 100/57 (mmHg) O2 Sat by Pulse 96 Oximetry 08/09/19 08/09/19 08/09/19 07:32 08:37 08:42 Temperature 98.6 F Pulse Rate 99 Respiratory 14 14 14 Rate Blood Pressure 102/60 (mmHg) O2 Sat by Pulse 95 Oximetry 08/09/19 09:31 Temperature Pulse Rate 76 Respiratory 22 Rate Blood Pressure 126/68 (mmHg) O2 Sat by Pulse Oximetry Oxygen Devices in Use Now: None Appearance: appears comfortable resting in bed, no acute distress Eyes: No Scleral Icterus Ears/Nose/Mouth/Throat: Clear Oropharnyx, Mucous Membranes Moist Neck: NL Appearance and Movements; NL JVP, Trachea Midline Respiratory: Symmetrical Chest Expansion and Respiratory Effort, Clear to Auscultation Cardiovascular: NL Sounds; No Murmurs; No JVD, No Edema Abdominal: NL Sounds; No Tenderness; No Distention Extremities: No Edema, No Clubbing, Cyanosis Skin: No Rash or Ulcers, No Nodules or Sclerosis Neurological: Alert and Oriented x 3 Nutrition: Taking PO's Result Diagrams: 08/10/19 05:46 08/10/19 05:46 Microbiology and Other Data: Microbiology 08/08/19 21:51 Nasal Screen MRSA (PCR) - Final Nasal Mrsa Not Detected Assess/Plan/Problems-Billing Assessment: Ms. Mckinney is a 73 y.o female who has a hx of Dm, HTN, HLD who presented to the emergency room with right hip pain after a fall. - Patient Problems (1) Closed right hip fracture Current Visit: Yes Status: Acute Code(s): S72.001A - FRACTURE OF UNSP PART OF NECK OF RIGHT FEMUR, INIT SNOMED Code(s): 980201409 Comment: Management per ortho -Will go to the OR tomorrow for repair. - pain management (2) HTN (hypertension) Current Visit: No Status: Acute Code(s): I10 - ESSENTIAL (PRIMARY) HYPERTENSION SNOMED Code(s): 93232016 Comment: Will hold the HCTZ and losartan for now - continue metoprolol. (3) Hyperlipidemia Current Visit: No Status: Acute Code(s): E78.5 - HYPERLIPIDEMIA, UNSPECIFIED SNOMED Code(s): 97990813 Comment: continue lovastatin (4) Type II diabetes mellitus Current Visit: No Status: Acute Comment: FS AC- lispro sliding scale - hold metformin (5) Thrombocytopenia Current Visit: Yes Status: Acute Code(s): D69.6 - THROMBOCYTOPENIA, UNSPECIFIED SNOMED Code(s): 734438576 Comment: plt count 107 today down from 134 on admission - will continue to monitor - plavix on hold for surgery - heparin for DVT prop [id number] (6) DVT prophylaxis Current Visit: No Status: Acute Code(s): EUL3312 - SNOMED Code(s): 957821066 Comment: - SCDs- continue SCd' s - will start heparin as per ortho, dosing Q12 hours (7) Full code status Current Visit: No Status: Acute Code(s): Z78.9 - OTHER SPECIFIED HEALTH STATUS SNOMED Code(s): 833774922 Status and Disposition: inpatient
[2019-08-09 12:18] LABS: Activated Partial Thrombo Time 16.6 seconds (26.0-38.0); INR 0.93 (0.82-1.09)
[2019-08-09 12:24] LABS: EGFR African American 45.1 (>60); EGFR Non-African American 37.3 (>60)
[2019-08-09] MEDS: Heparin VIAL(*) 5000 UNITS/ML VIAL (FIVE THOUSAND) SUBCUT SCH (12:25)
[2019-08-09] MEDS: Insulin LISPRO* 1 UNITS UNIT SUBCUT SCH ×2 (12:27→16:58)
[2019-08-09 12:51] LABS: Hematocrit 32 % (35-47); Mean Corpuscular HGB Conc 34 g/dL (31-36); Mean Corpuscular Hemoglobin 34 pg (27-31); Mean Corpuscular Volume 98 fL (80-97); Red Blood Count 3.26 10^6 /uL (3.70-4.87); Red Cell Distribution Width 15 % (10-15); White Blood Count 9.3 10^3/uL (3.5-10.8)
[2019-08-09 12:52] LABS: ABS Basophils 0.1 10^3/ul (0-0.2); ABS Eosinophils 0.1 10^3/ul (0-0.6); ABS Lymphocytes 1.3 10^3/ul (1.0-4.8); ABS Monocytes 0.7 10^3/ul (0-0.8); ABS Neutrophils 7.1 10^3/ul (1.5-7.7); Eosinophil % 1.2 %; Lymphocyte % 13.7 %; Platelet Count 107 10^3/uL (150-450)
[2019-08-09] MEDS ORDERED: Docusate CAP* 100 MG PO SCH (21:00)
[2019-08-10] MEDS: Heparin VIAL(*) 5000 UNITS/ML VIAL (FIVE THOUSAND) SUBCUT SCH (00:30)
[2019-08-10] MEDS ORDERED: DiMENhydriNATE IV* 50 MG/ML VIAL IV PUSH PRN (06:06)
[2019-08-10] MEDS ORDERED: HYDROmorphone INJ1* 1 MG/ML SYRINGE IV PRN (06:06)
[2019-08-10] MEDS ORDERED: fentaNYL* 50 MCG/ML 2 ML VIAL (100 MCG VIAL) IV PRN (06:06)
[2019-08-10] MEDS ORDERED: Naloxone* 0.4 MG/ML 1 ML VIAL IV PRN (06:06)
[2019-08-10] MEDS ORDERED: oxyCODONE/Acetamin 5/325 MG* TAB PO PRN (06:06)
[2019-08-10] MEDS ORDERED: PROCHLORPERAZINE INJ 5 MG/ML 2 ML VIAL IV PRN (06:06)
[2019-08-10 06:14] LABS: Hematocrit 31 % (35-47); Hemoglobin 10.7 g/dL (12.0-16.0); Mean Corpuscular HGB Conc 35 g/dL (31-36); Mean Corpuscular Hemoglobin 34 pg (27-31); Mean Corpuscular Volume 98 fL (80-97); Mean Platelet Volume 8.2 fL (7.4-10.4); Platelet Count 108 10^3/uL (150-450); Red Blood Count 3.15 10^6 /uL (3.70-4.87); Red Cell Distribution Width 16 % (10-15); White Blood Count 6.5 10^3/uL (3.5-10.8)
[2019-08-10 06:15] LABS: INR 1.01 (0.82-1.09)
[2019-08-10 06:26] LABS: BUN/Creatinine Ratio 22.8 (8-20); Calcium 8.8 mg/dL (8.6-10.3); EGFR Non-African American 35.5 (>60); Potassium 4.7 mmol/L (3.5-5.0)
[2019-08-10] MEDS: Morphine INJ* 4 MG/ML 1 ML SYRINGE (NEW SYRINGE VERSION) IV PRN (07:15)
[2019-08-10] MEDS: Insulin LISPRO* 1 UNITS UNIT SUBCUT SCH ×3 (07:30→18:04)
[2019-08-10] MEDS ORDERED: Famotidine IV* 10 MG/ML 2 ML (20 mg) IV ONE (08:00)
[2019-08-10] MEDS: buPROPion SR TAB.SR* 150 MG PO SCH ×2 (08:19→21:33)
[2019-08-10] MEDS: Metoprolol Succinate XL TAB* 25 MG PO SCH (08:20)
[2019-08-10] MEDS: Primidone TAB(*) 250 MG PO SCH ×2 (08:22→21:33)
[2019-08-10] MEDS: Acetaminophen TAB* 325 MG PO SCH ×3 (08:25→21:32)
[2019-08-10] MEDS: Docusate CAP* 100 MG PO SCH ×2 (08:30→21:33)
[2019-08-10] MEDS: Calcium/Vitamin D TAB 250/125* TAB PO SCH (08:33)
[2019-08-10] MEDS ORDERED: NS 0.9% 1000 ML** 1,000 ML IV SCH (09:15)
[2019-08-10] MEDS: NS 0.9% 1000 ML** 1,000 ML IV SCH ×2 (09:32→22:51)
--- NOTE | 2019-08-10 10:58 | PN ---
Subjective Date of Service: 08/10/19 Interval History: No complaints overnight Mancini feel out yesterday evening unable to place new catheter, voiding without difficulty. Denies chest pain or shortness of breath. denies abd pain n/v/d. denies fever or chills Pending surgery this afternoon. Family History: Unchanged from Admission Social History: Unchanged from Admission Past Medical History: Unchanged from Admission Objective Active Medications: Acetaminophen (Tylenol Tab*) 650 mg PO Q4H PRN PRN Reason: MILD PAIN or TEMP > 100.4 Acetaminophen (Tylenol Tab*) 975 mg PO TID [facility] Last Admin: 08/10/19 08:25 Dose: 975 mg Bupropion HCl (Wellbutrin Sr Tab*) 150 mg PO BID [facility] Last Admin: 08/10/19 08:19 Dose: 150 mg Calcium/Vitamin D (Oscal D Tab 250/125*) 2 tab PO DAILY [facility] Last Admin: 08/10/19 08:33 Dose: Not Given Dextrose (Dextrose 50% Vial 50 Ml*) 25 ml IV PUSH .FOR FS < 60 - SS PRN PRN Reason: FS < 60 Dimenhydrinate (Dramamine Iv*) 12.5 mg IV PUSH ONCE PRN PRN Reason: NAUSEA/VOMITING Docusate Sodium (Colace Cap*) 100 mg PO BID [facility] Last Admin: 08/10/19 08:30 Dose: 100 mg Fentanyl Citrate (Fentanyl*) 25 mcg IV Q5M PRN PRN Reason: PAIN - MODERATE Hydromorphone HCl (Dilaudid Inj1s*) 0.1 mg IV Q5M PRN PRN Reason: PAIN - SEVERE Sodium Chloride (Ns 0.9% 1000 Ml) 1,000 mls @ 125 mls/hr IV PER RATE [facility] Last Admin: 08/10/19 09:32 Dose: 125 mls/hr Insulin Human Lispro (Humalog*) 0 units SUBCUT AC [facility]; Protocol Last Admin: 08/10/19 07:30 Dose: Not Given Lovastatin (Mevacor (Nf)) 40 mg PO BEDTIME [facility]; Protocol Last Admin: 08/09/19 21:02 Dose: 40 mg Magnesium Hydroxide (Milk Of Magnesia Liq*) 30 ml PO BID PRN PRN Reason: CONSTIPATION Metoprolol Succinate (Toprol Xl Tab*) 12.5 mg PO DAILY [facility] Last Admin: 08/10/19 08:20 Dose: 12.5 mg Morphine Sulfate (Morphine Inj (Syringe)*) 4 mg IV Q6H PRN PRN Reason: PAIN - SEVERE Last Admin: 08/10/19 07:15 Dose: 4 mg Naloxone HCl (Narcan*) 0.08 mg IV Q2M PRN PRN Reason: severe induced resp depression Oxycodone/Acetaminophen (Percocet 5/325 Tab*) 1 tab PO ONCE PRN PRN Reason: PAIN - MODERATE Polyethylene Glycol/Electrolytes (Miralax*) 17 gm PO DAILY PRN PRN Reason: CONSTIPATION Primidone (Mysoline Tab(*)) 250 mg PO BID [facility] Last Admin: 08/10/19 08:22 Dose: 250 mg Prochlorperazine Edisylate (Compazine Inj*) 2.5 mg IV ONCE PRN PRN Reason: NAUSEA/VOMITING Senna (Senokot 8.6 Mg Tab*) 1 tab PO BEDTIME PRN PRN Reason: CONSTIPATION Vital Signs - 8 hr 08/10/19 08/10/19 08/10/19 03:21 07:15 08:00 Temperature 98 F 99.0 F Pulse Rate 86 90 Respiratory 16 18 15 Rate Blood Pressure 128/55 120/58 (mmHg) O2 Sat by Pulse 96 95 Oximetry 08/10/19 08/10/19 08:05 08:45 Temperature 98.5 F Pulse Rate 97 Respiratory 16 16 Rate Blood Pressure 134/63 (mmHg) O2 Sat by Pulse 95 Oximetry Oxygen Devices in Use Now: None Appearance: appears comfortable resting in bed, no acute distess Eyes: No Scleral Icterus Ears/Nose/Mouth/Throat: NL Teeth, Lips, Gums, Mucous Membranes Moist Neck: NL Appearance and Movements; NL JVP, Trachea Midline Respiratory: Symmetrical Chest Expansion and Respiratory Effort, Clear to Auscultation Cardiovascular: NL Sounds; No Murmurs; No JVD, No Edema Abdominal: NL Sounds; No Tenderness; No Distention Extremities: No Edema, No Clubbing, Cyanosis Skin: No Rash or Ulcers, - - abrasion to right knee, minimal amount of redness Neurological: Alert and Oriented x 3 Nutrition: Taking PO's Result Diagrams: 08/10/19 05:46 08/10/19 05:46 Microbiology and Other Data: Microbiology 11/12/19 21:51 Nasal Screen MRSA (PCR) - Final Nasal Mrsa Not Detected Assess/Plan/Problems-Billing Assessment: Ms. Mckinney is a 73 y.o female who has a hx of Dm, HTN, HLD who presented to the emergency room with right hip pain after a fall. - Patient Problems (1) Closed right hip fracture Current Visit: Yes Status: Acute Code(s): S72.001A - FRACTURE OF UNSP PART OF NECK OF RIGHT FEMUR, INIT SNOMED Code(s): 047215328 Comment: Management per ortho -Will go to the OR today for repair. - continue with current pain management - bowel medications as needed for constipation (2) HTN (hypertension) Current Visit: No Status: Acute Code(s): I10 - ESSENTIAL (PRIMARY) HYPERTENSION SNOMED Code(s): 87860698 Comment: Will hold the HCTZ and losartan for now - continue metoprolol. (3) Hyperlipidemia Current Visit: No Status: Acute Code(s): E78.5 - HYPERLIPIDEMIA, UNSPECIFIED SNOMED Code(s): 43841977 Comment: continue lovastatin (4) Type II diabetes mellitus Current Visit: No Status: Acute Comment: FS AC- lispro sliding scale - hold metformin (5) Thrombocytopenia Current Visit: Yes Status: Acute Code(s): D69.6 - THROMBOCYTOPENIA, UNSPECIFIED SNOMED Code(s): 779104200 Comment: plt count 108 today down from 134 on admission - will continue to monitor - plavix on hold for surgery - heparin for DVT prop [id number] (6) DVT prophylaxis Current Visit: No Status: Acute Code(s): OLY8134 - SNOMED Code(s): 467991936 Comment: - SCDs- continue SCd' s - will start heparin as per ortho, dosing Q12 hours (7) Full code status Current Visit: No Status: Acute Code(s): Z78.9 - OTHER SPECIFIED HEALTH STATUS SNOMED Code(s): 598386107 Status and Disposition: inpatient
[2019-08-10] MEDS ORDERED: ceFAZolin 2 GM in NS PREMIX(*) 2 GM/100 ML BAG IVPB ONE (13:10)
[2019-08-10] MEDS ORDERED: Famotidine IV* 10 MG/ML 2 ML (20 mg) ONE (15:06)
[2019-08-10] MEDS ORDERED: fentaNYL* 50 MCG/ML 2 ML VIAL (100 MCG VIAL) ONE ×2 (15:15→17:32)
[2019-08-10] MEDS ORDERED: KETAMINE HCL* 50 MG/ML 10 ML VIAL ONE (15:15)
[2019-08-10] MEDS ORDERED: Midazolam* 1 MG/ML 2 ML VIAL (2 MG) ONE (15:15)
[2019-08-10] MEDS ORDERED: Bupivacaine 0.5%* 50 ML MDV VIAL ONE (16:16)
[2019-08-10] MEDS ORDERED: Propofol* 10 MG/ML 20 ML BTL ONE (16:41)
[2019-08-10] MEDS ORDERED: Phenylephrine 40 MCG/ML SYRINGE ONE (16:41)
[2019-08-10] MEDS ORDERED: Lidocaine 2% PF * 5 ML VIAL ONE (16:41)
[2019-08-10] MEDS ORDERED: Flumazenil* 0.1 MG/ML 5 ML MDV ONE (16:41)
[2019-08-10] MEDS ORDERED: Dexamethasone IV* 4 MG/ML 1 ML (4 MG) ONE (16:42)
[2019-08-10] MEDS ORDERED: Ondansetron INJ* 2 MG/ML VIAL ONE (16:42)
--- NOTE | 2019-08-10 16:43 | OP ---
Operative Report - Blank - Operative Report Date of Operation: 08/10/19 Note: PATIENT: Radha Mckinney DATE OF : 1945 DATE OF SURGERY: 08/10/2019 SURGEON: Rony Wallis MD EXPERIMENTAL WELDER: JENN Wylie, whos assistance was necessary for positioning, retraction, help with instrumentation, and closure. ANESTHESIOLOGIST: Dr. Anna PREOPERATIVE DIAGNOSIS: Right valgus impacted femoral neck hip fracture. POSTOPERATIVE DIAGNOSIS: Right valgus impacted femoral neck hip fracture. PROCEDURE: Closed reduction and internal fixation of the right femoral neck hip fracture with cannulated screws. ANESTHESIA: GETA IMPLANTS: Three Synthes 7.3mm cannulated screws ESTIMATED BLOOD LOSS: 25cc SPECIMENS: None. DRAIN: None TOURNIQUET TIME: None. COMPLICATIONS: None. STATUS: Stable from the operating room to the recovery room and then readmitted to the floor. INDICATIONS FOR PROCEDURE: Radha sustained a fall with the above-mentioned injury. Both operative and non operative treatment alternatives were reviewed. Further, the nature and risks of surgery were reviewed in careful detail. Our discussions regarding the risks of surgery included, but were not limited to, bleeding, need for blood transfusion, infection, wound problems, malunion, nonunion, AVN, nerve injury, neuroma, RSD, persistent symptoms, need for further surgery and even the remote chance of catastrophic complication, including loss of limb or . DESCRIPTION OF PROCEDURE: The patient was seen in the preoperative holding unit and informed written consent was obtained. The appropriate extremity was marked. The patient was then brought to the operating room anesthesia was induced. The patient was then carefully positioned on the fracture table and all bony prominences were padded with great care. We fluoroscopically assessed the fracture. A chlorhexidine-based pre-scrub was performed followed by prep and drape in standard sterile fashion with ChloraPrep. A surgical safety pause was then conducted in which we confirmed the appropriate patient, extremity, planned procedure, availability of equipment, indication and administration of prophylactic antibiotics, and DVT prophylaxis in the form of a compression boot on the non-surgical extremity. I utilized fluoroscopy to nusrat out my lateral hip incision. An approximately 3 cm longitudinal incision was made. I incised through the iliotibial band to get down to the lateral femur. I used fluoroscopy to drive a guidewire up the inferior aspect of the femoral neck. Placement of the guidewire was confirmed on both AP and lateral views. I then utilized a parallel aiming guide to place 2 more guidewires superiorly up the femoral neck, anteriorly and posteriorly. The length and placement of the wires were confirmed on both AP and lateral fluoroscopic views. The length of the wires were measured with a depth gauge. The outer cortex of the femur was then over-drilled for the 3 wires. Three Synthes 7.3 mm partially threaded cannulated screws were then placed over the guidewires into the proximal femur/hip. Final placement of the screws was then confirmed on AP and lateral fluoroscopic images. I irrigated copiously and closed in layers utilizing 0 Vicryl for the iliotibial band, 3-0 Monocryl, and evelia for the skin. A sterile dressing was then applied. At this point, the patient was carefully transitioned off of the fracture table and awakened from anesthesia. There were no complications. All needle and sponge counts were correct at the end of the case. ATTESTATION: I attest I was present and scrubbed and performed the critical parts of the procedure myself. POSTOPERATIVE PLAN: The patient will be admitted back to the medical service postoperatively and may be weightbearing as tolerated and will work with physical therapy. Chemical DVT prophylaxis is recommended for 1 month postoperatively.
[2019-08-10] MEDS: CMCS: Lovastatin (NF) 10 MG TAB PO SCH (21:33)
[2019-08-10] MEDS: Polyethylene Glycol 3350* 17 GM PACKET PO PRN (21:42)
[2019-08-10] MEDS: Senna TAB 8.6 mg* TAB PO PRN (21:42)
[2019-08-11] MEDS: ceFAZolin 1 GM* X 3 DOSES POST-OP Q8H (AddVan) IVPB SCH ×6 (00:21→15:41)
[2019-08-11] MEDS: oxyCODONE TAB* 5 MG TAB PO PRN (04:45)
[2019-08-11] MEDS: Insulin LISPRO* 1 UNITS UNIT SUBCUT SCH ×3 (07:29→16:50)
[2019-08-11] MEDS: Enoxaparin(*) 30 MG/0.3 ML SYR SUBCUT SCH (08:20)
[2019-08-11] MEDS: Docusate CAP* 100 MG PO SCH ×2 (08:20→22:02)
[2019-08-11] MEDS: buPROPion SR TAB.SR* 150 MG PO SCH ×2 (08:20→22:04)
[2019-08-11] MEDS: Primidone TAB(*) 250 MG PO SCH ×2 (08:20→22:02)
[2019-08-11] MEDS: Metoprolol Succinate XL TAB* 25 MG PO SCH (08:20)
[2019-08-11] MEDS: Calcium/Vitamin D TAB 250/125* TAB PO SCH (08:20)
[2019-08-11] MEDS: Acetaminophen TAB* 325 MG PO SCH ×3 (08:41→22:03)
--- NOTE | 2019-08-11 09:42 | PN ---
Subjective Date of Service: 08/11/19 Interval History: Patient seen and examined at bedside. Ms. Mckinney is a 73 yo female, s/p surgical repair of right hip fracture. She is seen sitting up in her chair this morning. Reports her pain is well controlled. She expresses anxiety over her discharge plan, stating she doesn't feel safe to go home at this time and thinks she needs more help with rehab. Would be open to [facility], dislikes [facility], unsure about [facility] [place]. Denies fever/chills, CP , SOB, abd pain, n/v. Tolerating PO. No other concerns. Family History: Unchanged from Admission Social History: Unchanged from Admission Past Medical History: Unchanged from Admission Objective Active Medications: Acetaminophen (Tylenol Tab*) 650 mg PO Q4H PRN PRN Reason: MILD PAIN or TEMP > 100.4 Acetaminophen (Tylenol Tab*) 975 mg PO TID [facility] Last Admin: 08/11/19 08:41 Dose: 975 mg Bupropion HCl (Wellbutrin Sr Tab*) 150 mg PO BID [facility] Last Admin: 08/11/19 08:20 Dose: 150 mg Calcium/Vitamin D (Oscal D Tab 250/125*) 2 tab PO DAILY [facility] Last Admin: 08/11/19 08:20 Dose: 2 tab Dextrose (Dextrose 50% Vial 50 Ml*) 25 ml IV PUSH .FOR FS < 60 - SS PRN PRN Reason: FS < 60 Docusate Sodium (Colace Cap*) 100 mg PO BID [facility] Last Admin: 08/11/19 08:20 Dose: 100 mg Enoxaparin Sodium (Lovenox(*)) 30 mg SUBCUT Q24H [facility] Last Admin: 08/11/19 08:20 Dose: 30 mg Sodium Chloride (Ns 0.9% 1000 Ml) 1,000 mls @ 125 mls/hr IV PER RATE [facility] Last Admin: 08/10/19 22:51 Dose: 125 mls/hr Cefazolin Sodium 1 gm/ Sodium (Chloride) 50 mls @ 200 mls/hr IVPB Q8H [facility] Stop: 08/11/19 16:14 Last Admin: 08/11/19 08:21 Dose: 200 mls/hr Insulin Human Lispro (Humalog*) 0 units SUBCUT [facility]; Protocol Last Admin: 08/11/19 07:29 Dose: Not Given Lovastatin (Mevacor (Nf)) 40 mg PO BEDTIME [facility]; Protocol Last Admin: 08/10/19 21:33 Dose: 40 mg Magnesium Hydroxide (Milk Of Magnbernabe Liq*) 30 ml PO BID PRN PRN Reason: CONSTIPATION Metoprolol Succinate (Toprol Xl Tab*) 12.5 mg PO DAILY [facility] Last Admin: 08/11/19 08:20 Dose: 12.5 mg Morphine Sulfate (Morphine Inj (Syringe)*) 4 mg IV Q6H PRN PRN Reason: PAIN - SEVERE Last Admin: 08/10/19 07:15 Dose: 4 mg Oxycodone HCl (Roxycodone Tab*) 5 mg PO Q4H PRN PRN Reason: PAIN - SEVERE Last Admin: 08/11/19 04:45 Dose: 5 mg Polyethylene Glycol/Electrolytes (Miralax*) 17 gm PO DAILY PRN PRN Reason: CONSTIPATION Last Admin: 08/10/19 21:42 Dose: 17 gm Primidone (Mysoline Tab(*)) 250 mg PO BID [facility] Last Admin: 08/11/19 08:20 Dose: 250 mg Senna (Senokot 8.6 Mg Tab*) 1 tab PO BEDTIME PRN PRN Reason: CONSTIPATION Last Admin: 08/10/19 21:42 Dose: 1 tab Vital Signs - 8 hr 08/11/19 08/11/19 08/11/19 03:18 04:45 07:29 Temperature 97.9 F Pulse Rate 83 Respiratory 17 16 16 Rate Blood Pressure 127/55 (mmHg) O2 Sat by Pulse 100 Oximetry 08/11/19 08:33 Temperature 99.2 F Pulse Rate 111 Respiratory 16 Rate Blood Pressure 104/50 (mmHg) O2 Sat by Pulse 97 Oximetry Oxygen Devices in Use Now: None Appearance: 73 yo female, OOB to chair, pleasant, conversive, NAD Eyes: No Scleral Icterus, PERRLA Ears/Nose/Mouth/Throat: Clear Oropharnyx, Mucous Membranes Moist Neck: NL Appearance and Movements; NL JVP Respiratory: Symmetrical Chest Expansion and Respiratory Effort, Clear to Auscultation Cardiovascular: NL Sounds; No Murmurs; No JVD, RRR Abdominal: NL Sounds; No Tenderness; No Distention Lymphatic: No Cervical Adenopathy Extremities: No Edema, No Clubbing, Cyanosis, - - DP 2+ and symmetric Skin: No Rash or Ulcers Neurological: Alert and Oriented x 3, NL Muscle Strength and Tone Lines/Tubes/Other Access: Clean, Dry and Intact Peripheral IV Nutrition: Taking PO's Result Diagrams: 08/10/19 05:46 08/10/19 05:46 Microbiology and Other Data: Microbiology 08/08/19 21:51 Nasal Screen MRSA (PCR) - Final Nasal Mrsa Not Detected Assess/Plan/Problems-Billing Assessment: Ms. Mckinney is a 73 y.o female with a PMH significant for DM, HTN, HLD who presented to the emergency room on 08/08/19 with right hip pain after a fall and was found to have a right femoral neck fracture. - Patient Problems (1) Closed right hip fracture Code(s): S72.001A - FRACTURE OF UNSP PART OF NECK OF RIGHT FEMUR, INIT Comment : POD #1, management per ortho Continue with pain management, bowel medications as needed for constipation PT/OT PMRU referral (2) HTN (hypertension) Code(s): I10 - ESSENTIAL (PRIMARY) HYPERTENSION Comment: Under good control, BP on the softer side Continue metoprolol Hold HCTZ and losartan; note creatinine mildly elevated, appears to have CKD at baseline Continue to follow BMP (3) Hyperlipidemia Code(s): E78.5 - HYPERLIPIDEMIA, UNSPECIFIED Comment: Continue lovastatin. (4) Type II diabetes mellitus Comment: Under good control FSBG AC- Lispro sliding scale Hold metformin; continue monitor renal function. (5) Thrombocytopenia Current Visit: Yes Status: Acute Code(s): D69.6 - THROMBOCYTOPENIA, UNSPECIFIED SNOMED Code(s): 998335516 Comment: Continue to follow CBC Clopidogrel on hold post operatively On Lovenox for DVT prophylaxis (6) DVT prophylaxis Code(s): KKY7306 - Comment: Per ortho SCDs and Lovenox 30 mg SQ (7) Full code status Code(s): Z78.9 - OTHER SPECIFIED HEALTH STATUS Status and Disposition: Inpatient. PMRU referral made today. Consider other [facility] options as well.
--- NOTE | 2019-08-11 11:14 | PN ---
Progress Note - Progress Note Date of Service: 08/11/19 SOAP: Subjective: Seen today sitting up in chair while having breakfast. Reports her pain is well controlled. She expresses anxiety over her discharge plan, stating she doesn't feel safe to go home at this time and thinks she needs more help with rehab. Would be open to [facility], dislikes [facility], unsure about [facility]. Denies fever/chills, CP, SOB, abd pain, n/v. Objective: [General: Pt is alert and oriented x3. NAD. MSK: Right hip dressing is c/d/i. Calves are soft and non tender. + df/pf. NVI. ] Vital Signs Temp 99.2 F 08/11/19 08:33 Pulse 111 08/11/19 08:33 Resp 16 08/11/19 08:33 BP 104/50 08/11/19 08:33 Pulse Ox 97 08/11/19 08:33 Intake & Output 08/10/19 08/11/19 08/11/19 18:59 06:59 18:59 Intake Total 265 1150 Output Total 550 600 200 Balance -285 550 -200 Weight 114 lb Intake: IV Fluids 265 600 NS (0.9%) 265 600 Oral 550 Output: Urine 550 600 200 Other: Estimated Void Small # Voids 1 Assessment: [Closed reduction and internal fixation of the right femoral neck hip fracture with cannulated screws. ] Plan: [Continue with PT, and current WB Current pain medication Will await placement at this point. ]
[2019-08-11] MEDS: NS 0.9% 1000 ML** 1,000 ML IV SCH (14:47)
[2019-08-11] MEDS: CMCS: Lovastatin (NF) 10 MG TAB PO SCH (22:04)
[2019-08-12] MEDS: NS 0.9% 1000 ML** 1,000 ML IV SCH (01:25)
[2019-08-12 04:48] LABS: ABS Eosinophils 0.2 10^3/ul (0-0.6); ABS Lymphocytes 1.1 10^3/ul (1.0-4.8); ABS Monocytes 0.4 10^3/ul (0-0.8); ABS Neutrophils 3.7 10^3/ul (1.5-7.7); Eosinophil % 4.4 %; Hematocrit 26 % (35-47); Hemoglobin 8.9 g/dL (12.0-16.0); Lymphocyte % 19.7 %; Mean Corpuscular HGB Conc 34 g/dL (31-36); Mean Corpuscular Hemoglobin 33 pg (27-31); Mean Corpuscular Volume 97 fL (80-97); Mean Platelet Volume 8.1 fL (7.4-10.4); Platelet Count 120 10^3/uL (150-450); Red Blood Count 2.67 10^6 /uL (3.70-4.87); Red Cell Distribution Width 16 % (10-15); White Blood Count 5.5 10^3/uL (3.5-10.8)
[2019-08-12 05:03] LABS: BUN/Creatinine Ratio 20.7 (8-20); Calcium 7.9 mg/dL (8.6-10.3); EGFR African American 52.9 (>60); EGFR Non-African American 43.7 (>60); Potassium 4.2 mmol/L (3.5-5.0)
[2019-08-12] MEDS: Insulin LISPRO* 1 UNITS UNIT SUBCUT SCH ×3 (08:35→18:17)
[2019-08-12] MEDS: Calcium/Vitamin D TAB 250/125* TAB PO SCH (08:40)
[2019-08-12] MEDS: Enoxaparin(*) 30 MG/0.3 ML SYR SUBCUT SCH (08:40)
[2019-08-12] MEDS: Docusate CAP* 100 MG PO SCH ×2 (08:40→21:12)
[2019-08-12] MEDS: buPROPion SR TAB.SR* 150 MG PO SCH ×2 (08:40→21:12)
[2019-08-12] MEDS: Primidone TAB(*) 250 MG PO SCH ×2 (08:41→21:15)
[2019-08-12] MEDS: Metoprolol Succinate XL TAB* 25 MG PO SCH (08:41)
[2019-08-12] MEDS: Acetaminophen TAB* 325 MG PO SCH ×3 (10:14→21:11)
--- NOTE | 2019-08-12 14:38 | PN ---
Progress Note - Progress Note Date of Service: 08/12/19 SOAP: Subjective: [Patient seen lying in bed. Patient states she feels well. She is awaiting placement, PMRU denied. Probably will go subacute on Wednesday. She denies any CP, SOB, f/c, n/v or calf pain. She has been doing well with PT. Pain is well controlled on meds. ] Objective: [General: NAD, A&Ox3 RLE: Dressing changed today, incision is C/D/I with no erythema, ecchymosis or swelling. Thigh soft and nontender. She is able to DF/PF ankle with 5/5 strength. Calf soft and nontender with no palpable cords. NVI distally. Assessment: [POD#2 right hip fx with cannulated screws] Plan: [Awaiting placement, probably will go subacute on Wednesday Continue PT/OT Continue pain meds as needed Continue Lovenox 30mg sq for DVT ppx Vital Signs Temp Pulse Resp BP Pulse Ox 98.3 F 84 16 134/63 99 08/12/19 11:25 08/12/19 11:25 08/12/19 11:25 08/12/19 11:25 08/12/19 11:25 Laboratory Last Values WBC 5.5 10^3/uL (3.5-10.8) 08/12/19 04:37 RBC 2.67 10^6 /uL (3.70-4.87) L 08/12/19 04:37 Hgb 8.9 g/dL (12.0-16.0) L 08/12/19 04:37 Hct 26 % (35-47) L 08/12/19 04:37 MCV 97 fL (80-97) 08/12/19 04:37 MCH 33 pg (27-31) H 08/12/19 04:37 MCHC 34 g/dL (31-36) 08/12/19 04:37 RDW 16 % (10-15) H 08/12/19 04:37 Plt Count 120 10^3/uL (150-450) L 08/12/19 04:37 MPV 8.1 fL (7.4-10.4) 08/12/19 04:37 Neut % (Auto) 67.0 % 08/12/19 04:37 Lymph % (Auto) 19.7 % 08/12/19 04:37 [place] % (Auto) 8.1 % 08/12/19 04:37 Eos % (Auto) 4.4 % 08/12/19 04:37 Baso % (Auto) 0.8 % 08/12/19 04:37 Absolute Neuts (auto) 3.7 10^3/ul (1.5-7.7) 08/12/19 04:37 Absolute Lymphs (auto) 1.1 10^3/ul (1.0-4.8) 08/12/19 04:37 Absolute Monos (auto) 0.4 10^3/ul (0-0.8) 08/12/19 04:37 Absolute Eos (auto) 0.2 10^3/ul (0-0.6) 08/12/19 04:37 Absolute Basos (auto) 0.0 10^3/ul (0-0.2) 08/12/19 04:37 Absolute Nucleated RBC 0.0 10^3/ul 08/12/19 04:37 Nucleated RBC % 0.0 08/12/19 04:37 INR (Anticoag Therapy) 1.01 (0.82-1.09) 08/10/19 05:46 APTT 16.6 seconds (26.0-38.0) L 08/09/19 11:55 Sodium 139 mmol/L (135-145) 08/12/19 04:37 Potassium 4.2 mmol/L (3.5-5.0) 08/12/19 04:37 Chloride 109 mmol/L (101-111) 08/12/19 04:37 Carbon Dioxide 24 mmol/L (22-32) 08/12/19 04:37 Anion Gap 6 mmol/L (2-11) 08/12/19 04:37 BUN 25 mg/dL (6-24) H 08/12/19 04:37 Creatinine 1.21 mg/dL (0.51-0.95) H 08/12/19 04:37 Est GFR ( Amer) 52.9 (>60) 08/12/19 04:37 Est GFR (Non-Af Amer) 43.7 (>60) 08/12/19 04:37 BUN/Creatinine Ratio 20.7 (8-20) H 08/12/19 04:37 Glucose 101 mg/dL (70-100) H 08/12/19 04:37 POC Glucose (mg/dL) 122 mg/dL (70-100) H 08/12/19 08:15 Calcium 7.9 mg/dL (8.6-10.3) L 08/12/19 04:37 TSH 6.54 mcIU/mL (0.34-5.60) H 08/09/19 06:14 Urine Color Yellow 08/09/19 01:55 Urine Appearance Clear 08/09/19 01:55 Urine pH 7.0 (5-9) 08/09/19 01:55 Ur Specific [place] 1.014 (1.010-1.030) 08/09/19 01:55 Urine Protein Negative (Negative) 08/09/19 01:55 Urine Ketones Negative (Negative) 08/09/19 01:55 Urine Blood Negative (Negative) 08/09/19 01:55 Urine Nitrate Negative (Negative) 08/09/19 01:55 Urine Bilirubin Negative (Negative) 08/09/19 01:55 Urine Urobilinogen Negative (Negative) 08/09/19 01:55 Ur Leukocyte Esterase Negative (Negative) 08/09/19 01:55 Urine Glucose Negative (Negative) 08/09/19 01:55 Blood Type A Positive 08/10/19 05:46 Antibody Screen Negative 08/10/19 05:46 ]
--- NOTE | 2019-08-12 17:40 | PN ---
Subjective Date of Service: 08/12/19 Interval History: Patient seen and examined. No acute overnight events. Feeling well. States her hip feels sore when ambulating, but pain is tolerable. Dougie SOB, no chest pain , no abd pain, no fevers or chills. Family History: Unchanged from Admission Social History: Unchanged from Admission Past Medical History: Unchanged from Admission Objective Active Medications: Acetaminophen (Tylenol Tab*) 650 mg PO Q4H PRN PRN Reason: MILD PAIN or TEMP > 100.4 Last Admin: 08/11/19 17:42 Dose: 650 mg Acetaminophen (Tylenol Tab*) 975 mg PO TID [facility] Last Admin: 08/12/19 14:36 Dose: 975 mg Bupropion HCl (Wellbutrin Sr Tab*) 150 mg PO BID [facility] Last Admin: 08/12/19 08:40 Dose: 150 mg Calcium/Vitamin D (Oscal D Tab 250/125*) 2 tab PO DAILY [facility] Last Admin: 08/12/19 08:40 Dose: 2 tab Dextrose (Dextrose 50% Vial 50 Ml*) 25 ml IV PUSH .FOR FS < 60 - SS PRN PRN Reason: FS < 60 Docusate Sodium (Colace Cap*) 100 mg PO BID [facility] Last Admin: 08/12/19 08:40 Dose: 100 mg Enoxaparin Sodium (Lovenox(*)) 30 mg SUBCUT Q24H [facility] Last Admin: 08/12/19 08:40 Dose: 30 mg Insulin Human Lispro (Humalog*) 0 units SUBCUT AC [facility]; Protocol Last Admin: 08/12/19 13:35 Dose: 2 unit Lovastatin (Mevacor (Nf)) 40 mg PO BEDTIME [facility]; Protocol Last Admin: 08/11/19 22:04 Dose: 40 mg Magnesium Hydroxide (Milk Of Magnesia Liq*) 30 ml PO BID PRN PRN Reason: CONSTIPATION Metoprolol Succinate (Toprol Xl Tab*) 12.5 mg PO DAILY [facility] Last Admin: 08/12/19 08:41 Dose: 12.5 mg Morphine Sulfate (Morphine Inj (Syringe)*) 4 mg IV Q6H PRN PRN Reason: PAIN - SEVERE Last Admin: 08/10/19 07:15 Dose: 4 mg Oxycodone HCl (Roxycodone Tab*) 5 mg PO Q4H PRN PRN Reason: PAIN - SEVERE Last Admin: 08/11/19 04:45 Dose: 5 mg Polyethylene Glycol/Electrolytes (Miralax*) 17 gm PO DAILY PRN PRN Reason: CONSTIPATION Last Admin: 08/10/19 21:42 Dose: 17 gm Primidone (Mysoline Tab(*)) 250 mg PO BID [place] Last Admin: 08/12/19 08:41 Dose: 250 mg Senna (Senokot 8.6 Mg Tab*) 1 tab PO BEDTIME PRN PRN Reason: CONSTIPATION Last Admin: 08/10/19 21:42 Dose: 1 tab Vital Signs - 8 hr 08/12/19 08/12/19 11:25 15:34 Temperature 98.3 F 97.9 F Pulse Rate 84 98 Respiratory 16 18 Rate Blood Pressure 134/63 138/58 (mmHg) O2 Sat by Pulse 99 100 Oximetry Oxygen Devices in Use Now: None Appearance: alert, NAD Eyes: PERRLA Ears/Nose/Mouth/Throat: Mucous Membranes Moist Neck: NL Appearance and Movements; NL JVP Respiratory: Symmetrical Chest Expansion and Respiratory Effort, Clear to Auscultation Cardiovascular: NL Sounds; No Murmurs; No JVD, RRR, No Edema Abdominal: NL Sounds; No Tenderness; No Distention Extremities: No Edema, No Clubbing, Cyanosis Skin: No Rash or Ulcers, - - dressing CDI Neurological: Alert and Oriented x 3 Nutrition: Taking PO's Result Diagrams: 08/12/19 04:37 08/12/19 04:37 Microbiology and Other Data: Microbiology 08/08/19 21:51 Nasal Screen MRSA (PCR) - Final Nasal Mrsa Not Detected Assess/Plan/Problems-Billing Assessment: Ms. Mckinney is a 73 y.o female with a PMH significant for DM, HTN, HLD who presented to the emergency room on 08/08/19 with right hip pain after a fall and was found to have a right femoral neck fracture. - Patient Problems (1) Closed right hip fracture Code(s): S72.001A - FRACTURE OF UNSP PART OF NECK OF RIGHT FEMUR, INIT SNOMED Code(s): 822084776 Comment: - POD2, management per ortho - Continue with pain management, bowel regimen - PT/OT - PMRU declined, will go to [facility] (2) Elevated serum creatinine Code(s): R79.89 - OTHER SPECIFIED ABNORMAL FINDINGS OF BLOOD CHEMISTRY SNOMED Code(s): 773170537 Comment: - Hx of CKD? - Follow BMP, should have outpatient follow up after DC from rehab (3) HTN (hypertension) Code(s): I10 - ESSENTIAL (PRIMARY) HYPERTENSION SNOMED Code(s): 33247688 Comment: - Continue metoprolol - Hold HCTZ and losartan; note creatinine mildly elevated, appears to have CKD at baseline (4) Type II diabetes mellitus Comment: - FSBG AC- Lispro sliding scale - Hold metformin; continue monitor renal function (5) DVT prophylaxis Code(s): BIQ2363 - SNOMED Code(s): 771201219 Comment: - SCDs and Lovenox 30 mg SQ (6) Full code status Code(s): Z78.9 - OTHER SPECIFIED HEALTH STATUS SNOMED Code(s): 980317781 Status and Disposition: Inpatient. DC to [facility] when bed available.
[2019-08-12] MEDS: CMCS: Lovastatin (NF) 10 MG TAB PO SCH (21:12)
[2019-08-13] MEDS: Insulin LISPRO* 1 UNITS UNIT SUBCUT SCH ×3 (07:32→18:26)
[2019-08-13] MEDS: Docusate CAP* 100 MG PO SCH ×2 (08:46→21:16)
[2019-08-13] MEDS: Primidone TAB(*) 250 MG PO SCH ×2 (08:46→21:15)
[2019-08-13] MEDS: Metoprolol Succinate XL TAB* 25 MG PO SCH (08:46)
[2019-08-13] MEDS: Calcium/Vitamin D TAB 250/125* TAB PO SCH (08:46)
[2019-08-13] MEDS: buPROPion SR TAB.SR* 150 MG PO SCH ×2 (08:46→21:14)
[2019-08-13] MEDS: Acetaminophen TAB* 325 MG PO SCH ×3 (08:47→21:16)
[2019-08-13] MEDS: Enoxaparin(*) 30 MG/0.3 ML SYR SUBCUT SCH (08:55)
--- NOTE | 2019-08-13 09:08 | PN ---
Progress Note - Progress Note Date of Service: 08/13/19 SOAP: Subjective: [Patient seen OOB sitting in chair. She has already gotten up today and walked down the hallway without issue. She states she is feeling well. Pain is well controlled with meds. She expresses concern for where she will go for rehab, as she does not like certain places. She denies CP, SOB, f/c, n/v or calf pain.] Objective: [Gen: NAD, A&Ox3 RLE: Dressing is C/D/I. Thigh is soft and nontender. + DF/PF of the ankle with 5 /5 strength. Calf is soft and nontender without palpable cords. NVI distally.] Assessment: [POD#3 s/p right hip fx with cannulated screws] Plan: [Awaiting placement, probably will go subacute on Wednesday Continue PT/OT Continue pain meds as needed Continue Lovenox 30mg sq for DVT ppx Vital Signs Temp Pulse Resp BP Pulse Ox 98.6 F 82 18 138/65 96 08/13/19 07:14 08/13/19 07:14 08/13/19 07:34 08/13/19 07:14 08/13/19 07:14 Laboratory Last Values WBC 5.5 10^3/uL (3.5-10.8) 08/12/19 04:37 RBC 2.67 10^6 /uL (3.70-4.87) L 08/12/19 04:37 Hgb 8.9 g/dL (12.0-16.0) L 08/12/19 04:37 Hct 26 % (35-47) L 08/12/19 04:37 MCV 97 fL (80-97) 08/12/19 04:37 MCH 33 pg (27-31) H 08/12/19 04:37 MCHC 34 g/dL (31-36) 08/12/19 04:37 RDW 16 % (10-15) H 08/12/19 04:37 Plt Count 120 10^3/uL (150-450) L 08/12/19 04:37 MPV 8.1 fL (7.4-10.4) 08/12/19 04:37 Neut % (Auto) 67.0 % 08/12/19 04:37 Lymph % (Auto) 19.7 % 08/12/19 04:37 [place] % (Auto) 8.1 % 08/12/19 04:37 Eos % (Auto) 4.4 % 08/12/19 04:37 Baso % (Auto) 0.8 % 08/12/19 04:37 Absolute Neuts (auto) 3.7 10^3/ul (1.5-7.7) 08/12/19 04:37 Absolute Lymphs (auto) 1.1 10^3/ul (1.0-4.8) 08/12/19 04:37 Absolute Monos (auto) 0.4 10^3/ul (0-0.8) 08/12/19 04:37 Absolute Eos (auto) 0.2 10^3/ul (0-0.6) 08/12/19 04:37 Absolute Basos (auto) 0.0 10^3/ul (0-0.2) 08/12/19 04:37 Absolute Nucleated RBC 0.0 10^3/ul 08/12/19 04:37 Nucleated RBC % 0.0 08/12/19 04:37 INR (Anticoag Therapy) 1.01 (0.82-1.09) 08/10/19 05:46 APTT 16.6 seconds (26.0-38.0) L 08/09/19 11:55 Sodium 139 mmol/L (135-145) 08/12/19 04:37 Potassium 4.2 mmol/L (3.5-5.0) 08/12/19 04:37 Chloride 109 mmol/L (101-111) 08/12/19 04:37 Carbon Dioxide 24 mmol/L (22-32) 08/12/19 04:37 Anion Gap 6 mmol/L (2-11) 08/12/19 04:37 BUN 25 mg/dL (6-24) H 08/12/19 04:37 Creatinine 1.21 mg/dL (0.51-0.95) H 08/12/19 04:37 Est GFR ( Amer) 52.9 (>60) 08/12/19 04:37 Est GFR (Non-Af Amer) 43.7 (>60) 08/12/19 04:37 BUN/Creatinine Ratio 20.7 (8-20) H 08/12/19 04:37 Glucose 101 mg/dL (70-100) H 08/12/19 04:37 POC Glucose (mg/dL) 120 mg/dL (70-100) H 08/13/19 07:28 Calcium 7.9 mg/dL (8.6-10.3) L 08/12/19 04:37 TSH 6.54 mcIU/mL (0.34-5.60) H 08/09/19 06:14 Urine Color Yellow 08/09/19 01:55 Urine Appearance Clear 08/09/19 01:55 Urine pH 7.0 (5-9) 08/09/19 01:55 Ur Specific [place] 1.014 (1.010-1.030) 08/09/19 01:55 Urine Protein Negative (Negative) 08/09/19 01:55 Urine Ketones Negative (Negative) 08/09/19 01:55 Urine Blood Negative (Negative) 08/09/19 01:55 Urine Nitrate Negative (Negative) 08/09/19 01:55 Urine Bilirubin Negative (Negative) 08/09/19 01:55 Urine Urobilinogen Negative (Negative) 08/09/19 01:55 Ur Leukocyte Esterase Negative (Negative) 08/09/19 01:55 Urine Glucose Negative (Negative) 08/09/19 01:55 Blood Type A Positive 08/10/19 05:46 Antibody Screen Negative 08/10/19 05:46
--- NOTE | 2019-08-13 11:07 | PN ---
Subjective Date of Service: 08/13/19 Interval History: Patient seen and examined. No acute overnight events. Tolerating weight-bearing , does seem forgetful. No complaints of fever, SOB or chest pain. No calf tenderness. Family History: Unchanged from Admission Social History: Unchanged from Admission Past Medical History: Unchanged from Admission Objective Active Medications: Acetaminophen (Tylenol Tab*) 650 mg PO Q4H PRN PRN Reason: MILD PAIN or TEMP > 100.4 Last Admin: 08/11/19 17:42 Dose: 650 mg Acetaminophen (Tylenol Tab*) 975 mg PO TID [facility] Last Admin: 08/13/19 08:47 Dose: 975 mg Bupropion HCl (Wellbutrin Sr Tab*) 150 mg PO BID [facility] Last Admin: 08/13/19 08:46 Dose: 150 mg Calcium/Vitamin D (Oscal D Tab 250/125*) 2 tab PO DAILY [facility] Last Admin: 08/13/19 08:46 Dose: 2 tab Dextrose (Dextrose 50% Vial 50 Ml*) 25 ml IV PUSH .FOR FS < 60 - SS PRN PRN Reason: FS < 60 Docusate Sodium (Colace Cap*) 100 mg PO BID [facility] Last Admin: 08/13/19 08:46 Dose: 100 mg Enoxaparin Sodium (Lovenox(*)) 30 mg SUBCUT Q24H [facility] Last Admin: 08/13/19 08:55 Dose: 30 mg Insulin Human Lispro (Humalog*) 0 units SUBCUT AC [facility]; Protocol Last Admin: 08/13/19 07:32 Dose: Not Given Lovastatin (Mevacor (Nf)) 40 mg PO BEDTIME [facility]; Protocol Last Admin: 08/12/19 21:12 Dose: 40 mg Magnesium Hydroxide (Milk Of Magnesia Liq*) 30 ml PO BID PRN PRN Reason: CONSTIPATION Metoprolol Succinate (Toprol Xl Tab*) 12.5 mg PO DAILY [facility] Last Admin: 08/13/19 08:46 Dose: 12.5 mg Morphine Sulfate (Morphine Inj (Syringe)*) 4 mg IV Q6H PRN PRN Reason: PAIN - SEVERE Last Admin: 08/10/19 07:15 Dose: 4 mg Oxycodone HCl (Roxycodone Tab*) 5 mg PO Q4H PRN PRN Reason: PAIN - SEVERE Last Admin: 08/11/19 04:45 Dose: 5 mg Polyethylene Glycol/Electrolytes (Miralax*) 17 gm PO DAILY PRN PRN Reason: CONSTIPATION Last Admin: 08/10/19 21:42 Dose: 17 gm Primidone (Mysoline Tab(*)) 250 mg PO BID [place] Last Admin: 08/13/19 08:46 Dose: 250 mg Senna (Senokot 8.6 Mg Tab*) 1 tab PO BEDTIME PRN PRN Reason: CONSTIPATION Last Admin: 08/10/19 21:42 Dose: 1 tab Vital Signs - 8 hr 08/13/19 08/13/19 08/13/19 03:32 07:14 07:34 Temperature 97.9 F 98.6 F Pulse Rate 79 82 Respiratory 17 17 18 Rate Blood Pressure 140/61 138/65 (mmHg) O2 Sat by Pulse 98 96 Oximetry Oxygen Devices in Use Now: None Appearance: alert, NAD Eyes: No Scleral Icterus Ears/Nose/Mouth/Throat: Mucous Membranes Moist Neck: NL Appearance and Movements; NL JVP Respiratory: Symmetrical Chest Expansion and Respiratory Effort, Clear to Auscultation Cardiovascular: NL Sounds; No Murmurs; No JVD, RRR Abdominal: NL Sounds; No Tenderness; No Distention Extremities: No Edema, No Clubbing, Cyanosis Skin: No Rash or Ulcers, - - hip dressing CDI Neurological: Alert and Oriented x 3 Nutrition: Taking PO's Result Diagrams: 08/12/19 04:37 08/12/19 04:37 Microbiology and Other Data: Microbiology 08/08/19 21:51 Nasal Screen MRSA (PCR) - Final Nasal Mrsa Not Detected Assess/Plan/Problems-Billing Assessment: Ms. Mckinney is a 73 y.o female with a PMH significant for DM, HTN, HLD who presented to the emergency room on 08/08/19 with right hip pain after a fall and was found to have a right femoral neck fracture. - Patient Problems (1) Closed right hip fracture Code(s): S72.001A - FRACTURE OF UNSP PART OF NECK OF RIGHT FEMUR, INIT SNOMED Code(s): 149615391 Comment: - POD3, management per ortho - Continue with pain management, bowel regimen - PT/OT - PMRU declined, will go to [facility] likely Wednesday (2) Elevated serum creatinine Code(s): R79.89 - OTHER SPECIFIED ABNORMAL FINDINGS OF BLOOD CHEMISTRY SNOMED Code(s): 749636456 Comment: - Hx of CKD? - Follow BMP, should have outpatient follow up after DC from rehab (3) HTN (hypertension) Code(s): I10 - ESSENTIAL (PRIMARY) HYPERTENSION SNOMED Code(s): 69489289 Comment: - Continue metoprolol - Hold HCTZ and losartan; note creatinine mildly elevated, appears to have CKD at baseline (4) Type II diabetes mellitus Comment: - FSBG AC- Lispro sliding scale - Hold metformin; continue monitor renal function (5) DVT prophylaxis Code(s): AZV6642 - SNOMED Code(s): 441289077 Comment: - SCDs and Lovenox 30 mg SQ (6) Full code status Code(s): Z78.9 - OTHER SPECIFIED HEALTH STATUS SNOMED Code(s): 437757323 Status and Disposition: Inpatient. DC to [facility] when bed available.
[2019-08-13] MEDS: Polyethylene Glycol 3350* 17 GM PACKET PO PRN ×2 (15:29→21:12)
[2019-08-13] MEDS: CMCS: Lovastatin (NF) 10 MG TAB PO SCH (21:14)
[2019-08-13] MEDS: Senna TAB 8.6 mg* TAB PO PRN (21:15)
[2019-08-13] MEDS: Magnesium Hydroxide LIQ* 30 ML UDC PO PRN (21:17)
[2019-08-13] MEDS: oxyCODONE TAB* 5 MG TAB PO PRN (22:47)
[2019-08-14] MEDS: oxyCODONE TAB* 5 MG TAB PO PRN ×4 (02:42→23:34)
[2019-08-14] MEDS ORDERED: Ondansetron INJ* 2 MG/ML VIAL IV ONE (03:10)
[2019-08-14] MEDS: Morphine INJ* 4 MG/ML 1 ML SYRINGE (NEW SYRINGE VERSION) IV PRN (05:28)
[2019-08-14 06:25] LABS: Hematocrit 26 % (35-47); Hemoglobin 8.7 g/dL (12.0-16.0); Mean Corpuscular HGB Conc 34 g/dL (31-36); Mean Corpuscular Hemoglobin 33 pg (27-31); Mean Corpuscular Volume 98 fL (80-97); Mean Platelet Volume 7.3 fL (7.4-10.4); Platelet Count 163 10^3/uL (150-450); Red Blood Count 2.62 10^6 /uL (3.70-4.87); Red Cell Distribution Width 15 % (10-15); White Blood Count 5.6 10^3/uL (3.5-10.8)
[2019-08-14 06:41] LABS: BUN/Creatinine Ratio 24.5 (8-20); Calcium 8.3 mg/dL (8.6-10.3); EGFR African American 59.1 (>60); EGFR Non-African American 48.8 (>60); Potassium 4.5 mmol/L (3.5-5.0)
[2019-08-14] MEDS: Insulin LISPRO* 1 UNITS UNIT SUBCUT SCH ×3 (07:21→17:01)
[2019-08-14] MEDS: Calcium/Vitamin D TAB 250/125* TAB PO SCH (08:47)
[2019-08-14] MEDS: Docusate CAP* 100 MG PO SCH ×2 (08:47→23:08)
[2019-08-14] MEDS: Metoprolol Succinate XL TAB* 25 MG PO SCH (08:47)
[2019-08-14] MEDS: Enoxaparin(*) 30 MG/0.3 ML SYR SUBCUT SCH (08:47)
[2019-08-14] MEDS: Acetaminophen TAB* 325 MG PO SCH ×3 (08:47→22:07)
[2019-08-14] MEDS: buPROPion SR TAB.SR* 150 MG PO SCH ×2 (08:47→22:07)
[2019-08-14] MEDS: Primidone TAB(*) 250 MG PO SCH ×2 (08:48→22:07)
[2019-08-14] MEDS: Magnesium Hydroxide LIQ* 30 ML UDC PO PRN (11:09)
[2019-08-14] MEDS ORDERED: Bisacodyl SUPP* 10 MG SUPP PR ONE (11:34)
--- NOTE | 2019-08-14 11:48 | PN ---
Progress Note - Progress Note Date of Service: 08/14/19 Note: POD #4 s/p right hip cannulated screws: Patient is ambulating with a walker when I arrive. Her pain is well controlled and she is awaiting discharge to rehab. She has not had a bowel movement yet. She denies CP, SOB or calf pain. She actively DF/PF with intact sensation and 2+ DP pulse. Her dressing is changed today. Incision is well approximated with intact evelia without signs of infection. I will order a suppository. Wound care and follow-up instruction entered in chart for discharge when medically appropriate. Orthopedically stable for discharge.
--- NOTE | 2019-08-14 13:37 | DS ---
CC: Dr. Berhane Alex; Dr. Rony Wallis * DATE OF ADMISSION: 08/08/2019. DATE OF DISCHARGE: 08/14/2019. ATTENDING PHYSICIAN: Dr. Jef Lakhani * (dictated by Marychuy Chang NP). PRIMARY CARE PHYSICIAN: Dr. Berhane Alex. HOSPITAL COURSE: Please refer to admitting history and physical on 08/08/2019. In short, Ms. Mckinney is a 73-year-old female patient with a past medical history significant for hypertension, diabetes mellitus type 2, hyperlipidemia, left hip fracture with ORIF, Parkinson's disease, and depression who presented to the emergency department after sustaining a mechanical fall with an inability to ambulate. She complained of right hip pain. Imaging in the emergency department revealed a right subcapital fracture of the femoral neck and right hip. She was admitted by Medicine for intervention. Orthopedics was consulted. She was seen by Dr. Rony Wallis who recommended open reduction and internal fixation of the right hip. The patient underwent the procedure on 08/10/2019 which involved cannulated screws. Her medical comorbid conditions, including hypertension, hyperlipidemia, type 2 diabetes and CKD were managed. She had an uneventful postoperative course. Her pain was well-controlled. For DVT prophylaxis, she has remained on renally dosed Lovenox at 30 mg subcu q.24 hours at the recommendation of Orthopedics. In terms of her ambulation status, physical therapy and orthopedics is recommending weightbearing as tolerated; however, it was determined that she would benefit from rehab. She was not a candidate for PMRU; referrals were made for short- term rehab. On 08/14/2019, she has received a bed offer from [facility]. The patient is medically stable for discharge to that facility today. DISCHARGE DIAGNOSES: 1. Closed right hip fracture, status post ORIF. 2. CKD, at baseline. 3. Hypertension. 4. Diabetes mellitus type 2 without insulin dependence. 5. Hyperlipidemia. 6. History of Parkinson's disease. 7. History of depression. DISCHARGE MEDICATIONS: 1. Metoprolol Succinate XL 12.5 mg p.o. daily. 2. Valsartan Hydrochlorothiazide 160/12.5 one tablet p.o. daily. 3. Primidone 250 mg p.o. b.i.d. 4. Metformin 850 mg p.o. b.i.d. 5. Lovastatin 40 mg p.o. at bedtime. 6. Vitamin B12 injections 1,000 mcg intramuscularly monthly. 7. Plavix 75 mg p.o. daily. 8. Wellbutrin SR 150 mg p.o. b.i.d. New medications and changes include: 1. Senna 8.6 mg p.o. daily at bedtime as needed. 2. Lovenox 30 mg subcu q.24 hours. 3. Tylenol 650 mg q.4 hours as needed for mild pain. 4. Oxycodone 5 mg p.o. q.4 hours as needed for moderate to severe pain. 5. MiraLax 17 gm p.o. daily as needed for constipation. 6. Do no restart aspirin while on Lovenox. REVIEW OF SYMPTOMS ON THE DAY OF DISCHARGE: The patient denies any fever, fatigue, or chills. No shortness of breath. No chest pain, no nausea, no vomiting, no abdominal pain, no urinary complaints. Her surgical pain is rated a 4/10. She does have some tenderness over the hip. She denies any further arthralgias or myalgias and no further constitutional complaints. PHYSICAL EXAMINATION: General: Frail, but otherwise well-appearing woman in no acute distress. Vital Signs: Blood pressure 141/64, heart rate 70, respiratory rate 16, O2 saturation 97 percent on room air with a temperature of 97.5. HEENT: Patient is atraumatic, normocephalic. PERRLA. Nonicteric sclerae. Oral mucosa is moist. Tongue is midline. Neck: Supple, nontender. No JVD noted. No carotid bruit auscultated. Cardiovascular: S1, S2 present. No murmurs, gallops, or rubs noted. Rate and rhythm are regular. Lungs: Clear bilaterally to auscultation with no wheezing, rhonchi or rales. Abdomen: Soft, nontender, nondistended. Positive bowel sounds all four quadrants. : Deferred. Musculoskeletal: No clubbing, no cyanosis, no edema. She has some tenderness over the right hip in the tisha-incisional area. The dressing is clean, dry, and intact. There is no erythema noted around the incision. She has gross motor and sensation intact. Neurologic: Grossly intact with no focal deficits. She can be forgetful at times, but is easily reoriented. Psychiatric: She is cooperative and appropriate. LABORATORY DATA: WBC 5.6, RBC 2.62, hemoglobin 8.7, hematocrit 26, platelets 163; sodium 138, potassium 4.5, chloride 107, CO2 26, BUN 27, creatinine 1.10, GFR 48.8, glucose 102, calcium 8.3. IMAGING STUDIES: Initial x-ray of the hip on 08/08/2019 shows impacted right subcapital femoral neck fracture. DISPOSITION: The patient will be discharged to [facility]. CONDITION ON DISCHARGE: She is in stable condition. DIET: Heart-healthy, diabetic as tolerated. ACTIVITY: Weightbearing as tolerated. Physical therapy with no restrictions. FOLLOW-UP: The patient was instructed to follow-up with Dr. Wallis in two weeks for a wound check. WOUND CARE: Dry, sterile dressing changes daily. It should be noted that the patient must remain on Lovenox renally dosed at 30 mg daily times four weeks postoperatively for prophylaxis. TIME SPENT: Forty minutes on discharge planning. MARYCHUY CHANG NP [id number]/CPS #: [id number] ADDENDUM 08/15/2019: Patient was unable to leave yesterday, as rehab facility refused admission because patient did not have a bowel movement. Per RN on floor, patient had bowel movement last night and remains stable for discharge this morning. VITALIY
[2019-08-14] MEDS ORDERED: Sodium Phosphate ADULT ENEMA* 118 ml bottle PR ONE (15:00)
[2019-08-14] MEDS: CMCS: Lovastatin (NF) 10 MG TAB PO SCH (22:07)
[2019-08-15] MEDS: oxyCODONE TAB* 5 MG TAB PO PRN ×2 (03:36→09:22)
[2019-08-15 07:32] VITALS: BP 138/64
[2019-08-15] MEDS: Insulin LISPRO* 1 UNITS UNIT SUBCUT SCH (08:40)
[2019-08-15] MEDS: Calcium/Vitamin D TAB 250/125* TAB PO SCH (09:15)
[2019-08-15] MEDS: Metoprolol Succinate XL TAB* 25 MG PO SCH (09:15)
[2019-08-15] MEDS: Acetaminophen TAB* 325 MG PO SCH (09:15)
[2019-08-15] MEDS: Enoxaparin(*) 30 MG/0.3 ML SYR SUBCUT SCH (09:15)
[2019-08-15] MEDS: Primidone TAB(*) 250 MG PO SCH (09:16)
[2019-08-15] MEDS: buPROPion SR TAB.SR* 150 MG PO SCH (09:16)
[2019-08-15] MEDS: Docusate CAP* 100 MG PO SCH (09:21)
== END 2019-08-15 10:05 | DRG 482 ==
LOC: ED 16:23 → SSU 19:38
PROVIDERS: ADMIT Student in an Organized Health Care Education/Training Program; ATTEND Internal Medicine
PROC: 0QS634Z Reposition Right Upper Femur with Internal Fixation Device, Percutaneous Approach (ICD-10-PCS; principal; 2019-08-10 16:15)
DX: S72.011A Unspecified intracapsular fracture of right femur, initial encounter for closed fracture (principal); W10.8XXA Fall (on) (from) other stairs and steps, initial encounter; E11.22 Type 2 diabetes mellitus with diabetic chronic kidney disease; E11.42 Type 2 diabetes mellitus with diabetic polyneuropathy; G20 Parkinson's disease; I12.9 Hypertensive chronic kidney disease with stage 1 through stage 4 chronic kidney disease, or unspecified chronic kidney disease; N18.9 Chronic kidney disease, unspecified; E78.5 Hyperlipidemia, unspecified; F32.9 Major depressive disorder, single episode, unspecified; E87.5 Hyperkalemia; I45.10 Unspecified right bundle-branch block; R79.89 Other specified abnormal findings of blood chemistry; Z96.642 Presence of left artificial hip joint; Y92.038 Other place in apartment as the place of occurrence of the external cause; Z79.84 Long term (current) use of oral hypoglycemic drugs; Z79.02 Long term (current) use of antithrombotics/antiplatelets; Z79.82 Long term (current) use of aspirin; Z79.899 Other long term (current) drug therapy; Z88.8 Allergy status to other drugs, medicaments and biological substances; Z87.891 Personal history of nicotine dependence; Z83.3 Family history of diabetes mellitus; Z82.49 Family history of ischemic heart disease and other diseases of the circulatory system; Z80.1 Family history of malignant neoplasm of trachea, bronchus and lung; D69.6 Thrombocytopenia, unspecified
CPT/HCPCS: 36415; 80048; 81003; 82565; 84443; 84520; 85025; 85027; 85610; 85730; 86850; 86900; 86901; 87641; 93005; 96374; 96375; 97530; 99284; A9270-GY; C1713; C1776; G8978-GP-CK; G8979-GP-CI; J0690; J1100; J1644; J1650; J2250; J2270; J2405; J2704; J3010; J3490

== ENCOUNTER 2019-09-08 13:35 | Emergency (ER) | payer MEDICARE, BC ==
--- OUTSIDE RECORDS SUMMARY | 2019-09-08 14:31 | XMS REPORT ---
:1945 Author Organization [facility] Care Team Providers Name Role Phone Unavailable Unavailable Unavailable Problems This patient has no known problems. Allergies, Adverse Reactions, Alerts Allergy Allergy Status Severity Reaction(s) Onset Inactive Treating Comments Name Type Date Date Clinician Lipitor Unknown Active Unknown weakness 2018-04 Veronica -Manuel Miranda [id number] Medications Ordered Filled Start Stop Current Ordering Indication Dosage Frequency Signature Comments Components Medication Medication Date Date Medication? Clinician (SIG) Name Name No Known No Known No None None None Medications Medications For This For This Patient Patient Procedures This patient has no known procedures. Results This patient has no known results.
--- OUTSIDE RECORDS SUMMARY | 2019-09-08 14:31 | XMS REPORT | Continuity of Care Document ---
:1945 External Reference #:[id number] Author Name Rony Wallis MD (transmitted by agent of provider Lexie Saldana) Address [address] [place] [id number] Care Team Providers Name Role Phone Berhane Alex MD - Family Medicine Care Team Information Coke Drawer Hand [phone] Problems Active Problems Provider Date Closed fracture [...] stopped February Unknown smoker Smoking Status Reviewed: 08/23/19 Patient is a former stopped February smoker Exercise Type/Frequency Exercises sporadically Allergies, Adverse Reactions, Alerts Active Allergies Reaction Severity Comments Date Lipitor 04/06/2016 Medications Active Medications SIG Qnty Indications Ordering Date Provider Primidone 1 tab in am 1 tab 60tabs G25.0 Crescencio 06/22/2019 250mg Tablets in pm Barron, N.P. Plavix 1 by mouth every 90tabs Abdirizak York 12/02/2018 75mg Tablets radha Maddox M.D. Magnesium Citrate Unknown Docusate Sodium 1 tab every 12 Unknown 100mg hours as needed for Capsules constipation Acetaminophen 2 tabs by mouth Unknown 325mg every 6 hours (max Tablets 3000mg qd) Oxycodone HCL 1 - 2 tabs by mouth Unknown 5mg every 12 hours as Capsules needed pain Polyethylene Glycol please take 17 Unknown 3350 grams with one [id number] Powder glass full 8 oz. water in am and at bedtime. Milk Of Magnesia 30 milliliters by Unknown mouth every day as 400mg/5ML Suspension needed Enoxaparin Sodium every day Unknown 30mg/0.3ML Solution Mucus Relief 1 by mouth twice a Unknown 400mg day Tablets Calcium 500 + D 1 by mouth every Unknown day [id number] Tablets Bisacodyl insert 1 Unknown 10mg suppository Suppository rectally every 24 hours as needed for constipation, insert ideally after breakfast Wellbutrin SR take two tablets by Unknown 150mg mouth daily. Tablets ER 12HR Vitamin Deficiency once monthly at Unknown Injectable System-B12 doctor's 1000mcg/ML Kit Valsartan-Hydrochloro Take 1 Tablet By Unknown thiazide Mouth Every Day 160-12.5mg Tablets Metoprolol Succinate Take 1 Tablet By Unknown ER Mouth Every Day 25mg Tablets ER 24HR Aspir-81 1 by mouth every Unknown 81mg Tablets day DR Metformin HCL 1 by mouth twice a Unknown 850mg day Tablets Lovastatin 1 by mouth every Unknown 40mg Tablets night at bedtime History Medications Primidone take 4 tablets 240tabs G25.0 Will Ace, 03/17/2019 - 50mg twice a day M.D. 06/22/2019 Tablets Immunizations Description No Information Available Vital Signs Date Vital Result Comment 08/23/2019 10:03am Height 67 inches 5'7" Weight 113.00 lb Heart Rate 80 /min BP Systolic 126 mmHg BP Diastolic 72 mmHg Respiratory Rate 16 /min Body Temperature 98.1 F Pain Level 5 BMI (Body Mass Index) 17.7 kg/m2 06/22/2019 1:54pm Height 67 inches 5'7" Weight 114.00 lb Heart Rate 60 /min BP Systolic 100 mmHg BP Diastolic 62 mmHg BMI (Body Mass Index) 17.9 kg/m2 Results Test Acquired Date Facility Test Result H/L Range Note CBC Auto 08/08/2019 [facility] White Blood 10.5 10^3/uL Normal 3.5-10.[address] [place] [address] [phone] Red Blood Count 3.51 10^6/uL Low 3.70-4.87 Hemoglobin 11.8 g/dL Low 12.0-16.0 Hematocrit 34 % Low 35-47 Mean Corpuscular Volume 97 fL Normal 80-97 Mean Corpuscular Hemoglobin 34 pg High 27-31 Mean Corpuscular HGB Conc 35 g/dL Normal 31-36 Red Cell Distribution Width 16 % High 10-15 Platelet Count 134 10^3/uL Low 150-450 Mean Platelet Volume 8.1 fL Normal 7.4-10.4 Abs Neutrophils 8.5 10^3/uL High 1.5-7.7 Abs Lymphocytes 1.1 10^3/uL Normal 1.0-4.8 Abs Monocytes 0.5 10^3/uL Normal 0-0.8 Abs Eosinophils 0.3 10^3/uL Normal 0-0.6 Abs Basophils 0.1 10^3/uL Normal 0-0.2 Abs Nucleated RBC 0.0 10^3/uL Granulocyte % 80.9 % Lymphocyte % 10.9 % Monocyte % 5.0 % Eosinophil % 2.5 % Basophil % 0.7 % Nucleated Red Blood Cells % 0.0 Inr/Protime 08/08/2019 [facility] Inr 0.98 Normal 0.82-1.[address] [place] [address] [phone] Basic Metabolic 08/08/2019 [facility] Sodium 140 mmol/L Normal 135-145 Panel [address] [place] [address] [phone] Chloride 105 mmol/L Normal 101-111 Co2 Carbon Dioxide 28 mmol/L Normal 22-32 Glucose 95 mg/dL Normal 70-100 Blood Urea Nitrogen 35 mg/dL High 6-24 Creatinine 1.26 mg/dL High 0.51-0.95 BUN/Creatinine Ratio 27.8 High 8-20 Calcium 9.4 mg/dL Normal 8.6-10.3 Egfr Non- 41.7 >60 Egfr 50.5 >60 2 Potassium 5.7 mmol/L High 3.5-5.0 Anion Gap 7 mmol/L Normal 2-11 1 Standard intensity warfarin therapeutic range: 2.0-3.0 High intensity warfarin therapeutic range: 2.5-3.5 2 Because ethnic data is not always [...] 15-29 5 Kidney failure <15 (or dialysis) Procedures Date Code Description Status 08/10/2019 51103 Percutaneous TX Of Femoral FX Completed 08/10/2019 51089 Percutaneous TX Of Femoral FX Completed Medical Devices Description No Information Available Encounters Type Date Location Provider Dx Diagnosis Office Visit 08/14/2019 [facility] S72.001A Fracture of unsp 10:33a Assoc,sonia Chang, part of neck of Hospitalists ARCHITECTURAL ASSOCIATE right femur, init E11.22 Type 2 diabetes mellitus w diabetic chronic kidney disease I12.9 Hypertensive chronic kidney disease w stg 1-4/unsp chr kdny N18.9 Chronic kidney disease, unspecified E78.5 Hyperlipidemia, unspecified Office Visit 08/13/2019 10:33a [facility] S72.001A Fracture of Assoc,pc Kurt Doto, unsp part of Hospitalists ARCHITECTURAL ASSOCIATE neck of right femur, init R79.89 Other specified abnormal findings of blood chemistry I10 Essential (primary) hypertension E11.9 Type 2 diabetes mellitus without complications Office Visit 08/12/2019 10:32a [facility] S72.001A Fracture of Assoc,pc Kurt Chang, unsp part of Hospitalists ARCHITECTURAL ASSOCIATE neck of right femur, init R79.89 Other specified abnormal findings of blood chemistry I10 Essential (primary) hypertension E11.9 Type 2 diabetes mellitus without complications Office Visit 08/11/2019 [facility] S72.001A Fracture of 10:31a Assoc,pc [place], ARCHITECTURAL ASSOCIATE unsp part of Hospitalists neck of right femur, init I10 Essential (primary) hypertension E78.5 Hyperlipidemia, unspecified E11.9 Type 2 diabetes mellitus without complications D69.6 Thrombocytopenia, unspecified Office Visit 08/10/2019 [facility] S72.001A Fracture of 10:31a Assoc,pc Radha, ARCHITECTURAL ASSOCIATE unsp part of Hospitalists neck of right femur, init I10 Essential (primary) hypertension E78.5 Hyperlipidemia, unspecified E11.9 Type 2 diabetes mellitus without complications D69.6 Thrombocytopenia, unspecified Office Visit 08/09/2019 [facility] S72.001A Fracture of 10:30a Assoc,pc Radha, ARCHITECTURAL ASSOCIATE unsp part of Hospitalists neck of right femur, init I10 Essential (primary) hypertension E78.5 Hyperlipidemia, unspecified E11.9 Type 2 diabetes mellitus without complications D69.6 Thrombocytopenia, unspecified Office Visit 08/09/2019 10:46a [facility] Rony Wallis, S72.041A Disp fx of at [place] ROJAS base of neck of right femur, init for clos fx W19.xxxA Unspecified fall, initial encounter Office Visit 08/08/2019 [facility] S72.001A Fracture of 10:30a Assoc,pc Radha, ARCHITECTURAL ASSOCIATE unsp part of Hospitalists neck of right femur, init W19.xxxA Unspecified fall, initial encounter E87.5 Hyperkalemia E11.22 Type 2 diabetes mellitus w diabetic chronic kidney disease I12.9 Hypertensive chronic kidney disease w stg 1-4/unsp chr kdny N18.9 Chronic kidney disease, unspecified E78.5 Hyperlipidemia, unspecified Office Visit 06/22/2019 1:45p [facility] Will Ace, G25.0 [facility] tremor G20 Parkinson's disease Office Visit 05/31/2019 [facility] Abdirizak Maddox, I70.202 Unsp athscl 11:00a [facility] Janet [place] arteries of extremities, left leg Office Visit 03/17/2019 Luigi Solis G25.0 Essential tremor 1:30p Neurologic Janet Ace [facility] G20 Parkinson's disease Assessments Date Code Description Provider 08/23/2019 S72.001A Fracture of unspecified part of neck of Rony Wallis MD right femur, initial encounter for closed fracture 08/14/2019 S72.001A Fracture of unspecified part of neck of Christy Mendezo, ARCHITECTURAL ASSOCIATE right femur, initial encounter for closed fracture 08/14/2019 E11.22 Type 2 diabetes mellitus with diabetic Christy Kurt Bernardo, ARCHITECTURAL ASSOCIATE chronic kidney disease 08/14/2019 I12.9 Hypertensive chronic kidney disease [facility] Bernardo, ARCHITECTURAL ASSOCIATE with stage 1 through stage 4 chronic kidney disease, or unspecified chronic kidney disease 08/14/2019 N18.9 Chronic kidney disease, unspecified Christy Hicks Doto, ARCHITECTURAL ASSOCIATE 08/14/2019 E78.5 Hyperlipidemia, unspecified Christy Hicks Doto, ARCHITECTURAL ASSOCIATE 08/13/2019 S72.001A Fracture of unspecified part of neck of Christy Mendezo, ARCHITECTURAL ASSOCIATE right femur, initial encounter for closed fracture 08/13/2019 R79.89 Other specified abnormal findings of Christy Hicks Doto , ARCHITECTURAL ASSOCIATE blood chemistry 08/13/2019 I10 Essential (primary) hypertension Christy Hicks Doto, ARCHITECTURAL ASSOCIATE 08/13/2019 E11.9 Type 2 diabetes mellitus without Christy Kurt Doto, ARCHITECTURAL ASSOCIATE complications 08/12/2019 S72.001A Fracture of unspecified part of neck of Christy Mendezo, ARCHITECTURAL ASSOCIATE right femur, initial encounter for closed fracture 08/12/2019 R79.89 Other specified abnormal findings of Christy Hicks Doto , ARCHITECTURAL ASSOCIATE blood chemistry 08/12/2019 I10 Essential (primary) hypertension Christy Kurt Doto, ARCHITECTURAL ASSOCIATE 08/12/2019 E11.9 Type 2 diabetes mellitus without Christy Kurt Doto, ARCHITECTURAL ASSOCIATE complications 08/11/2019 S72.001A Fracture of unspecified part of neck of Amanda Garza , ARCHITECTURAL ASSOCIATE right femur, initial encounter for closed fracture 08/11/2019 I10 Essential (primary) hypertension Amanda Touchton, ARCHITECTURAL ASSOCIATE 08/11/2019 E78.5 Hyperlipidemia, unspecified Amanda Touchton, ARCHITECTURAL ASSOCIATE 08/11/2019 E11.9 Type 2 diabetes mellitus without Amanda Touchton, ARCHITECTURAL ASSOCIATE complications 08/11/2019 D69.6 Thrombocytopenia, unspecified Amanda Touchton, ARCHITECTURAL ASSOCIATE 08/10/2019 S72.001A Fracture of unspecified part of neck of Meg Sasser , ARCHITECTURAL ASSOCIATE right femur, initial encounter for closed fracture 08/10/2019 S72.034A Nondisplaced midcervical fracture of Lacy Reed, RPA-C right femur, initial encounter for closed fracture 08/10/2019 I10 Essential (primary) hypertension Meg Sasser, ARCHITECTURAL ASSOCIATE 08/10/2019 S72.034A Nondisplaced midcervical fracture of Rony Wallis MD right femur, initial encounter for closed fracture 08/10/2019 E78.5 Hyperlipidemia, unspecified Meg Sasser, ARCHITECTURAL ASSOCIATE 08/10/2019 E11.9 Type 2 diabetes mellitus without Meg Radha, ARCHITECTURAL ASSOCIATE complications 08/10/2019 D69.6 Thrombocytopenia, unspecified Meg Radha, ARCHITECTURAL ASSOCIATE 08/09/2019 S72.001A Fracture of unspecified part of neck of Meg Sasser , ARCHITECTURAL ASSOCIATE right femur, initial encounter for closed fracture 08/09/2019 S72.041A Displaced fracture of base of neck of Rony Wallis MD right femur, initial encounter for closed fracture 08/09/2019 I10 Essential (primary) hypertension Meg Radha, ARCHITECTURAL ASSOCIATE 08/09/2019 W19.xxxA Unspecified fall, initial encounter Rony Wallis MD 08/09/2019 E78.5 Hyperlipidemia, unspecified Meg Radha, ARCHITECTURAL ASSOCIATE 08/09/2019 E11.9 Type 2 diabetes mellitus without Meg Sasser, ARCHITECTURAL ASSOCIATE complications 08/09/2019 D69.6 Thrombocytopenia, unspecified Meg Sasser, ARCHITECTURAL ASSOCIATE 08/08/2019 S72.001A Fracture of unspecified part of neck of Meg Sasser , ARCHITECTURAL ASSOCIATE right femur, initial encounter for closed fracture 08/08/2019 W19.xxxA Unspecified fall, initial encounter Meg Sasser, ARCHITECTURAL ASSOCIATE 08/08/2019 E87.5 Hyperkalemia Meg Radha, ARCHITECTURAL ASSOCIATE 08/08/2019 E11.22 Type 2 diabetes mellitus with diabetic Meggunnar Garcia NP chronic kidney disease 08/08/2019 I12.9 Hypertensive chronic kidney disease Meg Garcia NP with stage 1 through stage 4 chronic kidney disease, or unspecified chronic kidney disease 08/08/2019 N18.9 Chronic kidney disease, unspecified Meg Sasser, AMAURY 08/08/2019 E78.5 Hyperlipidemia, unspecified Meg Garcia, AMAURY 06/22/2019 G25.0 Essential tremor Will Ace M.D. 06/22/2019 G20 Parkinson's disease Will Ace M.D. 05/31/2019 I70.202 Unspecified atherosclerosis of [place] Abdirizak Chela Maddox M.D. arteries of extremities, left leg 03/17/2019 G25.0 Essential tremor Will Ace M.D. 03/17/2019 G20 Parkinson's disease Will Ace M.D. Plan of Treatment Future Appointment(s):09/29/2019 2:45 pm - Rony Wallis MD at [facility] at [facility]/22/2019 1:45 pm - Will Ace M.D. at [facility]08/23/2019 - Rony Wallis, MDS72.001A Fracture of unspecified part of neck of right femur, initial encounter for closed fractureNew Xrays:Hip Right 2 Views And Pelvis [id number] - [id number], Ordered: Follow up:Follow Up: 1 month Functional Status Description No Information Available Mental Status Description No Information Available Referrals Description No Information Available
--- OUTSIDE RECORDS SUMMARY | 2019-09-08 14:31 | XMS REPORT ---
:1945 Author Organization [facility] Care Team Providers Name Role Phone Unavailable Unavailable Unavailable Problems This patient has no known problems. Allergies, Adverse Reactions, Alerts Allergy Allergy Status Severity Reaction(s) Onset Inactive Treating Comments Name Type Date Date Clinician Lipitor Unknown Active Unknown weakness 2018-04 Veronica -13 Ruben [id number] Medications Ordered Filled Start Stop Current Ordering Indication Dosage Frequency Signature Comments Components Medication Medication Date Date Medication? Clinician (SIG) Name Name No Known No Known No None None None Medications Medications For This For This Patient Patient Procedures This patient has no known procedures. Results This patient has no known results.
--- OUTSIDE RECORDS SUMMARY | 2019-09-08 14:31 | XMS REPORT ---
:1945 Author Organization [facility] Care Team Providers Name Role Phone Unavailable Unavailable Unavailable Problems This patient has no known problems. Allergies, Adverse Reactions, Alerts Allergy Allergy Status Severity Reaction(s) Onset Inactive Treating Comments Name Type Date Date Clinician Lipitor Unknown Active Unknown weakness 2018-04 Veronica -Manuel Miranda [id number] Medications Ordered Filled Start Stop Current Ordering Indication Dosage Frequency Signature Comments Components Medication Medication Date Date Medication? Clinician (SIG) Name Name No Known No Known No None None None Medications Medications For This For This Patient Patient Procedures This patient has no known procedures. Results This patient has no known results.
--- OUTSIDE RECORDS SUMMARY | 2019-09-08 14:31 | XMS REPORT ---
:1945 Author Organization [facility] Care Team Providers Name Role Phone Unavailable Unavailable Unavailable Problems This patient has no known problems. Allergies, Adverse Reactions, Alerts Allergy Allergy Status Severity Reaction(s) Onset Inactive Treating Comments Name Type Date Date Clinician Lipitor Unknown Active Unknown weakness 2018-04 Veronica -Manuel Miranda [id number] Medications Ordered Filled Start Stop Current Ordering Indication Dosage Frequency Signature Comments Components Medication Medication Date Date Medication? Clinician (SIG) Name Name No Known No Known No None None None Medications Medications For This For This Patient Patient Procedures This patient has no known procedures. Results This patient has no known results.
--- OUTSIDE RECORDS SUMMARY | 2019-09-08 14:31 | XMS REPORT ---
:1945 Author Organization [facility] Care Team Providers Name Role Phone Unavailable Unavailable Unavailable Problems Condition Condition Condition Status Onset Resolution Last Treating Comments Name Details Category Date Date Treatment Clinician Date Pain frequent Pain Mgmt Active 2018-09 Kenna pain 11-08 [place]ky 09:00: [id number] Respiratory dyspnea Respirator Active 2018-09 Kenna present y 11-08 [place] 09:00: [id number] 00 Endo/Charly anti-coagul Endo/Charly Active 2018-09 Kenna ation 11-08 [place] therapy 09:00: [id number] 00 Endo/Charly diabetic Endo/Charly Active 2018-09 Kenna foot care 11-08 [place] 09:00: [id number] 00 Sensory impaired Sensory Active 2018-09 Kenna hearing 11-08 [place] 09:00: [id number] 00 Integument pressure Integument Active 2018-09 Kenna ulcer 11-08 [place] present 09:00: [id number] 00 Integument skin Integument Active 2018-09 Kenna integrity 11-08 [place] risk 09:00: [id number] 00 Nutrition nutritional Nutrition Active 2018-09 Kenna restriction 11-08 [place] s 09:00: [id number] 00 Neuro confusion Neuro/Emot Active 2018-09 Kenna present ion 11-08 [place] 09:00: [id number] 00 Neuro anxiety Neuro/Emot Active 2018-09 Kenna present ion 11-08 [place] 09:00: [id number] 00 Neuro impaired Neuro/Emot Active 2018-09 Kenna decision-ma ion 11-08 [place] yahir 09:00: [id number] 00 Activity ADL Activity Active 2018-09 Kenna assistance 11-08 [place] required 09:00: [id number] 00 Activity self-care Activity Active 2018-09 Kenna deficit 11-08 [place] 09:00: [id number] 00 Safety structural Safety Active 2018-09 Kenna barriers - [place] present 09:00: [id number] 00 Safety knowledge/s Safety Active 2018-09 Kenna kill 11-08 [place] deficit: pt 09:00: [id number] 00 Safety fall risk Safety Active 2018- Kenna factor - [place] present 09:00: [id number] 00 Safety risk for Safety Active 2018-09 Kenna hospitaliza 11-08 [place] tion 09:00: [id number] 00 Safety safety Safety Active 2018- Kenna hazards - [place] present 09:00: [id number] 00 Safety sanitation Safety Active 2018- Kenna hazards - [place] present 09:00: [id number] 00 Medication oral med Meds Active 2018-09 Kenna assistance 11-08 [place] required 09:00: [id number] 00 Medication potential Meds Active 2018-09 Kenna clinically 11-08 [place] significant 09:00: [id number] medication 00 issue Medication knowledge/s Meds Active 2018-09 Kenna kill 11-08 [place] deficit: pt 09:00: [id number] 00 Musculoskel transfer Musculoske Active 2018- Kenna etal assistance letal 11-08 [place] required 09:00: [id number] 00 Musculoskel requires Musculoske Active 2018-09 Kenna etal human letal 11-08 [place] assist to 09:00: [id number] leave home 00 Integument knowledge/s Integument Active 2018- Paul kahn - Kobziewicz deficit: pt 10:15: [id number] 00 Neuro knowledge/s Neuro/Emot Active 2018- Paul kahn ion - Kobziewicz deficit: pt 10:15: [id number] 00 Activity knowledge/s Activity Active 2018- Paul kahn -12 Kobziewicz deficit: pt 10:15: [id number] 00 Safety can be left Safety Active 2018- Paul greenberg for 11-08 Angel only short 10:15: [id number] periods 00 Diagnoses knowledge/s Diagnoses Active 2018- Paul kahn - Kobziewicz deficit: pt 10:15: [id number] 00 Strength/To knowledge/s PT: Active 2018-09 Paul ne/Motor femi Strength - [place] Control deficit LE: 10:15: [id number] pt 00 Bed knowledge/s PT/OT: Bed Active 2018-09 Paul Mobility/Tr kill Mobility/T 2-12 Kobziewicz ansfer deficit: pt ransfer 10:15: [id number] 00 Balance/End balance/asset management coordinator PT/OT: Active 2018-09 Paul urance rdination Balance/En 2-12 Kobziewicz deficit durance 10:15: [id number] 00 OT: Self self-care OT: Active 2018-09 Paul Care deficit Self-Care 2-12 Kobziewicz 10:15: [id number] 00 OT: Self knowledge/s OT: Active 2018-09 Paul Care kill Self-Care 2-12 Kobziewicz deficit: pt 10:15: [id number] 00 Gait/Locomo stair PT/OT: Active 2018-09 Paul tion management Gait/Locom 2-12 Kobziewicz problems req otion 10:15: [id number] 00 Gait/Locomo gait PT/OT: Active 2018-09 Paul tion assistive Gait/Locom 2-12 Kobziewicz problems device otion 10:15: [id number] present 00 Gait/Locomo knowledge/s PT/OT: Active 2018-09 Paul tion kill Gait/Locom 2-12 Kobziewicz problems deficit: pt otion 10:15: [id number] 00 Gait/Locomo gait PT/OT: Active 2018-09 Paul tion deficit Gait/Locom 2-12 Kobziewicz problems otion 10:15: [id number] 00 Allergies, Adverse Reactions, Alerts Allergy Allergy Status Severity Reaction(s) Onset Inactive Treating Comments Name Type Date Date Clinician Lipitor Unknown Active Unknown weakness 2018-04 Veronica -13 Ruben [id number] Medications Ordered Filled Start Stop Current Ordering Indication Dosage Frequency Signature Comments Components Medication Medication Date Date Medication? Clinician (SIG) Name Name Aspirin Low Aspirin Low 2018-09 Yes Isai Unknown Unknown Dose 81 mg Dose 81 mg 2-12 Berhane ROJAS tablet,alex tablet,alex yed release yed release metFORMIN metFORMIN 2018-09 Yes Isai Unknown Unknown 850 mg 850 mg 2-12 Berhane ROJAS tablet tablet valsartan valsartan 2018-09 Yes Isai Unknown Unknown 160 160 2-12 Berhane ROJAS mg-hydrochl mg-hydrochl orothiazide orothiazide 12.5 mg 12.5 mg tablet tablet metoprolol metoprolol 2018-09 Yes Isai Unknown Unknown succinate succinate 2-12 Berhane ROJAS ER 25 mg ER 25 mg tablet,exte tablet,exte nded nded release 24 release 24 hr hr buPROPion buPROPion 2018-09 Yes Isai Unknown Unknown HCl 150 mg HCl 150 mg 2-12 MD,Berhane tablet,12 tablet,12 hr hr sustained-r sustained-r elease(smok elease(smok ing ing deterrent) deterrent) Calcium 500 Calcium 500 2018-09 Yes Isai Unknown Unknown + D 500 mg + D 500 mg 2-12 ,Berhane (1,250 (1,250 mg)-200 mg)-200 unit tablet unit tablet lovastatin lovastatin 2018-09 Yes Isai Unknown Unknown 40 mg 40 mg 2-12 ,Berhane tablet tablet oxyCODONE 5 oxyCODONE 5 2018-09 Yes Isai Unknown Unknown mg tablet mg tablet 2-12 Berhane ROJAS clopidogrel clopidogrel 2018-09 Yes Isai Unknown Unknown 75 mg 75 mg 2-12 ,Berhane tablet tablet primidone primidone 2018-09 Yes Isai Unknown Unknown 250 mg 250 mg 2-12 ,Berhane tablet tablet senna 8.6 senna 8.6 2018-09 Yes Isai Unknown Unknown mg tablet mg tablet 2-12 Berhane ROJAS Tylenol 325 Tylenol 325 2018-09 Yes Isai Unknown Unknown mg tablet mg tablet 2-12 Berhane ROJAS bisacodyl 5 bisacodyl 5 2018-09 Yes Isai Unknown Unknown mg tablet mg tablet 2-12 Berhane ROJAS Vital Signs Vital Name Observation Time Observation Value Comments SYSTOLIC mm[Hg] 2019-09-07 18:09:19 128 mm[Hg] mm[Hg] Method: Sit SYSTOLIC mm[Hg] 2019-09-07 18:09:19 126 mm[Hg] mm[Hg] Method: Stand DIASTOLIC mm[Hg] 2019-09-07 18:09:19 60 mm[Hg] mm[Hg] Method: Sit DIASTOLIC mm[Hg] 2019-09-07 18:09:19 62 mm[Hg] mm[Hg] Method: Stand PULSE 2019-09-07 18:09:19 86 /min /min RESP RATE 2019-09-07 18:09:19 18 /min /min TEMP 2019-09-07 18:09:19 97.9 [degF] Procedures This patient has no known procedures. Results This patient has no known results.
--- NOTE | 2019-09-08 14:48 | ED ---
GI/ HPI - HPI Summary HPI Summary: This patient is a 73 year old female presenting to [facility] with a chief complaint of rectal bleeding. The patient is recovering from a right hip fracture and recently had a wound in her rectal area while in rehab which is she states is bleeding. She said she went to go to the bathroom and the toilet was full of blood. Pt denies any fever, chills, erythema of eyes, sore throat, CP, SOB, cough, abdominal pain, N/V, dysuria, hematuria, myalgia, edema, rash, or dizziness - History of Current Complaint Chief Complaint: EDGeneral Time Seen by Provider: 09/08/19 14:24 Stated Complaint: RECTAL BLEED Hx Obtained From: Patient Onset/Duration: Started Hours Ago Pain Intensity: 8 Location of Pain: Rectal - Additional Pertinent History Primary Care Physician: CELINA - Allergy/Home Medications Allergies/Adverse Reactions: Allergies Allergy/AdvReac Type Severity Reaction Status Date / Time atorvastatin Allergy Fatigue/ Verified 08/08/19 16:26 WEAK PMH/Surg Hx/FS Hx/Imm Hx Endocrine/Hematology History: Reports: Hx Diabetes Denies: Hx Anticoagulant Therapy, Hx Blood Disorders, Hx Blood Transfusions, Hx Bone Marrow Disease, Hx Systemic Lupus Erythematosus, Hx Sickle Cell Disease , Hx Thyroid Disease, Hx Anemia, Hx Unexplained Bleeding, Other Endocrine/ Hematological Disorders Cardiovascular History: Reports: Hx Hypercholesterolemia, Hx Hypertension Denies: Hx Aneurysm, Hx Angina, Hx Angioplasty, Hx Auto Implanted Cardiovert Defib, Hx Cardiac Arrest, Hx Cardiomegaly, Hx Congenital Heart Disease, Hx Congestive Heart Failure, Hx Coronary Artery Disease, Hx Deep Vein Thrombosis, Hx Embolism, Hx Hypotension, Hx Myocardial Infarction, Hx Pacemaker/ICD, Hx Peripheral Vascular Disease, Hx Rheumatic Fever, Hx Syncope, Hx Valvular Heart Disease, Other Cardiovascular Problems/Disorders Respiratory History: Reports: Hx Pneumonia Denies: Hx Asthma, Hx Chronic Bronchitis, Hx Chronic Obstructive Pulmonary Disease (COPD), Hx Cystic Fibrosis, Hx Lung Cancer, Hx Pleural Effusion, Hx Pulmonary Edema, Hx Pulmonary Embolism, Hx Seasonal Allergies, Hx Sleep Apnea, Other Respiratory Problems/Disorders GI History: Denies: Hx Cirrhosis, Hx Crohn's Disease, Hx Diverticulosis, Hx Gall Bladder Disease, Hx Gastroesophageal Reflux Disease, Hx Gastrointestinal Bleed, Hx Hiatal Hernia, Hx Irritable Bowel, Hx Jaundice, Hx Obstructive Bowel, Hx Ileostomy, Hx Pyloric Stenosis, Hx Ulcer, Other GI Disorders History: Reports: Other Problems/Disorders - UTI in the past Denies: Hx Renal Disease Musculoskeletal History: Denies: Hx Arthritis Sensory History: Reports: Hx Contacts or Glasses Denies: Hx Cataracts, Hx Eye Injury, Hx Eye Prosthesis, Hx Glaucoma, Hx Legally Blind, Hx Macular Degeneration, Hx Vision Problem, Hx Deafness, Hx Hearing Aid, Hx Hearing Problem, Other Sensory Impairments Opthamlomology History: Reports: Hx Contacts or Glasses Denies: Hx Cataracts, Hx Eye Injury, Hx Eye Prosthesis, Hx Glaucoma, Hx Legally Blind, Hx Macular Degeneration, Hx Vision Problem, Other Sensory Impairments Neurological History: Reports: Other Neuro Impairments/Disorders - Parkinson's Denies: Hx Dementia, Hx Developmental Delay, Hx Headaches, Hx Migraine, Hx Nerve Disease, Hx Seizures, Hx Spinal Cord Injury, Hx Transient Ischemic Attacks (TIA) Psychiatric History: Reports: Hx Anxiety - for OR, Hx Depression Denies: Hx Panic Disorder, Hx of Violent Episodes Against Others - Surgical History Surgery Procedure, Year, and Place: 2008 RIGHT shoulder repair,. tonsilectomy, . LT hip replacement - HEMIARTHROPLASTY D/T FX, - [facility] Hx Anesthesia Reactions: No Infectious Disease History: No Infectious Disease History: Denies: Hx Hepatitis, Hx Human Immunodeficiency Virus (HIV), Hx of Known/ Suspected MRSA, Hx Tuberculosis, Traveled Outside the [place] in Last 30 Days - Family History Known Family History: Negative: Hypertension, Diabetes - Social History Alcohol Use: None Alcohol Amount: unknown Hx Substance Use: No Substance Use Type: Reports: None Hx Tobacco Use: Yes Smoking Status (MU): Former Smoker Type: Cigarettes Amount Used/How Often: one pack a day Length of Time of Smoking/Using Tobacco: 40 years Have You Smoked in the Last Year: Yes Review of Systems Negative: Fever, Chills Negative: Erythema Negative: Sore Throat Negative: Chest Pain Negative: Shortness Of Breath, Cough Negative: Abdominal Pain, Vomiting, Nausea Negative: dysuria, hematuria Negative: Myalgia, Edema Negative: Rash Neurological: Other - Neg: Dizziness All Other Systems Reviewed And Are Negative: No Physical Exam - Summary Physical Exam Summary: Constitutional: Well-developed, Well-nourished, Alert. (-) Distressed Skin: Warm, Dry HENT: Normocephalic; Atraumatic Eyes: Conjunctiva normal Neck: Musculoskeletal ROM normal neck. (-) JVD, (-) Stridor, (-) Tracheal deviation Cardio: Rhythm regular, rate normal, Heart sounds normal; Intact distal pulses; The pedal pulses are 2+ and symmetric. Radial pulses are 2+ and symmetric. (-) Murmur Pulmonary/Chest wall: Effort normal. (-) Respiratory distress, (-) Wheezes, (-) Rales Abd: Soft, (-) tenderness, (-) Distension, (-) Guarding, (-) Rebound Musculoskeletal: (-) Edema Lymph: (-) Cervical adenopathy Neuro: Alert, Oriented x3 Psych: Mood and affect Normal Rectal: [employer] AJ present. Silver-dollar side decubitus ulcer down to stage 2 with no erythema, induration, or drainage. Triage Information Reviewed: Yes Vital Signs On Initial Exam: Initial Vitals Temp Pulse Resp BP Pulse Ox 97.5 F 97 18 144/91 99 09/08/19 13:44 09/08/19 13:44 09/08/19 13:44 09/08/19 13:44 09/08/19 13:44 Vital Signs Reviewed: Yes Procedures - Sedation Patient Received Moderate/Deep Sedation with Procedure: No Diagnostics - Vital Signs Vital Signs Temp Pulse Resp BP Pulse Ox 09/08/19 13:49 109 98 09/08/19 13:44 97.5 F 97 18 144/91 99 - Laboratory Lab Statement: Any lab studies that have been ordered have been reviewed, and results considered in the medical decision making process. GIGU Course/Dx - Course Course Of Treatment: This patient is a 73 year old female presenting to [facility] with a chief complaint of rectal bleeding. The patient is recovering from a right hip fracture and recently had a wound in her rectal area while in rehab which is she states is bleeding. Wound patch was removed and replaced. I left a message for Dr. Marin on backline to get an appointment for her into wound care to follow up in 2-3 days. . Zero-form gauze with 4X4 applied the wound. A plan for discharge was discussed with the patient and she was agreeable with this plan. - Diagnoses Provider Diagnoses: Decubitus ulcer Discharge ED - Sign-Out/Discharge Documenting (check all that apply): Patient Departure - Discharge - Discharge Plan Condition: Stable Disposition: HOME Patient Education Materials: Acute Wound Care (ED) Referrals: Jayme Marin MD [Medical Doctor] - 3 Days Berhane Alex MD [Primary Care Provider] - 3 Days Additional Instructions: Follow up with Dr. Marin, service specialist, and your primary care provider in 2-3 days. Return to ED with new or worsening symptoms. - Attestation Statements Document Initiated by Scribe: Yes Documenting Scribe: Marcos Jovel Provider For Whom Scribe is Documenting (Include Credential): Ayad Saini MD Scribe Attestation: I, Marcos Jovel, scribed for Ayad Saini MD on 09/08/19 at 1523. Status of Scribe Document: Ready
[2019-09-08 16:53] VITALS: BP 138/75
== END 2019-09-08 17:23 | disposition home or self-care (01) ==
LOC: ED 13:35
DX: L89.312 Pressure ulcer of right buttock, stage 2 (principal); E11.9 Type 2 diabetes mellitus without complications; E78.00 Pure hypercholesterolemia, unspecified; I10 Essential (primary) hypertension; G20 Parkinson's disease; F41.9 Anxiety disorder, unspecified; F32.9 Major depressive disorder, single episode, unspecified; Z96.642 Presence of left artificial hip joint; Z87.891 Personal history of nicotine dependence; Z88.8 Allergy status to other drugs, medicaments and biological substances
CPT/HCPCS: 99283